=== PATIENT | female | born 1970 | race African-American/Black ===

== ENCOUNTER 2020-09-09 23:21 | Inpatient (IN) | payer MEDICARE, MEDICAID ==
[2020-09-10 00:23] LABS: #Basophils 0.1 thou/uL (0.0-0.2); #Eosinphils 0.2 thou/uL (0.0-0.7); #Lymphocytes 1.8 thou/uL (1.20-3.40); #Monocytes 0.4 thou/uL (0.11-0.59); #Neutrophils 8.2 thou/uL (1.40-6.50); %Basophils 1.3 % (0.0-1.0); %Eosinophils 1.5 % (0.0-10.0); %Monocytes 3.4 % (0.0-10.0); %Neutrophils 76.8 % (42.0-75.0); Hemoglobin 13.8 g/dL (12.0-16.0); Mean Corpuscular HGB CONC 31.9 g/dL (32.0-36.0); Mean Corpuscular Hemoglobin 32.3 pg (27.0-31.0); Mean Platelet Volume 10.3 fL (7.4-10.4); Platelet Count 160 thou/uL (130-400); RBC Distribution Width 14.7 % (11.5-14.5); Red Blood Cell (RBC) Count 4.27 mill/uL (4.20-5.40); White Blood Cell (WBC) Count 10.6 thou/uL (4.8-10.8)
[2020-09-10 00:45] LABS: ALT (SGPT) 10 U/L (8-55); AST (SGOT) 20 U/L (5-34); Alkaline Phosphatase 63 U/L (40-110); Anion Gap 16 mmol/L (10-20); BUN (Urea Nitrogen) 13 mg/dL (9.8-20.1); Bilirubin, Total 0.3 mg/dL (0.2-1.2); Calc. Creatinine Clearance 0 mL/min (70-130); Calcium 8.8 mg/dL (7.8-10.44); Carbon Dioxide 23 mmol/L (22-29); Chloride 109 mmol/L (98-107); Globulin 4.7 g/dL (2.4-3.5); Glucose 295 mg/dL (70-105); Potassium 3.7 mmol/L (3.5-5.1); Protein, Total 7.7 g/dL (6.0-8.3); Sodium 144 mmol/L (136-145)
[2020-09-10 01:06] LABS: CKMB 0.6 ng/mL (0-6.6)
[2020-09-10] MEDS ORDERED: Succinylcholine 200 MG/10 ml SYRINGE FS ONE ×2 (01:55→13:55)
[2020-09-10] MEDS ORDERED: Propofol 1,000 MG/100 ML VIAL IV ONE ×2 (02:02→06:29)
[2020-09-10] MEDS ORDERED: Fentanyl CADD 100 ML IV SCH (02:15)
[2020-09-10] MEDS ORDERED: Fentanyl BOLUS 250 ML IVPB PRN ×2 (02:15→05:00)
[2020-09-10] MEDS ORDERED: Ketamine 50 MG/ML (10ML VIAL) ONE (02:42)
[2020-09-10 03:19] LABS: Lactic Acid 2.8 mmol/L (0.5-2.2)
[2020-09-10] MEDS ORDERED: Vecuronium 10 MG VIAL ONE ×3 (03:35→05:16)
[2020-09-10] MEDS ORDERED: Norepinephrine 4 MG/4 ML VIAL ONE (04:24)
[2020-09-10] MEDS ORDERED: Norepinephrine 8 MG/0.9% NS 250 ML ONE (04:30)
[2020-09-10] MEDS ORDERED: Norepinephrine 8 MG/0.9% NS 250 ML IVPB SCH (04:30)
[2020-09-10] MEDS ORDERED: Water For Inject, Bacteriostat 30 ML ONE ×2 (04:36→05:17)
[2020-09-10] MEDS ORDERED: HYDROcodone/Acetaminophen 5/325 mg Tablet PO PRN (04:39)
[2020-09-10] MEDS ORDERED: cloNIDine 0.1 MG TAB PO PRN (04:39)
[2020-09-10] MEDS ORDERED: Labetalol HCl 100 MG/20 ML VIAL SLOW IVP PRN (04:39)
[2020-09-10] MEDS ORDERED: Guaifenesin DM 100-10/5 ML UDCUP PO PRN (04:39)
[2020-09-10] MEDS ORDERED: Acetaminophen 325 MG TAB PO PRN (04:39)
[2020-09-10] MEDS ORDERED: Promethazine HCl 12.5 MG in Sodium Chloride 0.9% 50 ML IVPB PRN (04:39)
[2020-09-10] MEDS ORDERED: hydrALAZINE 20 MG/ML VIAL SLOW IVP PRN (04:39)
[2020-09-10] MEDS ORDERED: Ondansetron PF 4 MG/2 ML Vial IVP PRN (04:39)
[2020-09-10] MEDS ORDERED: Morphine 2 MG/ML VIAL SLOW IVP PRN ×2 (04:39→05:00)
[2020-09-10] MEDS ORDERED: Norepinephrine 8 MG/0.9% NS 250 ML IVPB PRN (04:42)
[2020-09-10] MEDS ORDERED: Acetaminophen 325 MG/10.15 ML UDCUP PO PRN (04:42)
[2020-09-10] MEDS ORDERED: Phenylephrine 40 MG in Sodium Chloride 0.9% 250 ML 250 ML IVPB PRN (04:42)
[2020-09-10] MEDS ORDERED: Acetaminophen 325 MG Suppository PR PRN (04:42)
[2020-09-10] MEDS ORDERED: Ventilator Sedation Protocol 1 EACH FS SCH (04:45)
[2020-09-10] MEDS ORDERED: Electrolyte Replacement Protocol 1 EACH FS SCH (04:45)
[2020-09-10 04:47] LABS: Actual Bicarbonate (HCO3a) 24.2 mEq/L (22-28); Analyzer IN Cardio ER; Base Excess (BEa) -0.5 mEq/L (-2.0 to +3.0); CO2 Tension 40.4 mmHg (35.0-45.0); Calcium, Ionized (arterial) 1.18 mmol/L (1.12-1.30); Carboxyhemoglobin (COHb) 0.5 gm% (0.0-3.0); Hemoglobin (Hb) 14.4 g/dL (12.0-16.0); Potassium - ABG Lab 3.78 mmol/L (3.70-5.30)
[2020-09-10 04:49] LABS: Actual Bicarbonate (HCO3a) 19.4 mEq/L (22-28); Analyzer IN Cardio ER; Base Excess (BEa) -8.1 mEq/L (-2.0 to +3.0); CO2 Tension 47.5 mmHg (35.0-45.0); Calcium, Ionized (arterial) 1.16 mmol/L (1.12-1.30); Carboxyhemoglobin (COHb) 0.4 gm% (0.0-3.0); Hemoglobin (Hb) 14.2 g/dL (12.0-16.0); Potassium - ABG Lab 3.68 mmol/L (3.70-5.30)
[2020-09-10 04:50] LABS: O2 Tension (PaO2), arterial 47.7 mmHg (80.0-100.0); Puncture Site RBA
[2020-09-10 04:52] LABS: O2 Tension (PaO2), arterial 59.4 mmHg (80.0-100.0); Puncture Site Arterial Line; pH, Arterial 7.23 (7.35-7.45)
[2020-09-10 04:53] LABS: ALV-art Gradient 594.225 mmHg (0-20)
[2020-09-10] MEDS ORDERED: cefTRIAXone\\ROCEPHIN 1 GM in Sodium Chloride 0.9% 100 ML IVPB SCH (05:00)
[2020-09-10] MEDS ORDERED: Azithromycin 500 MG in Sodium Chloride 0.9% 250 ML 250 ML IVPB SCH (05:00)
[2020-09-10] MEDS ORDERED: DISCONTINUE PREVIOUS NARCOTIC PAIN MEDICATIONS AND BENZODIAZEPINES FS SCH (05:00)
[2020-09-10] MEDS ORDERED: Propofol BOLUS 1,000 MG/100 ML VIAL IV PRN (05:00)
[2020-09-10] MEDS ORDERED: Azithromycin 500 MG VIAL ONE (05:16)
[2020-09-10] MEDS ORDERED: cefTRIAXone\\ROCEPHIN 1 GM VIAL ONE (05:16)
[2020-09-10] MEDS ORDERED: Vecuronium 10 MG VIAL IVP PRN (05:24)
[2020-09-10] MEDS ORDERED: Dexamethasone 10 MG/ML VIAL ONE (05:34)
[2020-09-10] MEDS: Dexamethasone 4 mg/ml Vial SLOW IVP SCH (05:36)
[2020-09-10] MEDS ORDERED: Dextrose 5 % And 0.9 % NaCl 1,000 ML IV SCH ×2 (07:15→07:33)
[2020-09-10] MEDS: Heparin 5,000 UNITS/ML VIAL SC SCH ×3 (08:23→20:17)
[2020-09-10] MEDS: Famotidine/PF 20 mg/2ml Vial SLOW IVP SCH ×2 (08:24→20:17)
[2020-09-10] MEDS: Polyethylene Glycol 3350 17 GM Packet PO SCH (08:24)
[2020-09-10] MEDS: Propofol 1,000 MG/100 ML VIAL IV PRN ×5 (08:25→23:23)
[2020-09-10] MEDS ORDERED: Heparin 5,000 UNITS/ML VIAL SC SCH (09:00)
[2020-09-10] MEDS ORDERED: Famotidine 20 MG TAB PO SCH (09:00)
[2020-09-10] MEDS ORDERED: Iopamidol-370 76% 500 ML 1 ML ONE (10:05)
[2020-09-10] MEDS: NPH, Human Insulin Isophane 300 UNIT/3 ML VIAL SC SCH ×2 (11:03→21:38)
[2020-09-10] MEDS: Fentanyl CADD 100 ML IV SCH (12:15)
[2020-09-10] MEDS ORDERED: Insulin Regular 300 UNITS/3 ML VIAL ONE (14:36)
[2020-09-10] MEDS: HumaLOG 300 UNITS/3 ML VIAL SC PRN ×2 (14:39→21:38)
[2020-09-10] MEDS: Azithromycin 500 MG in Sodium Chloride 0.9% 250 ML 250 ML IVPB SCH (20:16)
[2020-09-10] MEDS: cefTRIAXone\\ROCEPHIN 1 GM in Sodium Chloride 0.9% 100 ML IVPB SCH (20:17)
[2020-09-10] MEDS ORDERED: Enoxaparin Sodium 40 MG/0.4 ML SYRINGE SC SCH (21:00)
[2020-09-11] MEDS: Propofol 1,000 MG/100 ML VIAL IV PRN ×6 (03:13→19:56)
[2020-09-11 04:15] LABS: Band 41 % (5-11); Hemoglobin 12.7 g/dL (12.0-16.0); Lymphocytes 9 % (21-51); MDiff Complete? YES; Mean Corpuscular Hemoglobin 32.6 pg (27.0-31.0); Mean Corpuscular Volume 98.9 fL (78.0-98.0); Mean Platelet Volume 10.2 fL (7.4-10.4); Monocytes 6 % (0-10); Neutrophil 44 % (42-75); Platelet Count 177 thou/uL (130-400); Platelet Morphology Comment Appears Adequate; RBC Distribution Width 14.9 % (11.5-14.5); Red Blood Cell (RBC) Count 3.91 mill/uL (4.20-5.40); Reflex for Review?? NO; White Blood Cell (WBC) Count 16.4 thou/uL (4.8-10.8)
[2020-09-11 04:30] LABS: Anion Gap 22 mmol/L (10-20); BUN (Urea Nitrogen) 15 mg/dL (9.8-20.1); Calc. Creatinine Clearance 135 mL/min (70-130); Calcium 8.7 mg/dL (7.8-10.44); Carbon Dioxide 15 mmol/L (22-29); Chloride 121 mmol/L (98-107); Glucose 203 mg/dL (70-105); Magnesium 2.4 mg/dL (1.6-2.6); Potassium 3.7 mmol/L (3.5-5.1); Sodium 154 mmol/L (136-145)
[2020-09-11] MEDS: Dexamethasone 4 mg/ml Vial SLOW IVP SCH (05:16)
[2020-09-11] MEDS: HumaLOG 300 UNITS/3 ML VIAL SC PRN (05:26)
[2020-09-11] MEDS: Polyethylene Glycol 3350 17 GM Packet PO SCH (08:00)
[2020-09-11] MEDS: Famotidine/PF 20 mg/2ml Vial SLOW IVP SCH (08:00)
[2020-09-11] MEDS: Heparin 5,000 UNITS/ML VIAL SC SCH ×3 (08:00→19:58)
[2020-09-11] MEDS: NPH, Human Insulin Isophane 300 UNIT/3 ML VIAL SC SCH ×2 (08:01→19:59)
[2020-09-11] MEDS: Sodium Bicarbonate 50 MEQ in Dextrose 5% in Water 1,000 ML IV SCH (10:02)
[2020-09-11] MEDS: Fentanyl CADD 100 ML IV SCH (10:02)
[2020-09-11] MEDS: Colchicine 0.6 MG TAB PER TUBE SCH (10:06)
[2020-09-11] MEDS ORDERED: Prevnar 13-Val Conj/PF 0.5 ML SYRINGE IM ONE (11:30)
[2020-09-11] MEDS: Divalproex Sodium DR 500 MG TAB PO SCH (19:55)
[2020-09-11] MEDS: busPIRone HCl 5 MG TAB PO SCH (19:55)
[2020-09-11] MEDS: cefTRIAXone\\ROCEPHIN 1 GM in Sodium Chloride 0.9% 100 ML IVPB SCH (19:56)
[2020-09-11] MEDS: Dorzolamide HCl 2% Ophth Soln 10 ml Bottle EA EYE SCH (19:57)
[2020-09-11] MEDS: Azithromycin 500 MG in Sodium Chloride 0.9% 250 ML 250 ML IVPB SCH (20:15)
[2020-09-11] MEDS ORDERED: Famotidine 20 MG TAB PO SCH (21:00)
[2020-09-12] MEDS: Propofol 1,000 MG/100 ML VIAL IV PRN ×5 (00:35→20:29)
[2020-09-12] MEDS: Sodium Bicarbonate 50 MEQ in Dextrose 5% in Water 1,000 ML IV SCH ×2 (03:23→13:21)
[2020-09-12 04:57] LABS: Band 20 % (5-11); Eosinophils 1 % (0-10); Hemoglobin 12.6 g/dL (12.0-16.0); Lymphocytes 12 % (21-51); MDiff Complete? YES; Mean Corpuscular Hemoglobin 30.4 pg (27.0-31.0); Mean Corpuscular Volume 98.1 fL (78.0-98.0); Monocytes 11 % (0-10); Neutrophil 56 % (42-75); Nucleated RBC 1 % (0); Platelet Count 200 thou/uL (130-400); Platelet Morphology Comment Appears Adequate; RBC Morphology Normal; Red Blood Cell (RBC) Count 4.13 mill/uL (4.20-5.40); White Blood Cell (WBC) Count 14.1 thou/uL (4.8-10.8)
[2020-09-12 05:11] LABS: Anion Gap 19 mmol/L (10-20); BUN (Urea Nitrogen) 14 mg/dL (9.8-20.1); Calc. Creatinine Clearance 159 mL/min (70-130); Calcium 8.4 mg/dL (7.8-10.44); Carbon Dioxide 17 mmol/L (22-29); Chloride 119 mmol/L (98-107); Glucose 229 mg/dL (70-105); Magnesium 2.4 mg/dL (1.6-2.6); Potassium 3.3 mmol/L (3.5-5.1); Sodium 152 mmol/L (136-145)
[2020-09-12] MEDS: Levothyroxine Sodium 25 MCG TAB PO SCH (05:23)
[2020-09-12] MEDS: Dexamethasone 4 mg/ml Vial SLOW IVP SCH (05:23)
[2020-09-12] MEDS ORDERED: Potassium Bicarbonate/Cit Ac 20 MEQ TAB PER TUBE SCH (07:45)
[2020-09-12] MEDS: Divalproex Sodium DR 500 MG TAB PO SCH ×2 (08:06→22:33)
[2020-09-12] MEDS: busPIRone HCl 5 MG TAB PO SCH ×2 (08:06→22:33)
[2020-09-12] MEDS: Colchicine 0.6 MG TAB PER TUBE SCH ×2 (08:06→22:34)
[2020-09-12] MEDS: Aspirin 81 mg Enteric Coated Tablet PO SCH (08:06)
[2020-09-12] MEDS: Heparin 5,000 UNITS/ML VIAL SC SCH ×3 (08:07→22:33)
[2020-09-12] MEDS: Cyanocobalamin (Vitamin B-12) 1,000 MCG TAB PO SCH (08:07)
[2020-09-12] MEDS: Dorzolamide HCl 2% Ophth Soln 10 ml Bottle EA EYE SCH ×2 (08:08→22:35)
[2020-09-12] MEDS: PARoxetine 20 MG TAB PO SCH (08:08)
[2020-09-12] MEDS: Pantoprazole 40 MG VIAL IVP SCH (08:08)
[2020-09-12] MEDS: NPH, Human Insulin Isophane 300 UNIT/3 ML VIAL SC SCH ×2 (08:09→22:15)
[2020-09-12] MEDS: Polyethylene Glycol 3350 17 GM Packet PO SCH (08:10)
[2020-09-12] MEDS ORDERED: Furosemide 40 MG/4 ML VIAL ONE (09:35)
[2020-09-12] MEDS: Fentanyl CADD 100 ML IV SCH (09:45)
[2020-09-12] MEDS: Azithromycin 500 MG in Sodium Chloride 0.9% 250 ML 250 ML IVPB SCH (22:17)
[2020-09-12] MEDS: cefTRIAXone\\ROCEPHIN 1 GM in Sodium Chloride 0.9% 100 ML IVPB SCH (22:31)
[2020-09-13] MEDS: Propofol 1,000 MG/100 ML VIAL IV PRN ×6 (00:13→22:34)
[2020-09-13] MEDS: Dexamethasone 4 mg/ml Vial SLOW IVP SCH (05:23)
[2020-09-13] MEDS: Levothyroxine Sodium 25 MCG TAB PO SCH (05:23)
[2020-09-13] MEDS ORDERED: Propofol 1,000 MG/100 ML VIAL IV ONE (05:38)
[2020-09-13] MEDS: HumaLOG 300 UNITS/3 ML VIAL SC PRN ×2 (05:53→20:33)
[2020-09-13 05:54] LABS: Band 18 % (5-11); Eosinophils 1 % (0-10); Hemoglobin 12.7 g/dL (12.0-16.0); Lymphocytes 20 % (21-51); MDiff Complete? YES; Mean Corpuscular HGB CONC 32.1 g/dL (32.0-36.0); Mean Corpuscular Hemoglobin 31.7 pg (27.0-31.0); Mean Corpuscular Volume 98.5 fL (78.0-98.0); Mean Platelet Volume 10.6 fL (7.4-10.4); Metamyelocyte 1 % (0-0); Monocytes 4 % (0-10); Myelocyte 1 % (0-0); Neutrophil 55 % (42-75); Nucleated RBC 1 % (0); Platelet Count 204 thou/uL (130-400); RBC Distribution Width 14.9 % (11.5-14.5); Red Blood Cell (RBC) Count 4.03 mill/uL (4.20-5.40)
[2020-09-13 05:55] LABS: Anion Gap 21 mmol/L (10-20); BUN (Urea Nitrogen) 17 mg/dL (9.8-20.1); Calc. Creatinine Clearance 164 mL/min (70-130); Calcium 8.1 mg/dL (7.8-10.44); Carbon Dioxide 20 mmol/L (22-29); Chloride 115 mmol/L (98-107); Glucose 255 mg/dL (70-105); Magnesium 2.1 mg/dL (1.6-2.6); Potassium 3.3 mmol/L (3.5-5.1); Sodium 153 mmol/L (136-145)
[2020-09-13] MEDS ORDERED: Potassium Bicarbonate/Cit Ac 20 MEQ TAB PER TUBE SCH (06:45)
[2020-09-13] MEDS: Polyethylene Glycol 3350 17 GM Packet PO SCH (08:03)
[2020-09-13] MEDS: Colchicine 0.6 MG TAB PER TUBE SCH ×2 (08:04→20:27)
[2020-09-13] MEDS: Aspirin 81 mg Enteric Coated Tablet PO SCH (08:04)
[2020-09-13] MEDS: Divalproex Sodium DR 500 MG TAB PO SCH ×2 (08:04→20:27)
[2020-09-13] MEDS: PARoxetine 20 MG TAB PO SCH (08:04)
[2020-09-13] MEDS: Cyanocobalamin (Vitamin B-12) 1,000 MCG TAB PO SCH (08:04)
[2020-09-13] MEDS: Dorzolamide HCl 2% Ophth Soln 10 ml Bottle EA EYE SCH ×2 (08:05→20:40)
[2020-09-13] MEDS: Heparin 5,000 UNITS/ML VIAL SC SCH ×3 (08:05→20:27)
[2020-09-13] MEDS: busPIRone HCl 5 MG TAB PO SCH ×2 (08:05→20:27)
[2020-09-13] MEDS: NPH, Human Insulin Isophane 300 UNIT/3 ML VIAL SC SCH ×2 (08:06→20:29)
[2020-09-13] MEDS: Pantoprazole 40 MG VIAL IVP SCH (11:42)
[2020-09-13] MEDS: Fentanyl CADD 100 ML IV SCH (12:07)
[2020-09-13 12:14] LABS: Potassium 3.9 mmol/L (3.5-5.1)
[2020-09-13] MEDS ORDERED: hydrALAZINE 20 MG/ML VIAL SLOW IVP PRN (15:11)
[2020-09-13] MEDS: cefTRIAXone\\ROCEPHIN 1 GM in Sodium Chloride 0.9% 100 ML IVPB SCH (20:27)
[2020-09-13] MEDS: Azithromycin 500 MG in Sodium Chloride 0.9% 250 ML 250 ML IVPB SCH (20:34)
[2020-09-13] MEDS: Dextrose 5% in Water 1,000 ML IV SCH ×2 (20:38→22:36)
[2020-09-14] MEDS: HumaLOG 300 UNITS/3 ML VIAL SC PRN ×3 (00:43→20:58)
[2020-09-14] MEDS: Propofol 1,000 MG/100 ML VIAL IV PRN ×5 (03:56→20:42)
[2020-09-14 05:13] LABS: Anion Gap 19 mmol/L (10-20); BUN (Urea Nitrogen) 19 mg/dL (9.8-20.1); Calc. Creatinine Clearance 181 mL/min (70-130); Calcium 8.2 mg/dL (7.8-10.44); Carbon Dioxide 20 mmol/L (22-29); Chloride 113 mmol/L (98-107); Glucose 207 mg/dL (70-105); Potassium 3.3 mmol/L (3.5-5.1); Sodium 149 mmol/L (136-145)
[2020-09-14] MEDS: Levothyroxine Sodium 25 MCG TAB PO SCH (05:29)
[2020-09-14] MEDS: Dexamethasone 4 mg/ml Vial SLOW IVP SCH (05:29)
[2020-09-14 06:15] LABS: Band 13 % (5-11); Eosinophils 3 % (0-10); Hemoglobin 12.7 g/dL (12.0-16.0); Lymphocytes 23 % (21-51); MDiff Complete? YES; Mean Corpuscular HGB CONC 32.9 g/dL (32.0-36.0); Mean Corpuscular Hemoglobin 32.4 pg (27.0-31.0); Mean Corpuscular Volume 98.4 fL (78.0-98.0); Mean Platelet Volume 10.1 fL (7.4-10.4); Neutrophil 61 % (42-75); Platelet Count 233 thou/uL (130-400); RBC Distribution Width 14.6 % (11.5-14.5); Red Blood Cell (RBC) Count 3.92 mill/uL (4.20-5.40); White Blood Cell (WBC) Count 9.8 thou/uL (4.8-10.8)
[2020-09-14] MEDS: Potassium Bicarbonate/Cit Ac 20 MEQ TAB PER TUBE SCH (06:29)
[2020-09-14] MEDS: NPH, Human Insulin Isophane 300 UNIT/3 ML VIAL SC SCH ×2 (08:29→20:58)
[2020-09-14] MEDS: Heparin 5,000 UNITS/ML VIAL SC SCH ×3 (08:29→21:02)
[2020-09-14] MEDS: Colchicine 0.6 MG TAB PER TUBE SCH ×2 (08:30→21:10)
[2020-09-14] MEDS: Divalproex Sodium DR 500 MG TAB PO SCH ×2 (08:30→20:43)
[2020-09-14] MEDS: Polyethylene Glycol 3350 17 GM Packet PO SCH (08:30)
[2020-09-14] MEDS: Aspirin 81 mg Enteric Coated Tablet PO SCH (08:30)
[2020-09-14] MEDS: Pantoprazole 40 MG VIAL IVP SCH (08:30)
[2020-09-14] MEDS: Cyanocobalamin (Vitamin B-12) 1,000 MCG TAB PO SCH (08:31)
[2020-09-14] MEDS: Dextrose 5% in Water 1,000 ML IV SCH ×2 (08:31→11:29)
[2020-09-14] MEDS: Dorzolamide HCl 2% Ophth Soln 10 ml Bottle EA EYE SCH ×2 (08:31→21:02)
[2020-09-14] MEDS: busPIRone HCl 5 MG TAB PO SCH ×2 (08:31→20:43)
[2020-09-14] MEDS: PARoxetine 20 MG TAB PO SCH (08:31)
[2020-09-14] MEDS: Azithromycin 500 MG in Sodium Chloride 0.9% 250 ML 250 ML IVPB SCH (20:43)
[2020-09-14] MEDS: cefTRIAXone\\ROCEPHIN 1 GM in Sodium Chloride 0.9% 100 ML IVPB SCH (20:59)
[2020-09-14] MEDS ORDERED: Fentanyl CADD 100 ML ONE (21:29)
[2020-09-14] MEDS: Fentanyl CADD 100 ML IV SCH (21:31)
[2020-09-15] MEDS: HumaLOG 300 UNITS/3 ML VIAL SC PRN ×4 (00:18→12:00)
[2020-09-15] MEDS: Dextrose 5% in Water 1,000 ML IV SCH ×3 (00:57→21:52)
[2020-09-15] MEDS: Propofol 1,000 MG/100 ML VIAL IV PRN ×5 (01:02→20:10)
[2020-09-15 03:43] LABS: Anion Gap 15 mmol/L (10-20); BUN (Urea Nitrogen) 24 mg/dL (9.8-20.1); Calc. Creatinine Clearance 157 mL/min (70-130); Calcium 8.3 mg/dL (7.8-10.44); Carbon Dioxide 23 mmol/L (22-29); Chloride 112 mmol/L (98-107); Glucose 264 mg/dL (70-105); Potassium 3.4 mmol/L (3.5-5.1); Sodium 147 mmol/L (136-145)
[2020-09-15 05:06] LABS: Band 17 % (5-11); Hemoglobin 12.9 g/dL (12.0-16.0); Lymphocytes 21 % (21-51); MDiff Complete? YES; Mean Corpuscular HGB CONC 31.9 g/dL (32.0-36.0); Mean Corpuscular Hemoglobin 31.7 pg (27.0-31.0); Mean Corpuscular Volume 99.1 fL (78.0-98.0); Mean Platelet Volume 10.5 fL (7.4-10.4); Monocytes 2 % (0-10); Myelocyte 1 % (0-0); Neutrophil 58 % (42-75); Platelet Count 252 thou/uL (130-400); RBC Distribution Width 14.8 % (11.5-14.5); Reactive Lymphocytes 1 % (0-10); Red Blood Cell (RBC) Count 4.07 mill/uL (4.20-5.40); White Blood Cell (WBC) Count 11.2 thou/uL (4.8-10.8)
[2020-09-15] MEDS: Potassium Bicarbonate/Cit Ac 20 MEQ TAB PER TUBE SCH (05:06)
[2020-09-15] MEDS: Levothyroxine Sodium 25 MCG TAB PO SCH (05:06)
[2020-09-15] MEDS: Dexamethasone 4 mg/ml Vial SLOW IVP SCH (05:06)
[2020-09-15] MEDS ORDERED: Potassium Bicarbonate/Cit Ac 20 MEQ TAB PER TUBE SCH ×2 (05:15→08:15)
[2020-09-15] MEDS: Polyethylene Glycol 3350 17 GM Packet PO SCH (08:04)
[2020-09-15] MEDS: Divalproex Sodium DR 500 MG TAB PO SCH ×2 (08:04→20:12)
[2020-09-15] MEDS: PARoxetine 20 MG TAB PO SCH (08:04)
[2020-09-15] MEDS: Heparin 5,000 UNITS/ML VIAL SC SCH ×3 (08:05→20:13)
[2020-09-15] MEDS: Pantoprazole 40 MG VIAL IVP SCH (08:06)
[2020-09-15] MEDS: Cyanocobalamin (Vitamin B-12) 1,000 MCG TAB PO SCH (08:07)
[2020-09-15] MEDS: Colchicine 0.6 MG TAB PER TUBE SCH ×2 (08:07→20:12)
[2020-09-15] MEDS: busPIRone HCl 5 MG TAB PO SCH ×2 (08:07→20:14)
[2020-09-15] MEDS: Aspirin 81 mg Enteric Coated Tablet PO SCH (08:07)
[2020-09-15] MEDS: NPH, Human Insulin Isophane 300 UNIT/3 ML VIAL SC SCH ×2 (08:08→20:54)
[2020-09-15] MEDS: Dorzolamide HCl 2% Ophth Soln 10 ml Bottle EA EYE SCH ×2 (09:00→20:12)
[2020-09-15] MEDS ORDERED: Dextrose 5% in Water 1,000 ML IV PRN (14:09)
[2020-09-15] MEDS: Insulin Regular 300 UNITS/3 ML VIAL SC PRN ×2 (17:18→20:53)
[2020-09-15] MEDS: cefTRIAXone\\ROCEPHIN 1 GM in Sodium Chloride 0.9% 100 ML IVPB SCH (20:10)
[2020-09-15] MEDS: Azithromycin 500 MG in Sodium Chloride 0.9% 250 ML 250 ML IVPB SCH (21:52)
[2020-09-15] MEDS ORDERED: Fentanyl CADD 100 ML ONE (22:13)
[2020-09-16] MEDS: Insulin Regular 300 UNITS/3 ML VIAL SC PRN ×5 (00:03→16:00)
[2020-09-16] MEDS: Fentanyl CADD 100 ML IV SCH (00:03)
[2020-09-16] MEDS: Propofol 1,000 MG/100 ML VIAL IV PRN ×2 (02:01→08:45)
[2020-09-16 04:15] LABS: Anion Gap 13 mmol/L (10-20); BUN (Urea Nitrogen) 28 mg/dL (9.8-20.1); Calc. Creatinine Clearance 133 mL/min (70-130); Carbon Dioxide 25 mmol/L (22-29); Chloride 110 mmol/L (98-107); Glucose 266 mg/dL (70-105); Potassium 3.8 mmol/L (3.5-5.1); Sodium 144 mmol/L (136-145)
[2020-09-16 04:35] LABS: Band 13 % (5-11); Hemoglobin 12.3 g/dL (12.0-16.0); Lymphocytes 24 % (21-51); MDiff Complete? YES; Mean Corpuscular HGB CONC 33.2 g/dL (32.0-36.0); Mean Corpuscular Hemoglobin 33.4 pg (27.0-31.0); Mean Platelet Volume 10.3 fL (7.4-10.4); Monocytes 3 % (0-10); Myelocyte 3 % (0-0); Neutrophil 57 % (42-75); Nucleated RBC 1 % (0); Platelet Count 228 thou/uL (130-400); RBC Distribution Width 14.7 % (11.5-14.5); Red Blood Cell (RBC) Count 3.67 mill/uL (4.20-5.40); White Blood Cell (WBC) Count 12.8 thou/uL (4.8-10.8)
[2020-09-16] MEDS: Levothyroxine Sodium 25 MCG TAB PO SCH (05:48)
[2020-09-16] MEDS: Dexamethasone 4 mg/ml Vial SLOW IVP SCH (05:48)
[2020-09-16] MEDS: Dextrose 5% in Water 1,000 ML IV SCH (08:45)
[2020-09-16] MEDS: PARoxetine 20 MG TAB PO SCH (08:46)
[2020-09-16] MEDS: Cyanocobalamin (Vitamin B-12) 1,000 MCG TAB PO SCH (08:46)
[2020-09-16] MEDS: Divalproex Sodium DR 500 MG TAB PO SCH ×2 (08:46→21:19)
[2020-09-16] MEDS: Aspirin 81 mg Enteric Coated Tablet PO SCH (08:46)
[2020-09-16] MEDS: Pantoprazole 40 MG VIAL IVP SCH (08:46)
[2020-09-16] MEDS: Dorzolamide HCl 2% Ophth Soln 10 ml Bottle EA EYE SCH ×2 (08:47→21:19)
[2020-09-16] MEDS: busPIRone HCl 5 MG TAB PO SCH ×2 (08:47→21:19)
[2020-09-16] MEDS: Heparin 5,000 UNITS/ML VIAL SC SCH ×3 (08:47→21:18)
[2020-09-16] MEDS: NPH, Human Insulin Isophane 300 UNIT/3 ML VIAL SC SCH ×2 (08:48→21:22)
[2020-09-16] MEDS: Colchicine 0.6 MG TAB PER TUBE SCH ×2 (08:49→21:20)
[2020-09-16] MEDS: Polyethylene Glycol 3350 17 GM Packet PO SCH (09:00)
[2020-09-16] MEDS: Sodium Chloride 0.45% 1,000 ML IV SCH (15:37)
[2020-09-16] MEDS: cefTRIAXone\\ROCEPHIN 1 GM in Sodium Chloride 0.9% 100 ML IVPB SCH (21:17)
[2020-09-16] MEDS: Azithromycin 500 MG in Sodium Chloride 0.9% 250 ML 250 ML IVPB SCH (21:19)
[2020-09-17] MEDS: Sodium Chloride 0.45% 1,000 ML IV SCH ×3 (04:07→20:58)
[2020-09-17] MEDS: Dexamethasone 4 mg/ml Vial SLOW IVP SCH (04:59)
[2020-09-17] MEDS: Dextrose 50% Abboject 50 ML SYRINGE SLOW IVP PRN (04:59)
[2020-09-17] MEDS: Levothyroxine Sodium 25 MCG TAB PO SCH (05:00)
[2020-09-17 05:26] LABS: Anion Gap 12 mmol/L (10-20); BUN (Urea Nitrogen) 32 mg/dL (9.8-20.1); Calc. Creatinine Clearance 155 mL/min (70-130); Carbon Dioxide 24 mmol/L (22-29); Chloride 110 mmol/L (98-107); Glucose 68 mg/dL (70-105); Potassium 3.1 mmol/L (3.5-5.1); Sodium 143 mmol/L (136-145)
[2020-09-17 05:47] LABS: Band 4 % (5-11); Eosinophils 2 % (0-10); Hemoglobin 12.4 g/dL (12.0-16.0); Lymphocytes 30 % (21-51); MDiff Complete? YES; Mean Corpuscular HGB CONC 31.5 g/dL (32.0-36.0); Mean Corpuscular Hemoglobin 31.4 pg (27.0-31.0); Mean Corpuscular Volume 99.7 fL (78.0-98.0); Mean Platelet Volume 10.4 fL (7.4-10.4); Monocytes 6 % (0-10); Myelocyte 4 % (0-0); Neutrophil 53 % (42-75); Nucleated RBC 1 % (0); Platelet Count 267 thou/uL (130-400); RBC Distribution Width 14.7 % (11.5-14.5); Reactive Lymphocytes 1 % (0-10); Red Blood Cell (RBC) Count 3.94 mill/uL (4.20-5.40); White Blood Cell (WBC) Count 16.3 thou/uL (4.8-10.8)
[2020-09-17] MEDS: Cyanocobalamin (Vitamin B-12) 1,000 MCG TAB PO SCH (07:56)
[2020-09-17] MEDS: Divalproex Sodium DR 500 MG TAB PO SCH ×2 (07:56→20:30)
[2020-09-17] MEDS: busPIRone HCl 5 MG TAB PO SCH ×2 (07:56→20:28)
[2020-09-17] MEDS: Colchicine 0.6 MG TAB PER TUBE SCH ×2 (07:56→20:30)
[2020-09-17] MEDS: Aspirin 81 mg Enteric Coated Tablet PO SCH (07:56)
[2020-09-17] MEDS: Pantoprazole 40 MG VIAL IVP SCH (07:57)
[2020-09-17] MEDS: PARoxetine 20 MG TAB PO SCH (07:57)
[2020-09-17] MEDS: Polyethylene Glycol 3350 17 GM Packet PO SCH (07:57)
[2020-09-17] MEDS: Dorzolamide HCl 2% Ophth Soln 10 ml Bottle EA EYE SCH ×2 (07:59→20:30)
[2020-09-17] MEDS: Heparin 5,000 UNITS/ML VIAL SC SCH ×3 (08:00→20:30)
[2020-09-17] MEDS: NPH, Human Insulin Isophane 300 UNIT/3 ML VIAL SC SCH (08:14)
[2020-09-17] MEDS ORDERED: Potassium Chloride 20 MEQ TAB PO SCH (08:15)
[2020-09-17] MEDS ORDERED: NPH, Human Insulin Isophane 300 UNIT/3 ML VIAL SC SCH (09:02)
[2020-09-17] MEDS: Insulin Regular 300 UNITS/3 ML VIAL SC PRN ×2 (13:11→16:43)
[2020-09-17] MEDS: Azithromycin 500 MG in Sodium Chloride 0.9% 250 ML 250 ML IVPB SCH (20:27)
[2020-09-17] MEDS: cefTRIAXone\\ROCEPHIN 1 GM in Sodium Chloride 0.9% 100 ML IVPB SCH (20:28)
[2020-09-18] MEDS: Insulin Regular 300 UNITS/3 ML VIAL SC PRN ×6 (00:17→23:52)
[2020-09-18] MEDS: Dexamethasone 4 mg/ml Vial SLOW IVP SCH (07:14)
[2020-09-18] MEDS: Levothyroxine Sodium 25 MCG TAB PO SCH (07:15)
[2020-09-18 07:22] LABS: Anion Gap 11 mmol/L (10-20); BUN (Urea Nitrogen) 28 mg/dL (9.8-20.1); Calc. Creatinine Clearance 172 mL/min (70-130); Calcium 8.1 mg/dL (7.8-10.44); Carbon Dioxide 25 mmol/L (22-29); Chloride 110 mmol/L (98-107); Glucose 227 mg/dL (70-105); Potassium 3.8 mmol/L (3.5-5.1); Sodium 142 mmol/L (136-145)
[2020-09-18 08:37] LABS: Mean Corpuscular HGB CONC 31.4 g/dL (32.0-36.0); Mean Corpuscular Hemoglobin 31.5 pg (27.0-31.0); Mean Platelet Volume 10.4 fL (7.4-10.4); Platelet Count 249 thou/uL (130-400); RBC Distribution Width 14.6 % (11.5-14.5); Red Blood Cell (RBC) Count 3.81 mill/uL (4.20-5.40); White Blood Cell (WBC) Count 15.8 thou/uL (4.8-10.8)
[2020-09-18] MEDS: Aspirin 81 mg Enteric Coated Tablet PO SCH (08:41)
[2020-09-18] MEDS: PARoxetine 20 MG TAB PO SCH (08:41)
[2020-09-18] MEDS: Cyanocobalamin (Vitamin B-12) 1,000 MCG TAB PO SCH (08:42)
[2020-09-18] MEDS: Dorzolamide HCl 2% Ophth Soln 10 ml Bottle EA EYE SCH ×2 (08:42→20:27)
[2020-09-18] MEDS: Colchicine 0.6 MG TAB PER TUBE SCH ×2 (08:42→20:27)
[2020-09-18] MEDS: Pantoprazole 40 MG VIAL IVP SCH (08:42)
[2020-09-18] MEDS: busPIRone HCl 5 MG TAB PO SCH ×2 (08:42→20:27)
[2020-09-18] MEDS: Divalproex Sodium DR 500 MG TAB PO SCH ×2 (08:42→20:27)
[2020-09-18] MEDS: Heparin 5,000 UNITS/ML VIAL SC SCH ×3 (08:43→20:27)
[2020-09-18] MEDS: Polyethylene Glycol 3350 17 GM Packet PO SCH (08:43)
[2020-09-18 09:52] LABS: Band 10 % (5-11); Eosinophils 2 % (0-10); Lymphocytes 31 % (21-51); MDiff Complete? YES; Monocytes 8 % (0-10); Myelocyte 1 % (0-0); Neutrophil 48 % (42-75); RBC Morphology Normal
[2020-09-18] MEDS: Sodium Chloride 0.45% 1,000 ML IV SCH (18:33)
[2020-09-18] MEDS ORDERED: Insulin Glargine 10 UNITS in Pre-Filled Syringe SC SCH (21:00)
[2020-09-18] MEDS: Lorazepam 2 MG/ML VIAL SLOW IVP PRN (21:56)
[2020-09-19] MEDS: Levothyroxine Sodium 25 MCG TAB PO SCH (05:36)
[2020-09-19] MEDS: Dexamethasone 4 mg/ml Vial SLOW IVP SCH (05:36)
[2020-09-19] MEDS: Insulin Regular 300 UNITS/3 ML VIAL SC PRN ×4 (06:11→21:06)
[2020-09-19] MEDS: Sodium Chloride 0.45% 1,000 ML IV SCH ×2 (09:54→23:46)
[2020-09-19] MEDS: Divalproex Sodium DR 500 MG TAB PO SCH (09:55)
[2020-09-19] MEDS: Heparin 5,000 UNITS/ML VIAL SC SCH ×3 (09:55→21:04)
[2020-09-19] MEDS: Aspirin Chewable 81 MG TAB PO SCH (09:57)
[2020-09-19] MEDS: Colchicine 0.6 MG TAB PER TUBE SCH ×2 (09:57→20:25)
[2020-09-19] MEDS: busPIRone HCl 5 MG TAB PO SCH ×2 (09:57→20:25)
[2020-09-19] MEDS: Cyanocobalamin (Vitamin B-12) 1,000 MCG TAB PO SCH (09:57)
[2020-09-19] MEDS: Dorzolamide HCl 2% Ophth Soln 10 ml Bottle EA EYE SCH ×2 (09:58→20:26)
[2020-09-19] MEDS: Pantoprazole 40 MG GRANULES PACKET PER TUBE SCH (09:58)
[2020-09-19] MEDS: Polyethylene Glycol 3350 17 GM Packet PO SCH (09:59)
[2020-09-19] MEDS: PARoxetine 20 MG TAB PO SCH (10:02)
[2020-09-19] MEDS: Divalproex Sodium 125 mg Sprinkle Capsule PO SCH (20:26)
[2020-09-19] MEDS ORDERED: Insulin Glargine 20 UNITS in Pre-Filled Syringe SC SCH (21:00)
[2020-09-19] MEDS: Lorazepam 2 MG/ML VIAL SLOW IVP PRN (21:28)
[2020-09-20] MEDS: Insulin Regular 300 UNITS/3 ML VIAL SC PRN ×5 (00:18→16:12)
[2020-09-20 03:59] LABS: Band 5 % (5-11); Hemoglobin 12.5 g/dL (12.0-16.0); Lymphocytes 18 % (21-51); MDiff Complete? YES; Mean Corpuscular HGB CONC 31.3 g/dL (32.0-36.0); Mean Corpuscular Hemoglobin 31.1 pg (27.0-31.0); Mean Corpuscular Volume 99.2 fL (78.0-98.0); Mean Platelet Volume 10.8 fL (7.4-10.4); Metamyelocyte 3 % (0-0); Monocytes 9 % (0-10); Neutrophil 65 % (42-75); Platelet Count 247 thou/uL (130-400); Platelet Morphology Comment Appears Adequate; RBC Distribution Width 14.7 % (11.5-14.5); Red Blood Cell (RBC) Count 4.02 mill/uL (4.20-5.40); White Blood Cell (WBC) Count 16.6 thou/uL (4.8-10.8)
[2020-09-20 04:06] LABS: Anion Gap 12 mmol/L (10-20); BUN (Urea Nitrogen) 33 mg/dL (9.8-20.1); Calc. Creatinine Clearance 196 mL/min (70-130); Calcium 8.6 mg/dL (7.8-10.44); Carbon Dioxide 25 mmol/L (22-29); Chloride 104 mmol/L (98-107); Glucose 268 mg/dL (70-105); Potassium 3.9 mmol/L (3.5-5.1); Sodium 137 mmol/L (136-145)
[2020-09-20] MEDS: Levothyroxine Sodium 25 MCG TAB PO SCH (05:07)
[2020-09-20] MEDS: Dexamethasone 4 mg/ml Vial SLOW IVP SCH ×2 (05:07→08:59)
[2020-09-20] MEDS: Divalproex Sodium 125 mg Sprinkle Capsule PO SCH ×2 (08:53→20:24)
[2020-09-20] MEDS: Heparin 5,000 UNITS/ML VIAL SC SCH ×3 (08:54→20:25)
[2020-09-20] MEDS: Colchicine 0.6 MG TAB PER TUBE SCH ×2 (08:54→20:22)
[2020-09-20] MEDS: Dorzolamide HCl 2% Ophth Soln 10 ml Bottle EA EYE SCH ×2 (08:54→20:22)
[2020-09-20] MEDS: Aspirin Chewable 81 MG TAB PO SCH (08:55)
[2020-09-20] MEDS: PARoxetine 20 MG TAB PO SCH (08:55)
[2020-09-20] MEDS: Cyanocobalamin (Vitamin B-12) 1,000 MCG TAB PO SCH (08:55)
[2020-09-20] MEDS: busPIRone HCl 5 MG TAB PO SCH ×2 (08:56→20:22)
[2020-09-20] MEDS: Polyethylene Glycol 3350 17 GM Packet PO SCH (08:56)
[2020-09-20] MEDS: Pantoprazole 40 MG GRANULES PACKET PER TUBE SCH (08:56)
[2020-09-20] MEDS: Sodium Chloride 0.45% 1,000 ML IV SCH ×2 (12:17→23:56)
[2020-09-20] MEDS: Insulin Glargine 20 UNITS in Pre-Filled Syringe 1 EACH SC SCH (20:26)
[2020-09-20] MEDS ORDERED: Insulin Glargine 25 UNITS in Pre-Filled Syringe 1 EACH SC SCH (21:00)
[2020-09-21] MEDS: Insulin Regular 300 UNITS/3 ML VIAL SC PRN ×3 (00:15→16:46)
[2020-09-21 04:23] LABS: #Basophils 0.1 thou/uL (0.0-0.2); #Eosinphils 0.1 thou/uL (0.0-0.7); #Lymphocytes 3.5 thou/uL (1.20-3.40); #Monocytes 1.2 thou/uL (0.11-0.59); #Neutrophils 10.8 thou/uL (1.40-6.50); %Basophils 0.5 % (0.0-1.0); %Eosinophils 0.3 % (0.0-10.0); %Lymphocytes 22.2 % (21.0-51.0); %Monocytes 7.7 % (0.0-10.0); %Neutrophils 69.3 % (42.0-75.0); Mean Corpuscular HGB CONC 31.3 g/dL (32.0-36.0); Mean Corpuscular Hemoglobin 31.1 pg (27.0-31.0); Mean Corpuscular Volume 99.3 fL (78.0-98.0); Mean Platelet Volume 10.7 fL (7.4-10.4); Platelet Count 247 thou/uL (130-400); RBC Distribution Width 14.9 % (11.5-14.5); Red Blood Cell (RBC) Count 3.86 mill/uL (4.20-5.40); White Blood Cell (WBC) Count 15.6 thou/uL (4.8-10.8)
[2020-09-21 04:47] LABS: Anion Gap 12 mmol/L (10-20); BUN (Urea Nitrogen) 36 mg/dL (9.8-20.1); Calc. Creatinine Clearance 168 mL/min (70-130); Calcium 8.4 mg/dL (7.8-10.44); Carbon Dioxide 25 mmol/L (22-29); Chloride 104 mmol/L (98-107); Glucose 271 mg/dL (70-105); Potassium 3.9 mmol/L (3.5-5.1); Sodium 137 mmol/L (136-145)
[2020-09-21] MEDS: Levothyroxine Sodium 25 MCG TAB PO SCH (05:00)
[2020-09-21] MEDS: Heparin 5,000 UNITS/ML VIAL SC SCH ×3 (08:15→19:56)
[2020-09-21] MEDS: Dorzolamide HCl 2% Ophth Soln 10 ml Bottle EA EYE SCH ×2 (08:16→19:55)
[2020-09-21] MEDS: Colchicine 0.6 MG TAB PER TUBE SCH ×2 (08:16→19:55)
[2020-09-21] MEDS: Cyanocobalamin (Vitamin B-12) 1,000 MCG TAB PO SCH (08:17)
[2020-09-21] MEDS: PARoxetine 20 MG TAB PO SCH (08:17)
[2020-09-21] MEDS: Dexamethasone 4 mg/ml Vial SLOW IVP SCH (08:18)
[2020-09-21] MEDS: Aspirin Chewable 81 MG TAB PO SCH (08:22)
[2020-09-21] MEDS: Divalproex Sodium 125 mg Sprinkle Capsule PO SCH ×2 (08:22→19:54)
[2020-09-21] MEDS: busPIRone HCl 5 MG TAB PO SCH ×2 (08:22→19:54)
[2020-09-21] MEDS: Polyethylene Glycol 3350 17 GM Packet PO SCH (08:24)
[2020-09-21] MEDS: Pantoprazole 40 MG GRANULES PACKET PER TUBE SCH (08:26)
[2020-09-21] MEDS: Sodium Chloride 0.45% 1,000 ML IV SCH (08:27)
[2020-09-21] MEDS ORDERED: Scopolamine 1.5 mg/72 hour Patch TOP SCH (13:00)
[2020-09-21] MEDS: Insulin Glargine 20 UNITS in Pre-Filled Syringe 1 EACH SC SCH (20:28)
[2020-09-22] MEDS: Insulin Regular 300 UNITS/3 ML VIAL SC PRN ×4 (00:10→20:30)
[2020-09-22 04:10] LABS: #Basophils 0.1 thou/uL (0.0-0.2); #Eosinphils 0.1 thou/uL (0.0-0.7); #Lymphocytes 4.5 thou/uL (1.20-3.40); #Monocytes 1.5 thou/uL (0.11-0.59); #Neutrophils 12.6 thou/uL (1.40-6.50); %Basophils 0.5 % (0.0-1.0); %Eosinophils 0.7 % (0.0-10.0); %Lymphocytes 23.7 % (21.0-51.0); %Monocytes 8.2 % (0.0-10.0); %Neutrophils 66.9 % (42.0-75.0); Hemoglobin 12.2 g/dL (12.0-16.0); Mean Corpuscular HGB CONC 31.5 g/dL (32.0-36.0); Mean Corpuscular Hemoglobin 31.4 pg (27.0-31.0); Mean Corpuscular Volume 99.6 fL (78.0-98.0); Mean Platelet Volume 10.9 fL (7.4-10.4); Platelet Count 241 thou/uL (130-400); RBC Distribution Width 14.9 % (11.5-14.5); Red Blood Cell (RBC) Count 3.87 mill/uL (4.20-5.40); White Blood Cell (WBC) Count 18.7 thou/uL (4.8-10.8)
[2020-09-22] MEDS: Sodium Chloride 0.45% 1,000 ML IV SCH ×2 (04:10→16:48)
[2020-09-22 04:33] LABS: Anion Gap 12 mmol/L (10-20); BUN (Urea Nitrogen) 34 mg/dL (9.8-20.1); Calc. Creatinine Clearance 173 mL/min (70-130); Calcium 8.5 mg/dL (7.8-10.44); Carbon Dioxide 25 mmol/L (22-29); Chloride 103 mmol/L (98-107); Glucose 240 mg/dL (70-105); Sodium 136 mmol/L (136-145)
[2020-09-22] MEDS: Levothyroxine Sodium 25 MCG TAB PO SCH (04:59)
[2020-09-22] MEDS: busPIRone HCl 5 MG TAB PO SCH ×2 (08:52→19:50)
[2020-09-22] MEDS: Colchicine 0.6 MG TAB PER TUBE SCH ×2 (08:52→19:50)
[2020-09-22] MEDS: Aspirin Chewable 81 MG TAB PO SCH (08:52)
[2020-09-22] MEDS: Pantoprazole 40 MG GRANULES PACKET PER TUBE SCH (08:53)
[2020-09-22] MEDS: Divalproex Sodium 125 mg Sprinkle Capsule PO SCH ×2 (08:53→19:50)
[2020-09-22] MEDS: Dexamethasone 4 mg/ml Vial SLOW IVP SCH (08:53)
[2020-09-22] MEDS: PARoxetine 20 MG TAB PO SCH (08:53)
[2020-09-22] MEDS: Cyanocobalamin (Vitamin B-12) 1,000 MCG TAB PO SCH (08:53)
[2020-09-22] MEDS: Heparin 5,000 UNITS/ML VIAL SC SCH ×3 (08:54→19:51)
[2020-09-22] MEDS: Polyethylene Glycol 3350 17 GM Packet PO SCH (08:54)
[2020-09-22] MEDS: Dorzolamide HCl 2% Ophth Soln 10 ml Bottle EA EYE SCH ×2 (08:54→19:51)
[2020-09-22] MEDS: Insulin Glargine 20 UNITS in Pre-Filled Syringe 1 EACH SC SCH (19:49)
[2020-09-23] MEDS: Insulin Regular 300 UNITS/3 ML VIAL SC PRN ×5 (01:00→20:43)
[2020-09-23] MEDS: Sodium Chloride 0.45% 1,000 ML IV SCH ×2 (02:57→18:52)
[2020-09-23 04:09] LABS: #Basophils 0.1 thou/uL (0.0-0.2); #Eosinphils 0.1 thou/uL (0.0-0.7); #Lymphocytes 3.7 thou/uL (1.20-3.40); #Monocytes 1.4 thou/uL (0.11-0.59); #Neutrophils 12.8 thou/uL (1.40-6.50); %Basophils 0.5 % (0.0-1.0); %Eosinophils 0.7 % (0.0-10.0); %Lymphocytes 20.2 % (21.0-51.0); %Monocytes 7.9 % (0.0-10.0); %Neutrophils 70.6 % (42.0-75.0); Mean Corpuscular HGB CONC 31.7 g/dL (32.0-36.0); Mean Corpuscular Hemoglobin 31.4 pg (27.0-31.0); Mean Corpuscular Volume 99.2 fL (78.0-98.0); Mean Platelet Volume 11.2 fL (7.4-10.4); Platelet Count 245 thou/uL (130-400); RBC Distribution Width 14.9 % (11.5-14.5); White Blood Cell (WBC) Count 18.1 thou/uL (4.8-10.8)
[2020-09-23 04:36] LABS: Anion Gap 14 mmol/L (10-20); BUN (Urea Nitrogen) 30 mg/dL (9.8-20.1); Calc. Creatinine Clearance 181 mL/min (70-130); Calcium 8.4 mg/dL (7.8-10.44); Carbon Dioxide 25 mmol/L (22-29); Chloride 103 mmol/L (98-107); Glucose 176 mg/dL (70-105); Potassium 3.6 mmol/L (3.5-5.1); Sodium 138 mmol/L (136-145)
[2020-09-23] MEDS: Levothyroxine Sodium 25 MCG TAB PO SCH (04:42)
[2020-09-23] MEDS: Colchicine 0.6 MG TAB PER TUBE SCH ×2 (09:13→20:14)
[2020-09-23] MEDS: Cyanocobalamin (Vitamin B-12) 1,000 MCG TAB PO SCH (09:13)
[2020-09-23] MEDS: Aspirin Chewable 81 MG TAB PO SCH (09:13)
[2020-09-23] MEDS: Pantoprazole 40 MG GRANULES PACKET PER TUBE SCH (09:14)
[2020-09-23] MEDS: busPIRone HCl 5 MG TAB PO SCH ×2 (09:14→20:14)
[2020-09-23] MEDS: Divalproex Sodium 125 mg Sprinkle Capsule PO SCH ×2 (09:14→20:13)
[2020-09-23] MEDS: PARoxetine 20 MG TAB PO SCH (09:14)
[2020-09-23] MEDS: Heparin 5,000 UNITS/ML VIAL SC SCH ×3 (09:14→20:15)
[2020-09-23] MEDS: Dorzolamide HCl 2% Ophth Soln 10 ml Bottle EA EYE SCH ×2 (09:14→20:14)
[2020-09-23] MEDS: Dexamethasone 4 mg/ml Vial SLOW IVP SCH (09:15)
[2020-09-23] MEDS: Polyethylene Glycol 3350 17 GM Packet PO SCH (09:15)
[2020-09-23] MEDS: Insulin Glargine 20 UNITS in Pre-Filled Syringe 1 EACH SC SCH (20:13)
[2020-09-24] MEDS: Insulin Regular 300 UNITS/3 ML VIAL SC PRN ×4 (01:27→20:11)
[2020-09-24 02:48] LABS: #Eosinphils 0.1 thou/uL (0.0-0.7); #Monocytes 1.2 thou/uL (0.11-0.59); #Neutrophils 15.4 thou/uL (1.40-6.50); %Eosinophils 0.4 % (0.0-10.0); %Lymphocytes 15.4 % (21.0-51.0); %Neutrophils 78.2 % (42.0-75.0); Hemoglobin 12.3 g/dL (12.0-16.0); Mean Corpuscular HGB CONC 32.1 g/dL (32.0-36.0); Mean Corpuscular Hemoglobin 31.7 pg (27.0-31.0); Mean Platelet Volume 10.7 fL (7.4-10.4); Platelet Count 243 thou/uL (130-400); RBC Distribution Width 14.8 % (11.5-14.5); Red Blood Cell (RBC) Count 3.89 mill/uL (4.20-5.40); White Blood Cell (WBC) Count 19.7 thou/uL (4.8-10.8)
[2020-09-24 03:17] LABS: Anion Gap 14 mmol/L (10-20); BUN (Urea Nitrogen) 31 mg/dL (9.8-20.1); Calc. Creatinine Clearance 184 mL/min (70-130); Calcium 8.9 mg/dL (7.8-10.44); Carbon Dioxide 23 mmol/L (22-29); Chloride 103 mmol/L (98-107); Glucose 209 mg/dL (70-105); Magnesium 2.3 mg/dL (1.6-2.6); Phosphorus 3.1 mg/dL (2.3-4.7); Sodium 136 mmol/L (136-145)
[2020-09-24] MEDS: Levothyroxine Sodium 25 MCG TAB PO SCH (05:15)
[2020-09-24] MEDS: Sodium Chloride 0.45% 1,000 ML IV SCH ×2 (06:04→19:33)
[2020-09-24] MEDS: busPIRone HCl 5 MG TAB PO SCH ×2 (08:43→19:35)
[2020-09-24] MEDS: Aspirin Chewable 81 MG TAB PO SCH (08:43)
[2020-09-24] MEDS: Divalproex Sodium 125 mg Sprinkle Capsule PO SCH ×2 (08:44→19:35)
[2020-09-24] MEDS: PARoxetine 20 MG TAB PO SCH (08:44)
[2020-09-24] MEDS: Dorzolamide HCl 2% Ophth Soln 10 ml Bottle EA EYE SCH ×2 (08:44→19:35)
[2020-09-24] MEDS: Heparin 5,000 UNITS/ML VIAL SC SCH ×3 (08:44→19:34)
[2020-09-24] MEDS: Pantoprazole 40 MG GRANULES PACKET PER TUBE SCH (08:44)
[2020-09-24] MEDS: Cyanocobalamin (Vitamin B-12) 1,000 MCG TAB PO SCH (08:44)
[2020-09-24] MEDS: Polyethylene Glycol 3350 17 GM Packet PO SCH (08:45)
[2020-09-24] MEDS: Dexamethasone 4 mg/ml Vial SLOW IVP SCH (08:45)
[2020-09-24] MEDS ORDERED: Magnesium 5 GM/10 ML Abboject SYRINGE ONE (14:51)
[2020-09-24] MEDS: Colchicine 0.6 MG TAB PER TUBE SCH (19:34)
[2020-09-24] MEDS: Insulin Glargine 20 UNITS in Pre-Filled Syringe 1 EACH SC SCH (20:13)
[2020-09-25] MEDS: Insulin Regular 300 UNITS/3 ML VIAL SC PRN ×6 (00:19→23:46)
[2020-09-25 05:10] LABS: #Basophils 0.1 thou/uL (0.0-0.2); #Eosinphils 0.3 thou/uL (0.0-0.7); #Lymphocytes 3.6 thou/uL (1.20-3.40); #Monocytes 0.8 thou/uL (0.11-0.59); #Neutrophils 9.6 thou/uL (1.40-6.50); %Basophils 0.6 % (0.0-1.0); %Eosinophils 2.1 % (0.0-10.0); %Lymphocytes 24.8 % (21.0-51.0); %Monocytes 5.6 % (0.0-10.0); %Neutrophils 66.8 % (42.0-75.0); Hemoglobin 11.6 g/dL (12.0-16.0); Mean Corpuscular Hemoglobin 32.1 pg (27.0-31.0); Mean Platelet Volume 11.5 fL (7.4-10.4); Platelet Count 257 thou/uL (130-400); RBC Distribution Width 14.8 % (11.5-14.5); Red Blood Cell (RBC) Count 3.61 mill/uL (4.20-5.40); White Blood Cell (WBC) Count 14.3 thou/uL (4.8-10.8)
[2020-09-25] MEDS: Levothyroxine Sodium 25 MCG TAB PO SCH (05:27)
[2020-09-25 05:32] LABS: Anion Gap 12 mmol/L (10-20); BUN (Urea Nitrogen) 28 mg/dL (9.8-20.1); Calc. Creatinine Clearance 185 mL/min (70-130); Calcium 8.6 mg/dL (7.8-10.44); Carbon Dioxide 25 mmol/L (22-29); Chloride 105 mmol/L (98-107); Glucose 229 mg/dL (70-105); Potassium 3.8 mmol/L (3.5-5.1); Sodium 138 mmol/L (136-145)
[2020-09-25 06:45] LABS: Actual Bicarbonate (HCO3a) 24.8 mEq/L (22-28); Base Excess (BEa) 1.4 mEq/L (-2.0 to +3.0); CO2 Tension 35.3 mmHg (35.0-45.0); Carboxyhemoglobin (COHb) 0.1 gm% (0.0-3.0); O2 Tension (PaO2), arterial 82.6 mmHg (80.0-100.0); Potassium - ABG Lab 3.95 mmol/L (3.70-5.30); pH, Arterial 7.46 (7.35-7.45)
[2020-09-25 06:46] LABS: Puncture Site LRA
[2020-09-25 06:47] LABS: ALV-art Gradient 158.475 mmHg (0-20)
[2020-09-25] MEDS: Dexamethasone 4 mg/ml Vial SLOW IVP SCH (08:53)
[2020-09-25] MEDS: Pantoprazole 40 MG VIAL IVP SCH (08:53)
[2020-09-25] MEDS: Cyanocobalamin (Vitamin B-12) 1,000 MCG TAB PO SCH (08:54)
[2020-09-25] MEDS: Colchicine 0.6 MG TAB PER TUBE SCH ×2 (08:54→20:48)
[2020-09-25] MEDS: Heparin 5,000 UNITS/ML VIAL SC SCH ×3 (08:54→20:48)
[2020-09-25] MEDS: Divalproex Sodium 125 mg Sprinkle Capsule PO SCH ×2 (08:54→20:48)
[2020-09-25] MEDS: Aspirin Chewable 81 MG TAB PO SCH (08:55)
[2020-09-25] MEDS: busPIRone HCl 5 MG TAB PO SCH ×2 (08:55→20:48)
[2020-09-25] MEDS: PARoxetine 20 MG TAB PO SCH (08:55)
[2020-09-25] MEDS: Sodium Chloride 0.45% 1,000 ML IV SCH ×2 (09:56→22:05)
[2020-09-25] MEDS: Polyethylene Glycol 3350 17 GM Packet PO SCH (10:23)
[2020-09-25] MEDS: Dorzolamide HCl 2% Ophth Soln 10 ml Bottle EA EYE SCH ×2 (10:24→20:48)
[2020-09-25] MEDS: Insulin Glargine 20 UNITS in Pre-Filled Syringe 1 EACH SC SCH (20:49)
[2020-09-26 02:25] LABS: #Eosinphils 0.2 thou/uL (0.0-0.7); #Lymphocytes 2.7 thou/uL (1.20-3.40); #Monocytes 0.8 thou/uL (0.11-0.59); #Neutrophils 11.4 thou/uL (1.40-6.50); %Basophils 0.3 % (0.0-1.0); %Eosinophils 1.2 % (0.0-10.0); %Lymphocytes 18.1 % (21.0-51.0); %Monocytes 5.1 % (0.0-10.0); %Neutrophils 75.4 % (42.0-75.0); Mean Corpuscular HGB CONC 31.9 g/dL (32.0-36.0); Mean Corpuscular Hemoglobin 32.1 pg (27.0-31.0); Mean Platelet Volume 10.6 fL (7.4-10.4); Platelet Count 277 thou/uL (130-400); RBC Distribution Width 14.7 % (11.5-14.5); Red Blood Cell (RBC) Count 3.42 mill/uL (4.20-5.40); White Blood Cell (WBC) Count 15.2 thou/uL (4.8-10.8)
[2020-09-26 02:50] LABS: Anion Gap 13 mmol/L (10-20); BUN (Urea Nitrogen) 30 mg/dL (9.8-20.1); Calc. Creatinine Clearance 173 mL/min (70-130); Calcium 8.5 mg/dL (7.8-10.44); Carbon Dioxide 23 mmol/L (22-29); Chloride 105 mmol/L (98-107); Glucose 187 mg/dL (70-105); Sodium 137 mmol/L (136-145)
[2020-09-26 02:58] LABS: Magnesium 1.7 mg/dL (1.6-2.6); Phosphorus 3.1 mg/dL (2.3-4.7)
[2020-09-26] MEDS ORDERED: Magnesium 2 GM/50 ML 2 GM in Premix Bag 1 BAG IVPB SCH (03:30)
[2020-09-26] MEDS: Insulin Regular 300 UNITS/3 ML VIAL SC PRN ×2 (04:57→16:25)
[2020-09-26] MEDS: Levothyroxine Sodium 25 MCG TAB PO SCH (05:15)
[2020-09-26] MEDS: busPIRone HCl 5 MG TAB PO SCH ×2 (08:50→20:45)
[2020-09-26] MEDS: Pantoprazole 40 MG VIAL IVP SCH (08:50)
[2020-09-26] MEDS: Dexamethasone 4 mg/ml Vial SLOW IVP SCH (08:50)
[2020-09-26] MEDS: PARoxetine 20 MG TAB PO SCH (08:50)
[2020-09-26] MEDS: Heparin 5,000 UNITS/ML VIAL SC SCH ×3 (08:50→20:42)
[2020-09-26] MEDS: Colchicine 0.6 MG TAB PER TUBE SCH ×2 (08:50→20:46)
[2020-09-26] MEDS: Aspirin Chewable 81 MG TAB PO SCH (08:50)
[2020-09-26] MEDS: Divalproex Sodium 125 mg Sprinkle Capsule PO SCH ×2 (08:51→20:46)
[2020-09-26] MEDS: Cyanocobalamin (Vitamin B-12) 1,000 MCG TAB PO SCH (08:51)
[2020-09-26] MEDS: Polyethylene Glycol 3350 17 GM Packet PO SCH (08:52)
[2020-09-26] MEDS: Dorzolamide HCl 2% Ophth Soln 10 ml Bottle EA EYE SCH ×2 (08:52→21:26)
[2020-09-26] MEDS ORDERED: Ventilator Sedation Protocol 1 EACH FS ONE (09:52)
[2020-09-26] MEDS ORDERED: Morphine 2 MG/ML VIAL SLOW IVP PRN (10:45)
[2020-09-26] MEDS ORDERED: DISCONTINUE PREVIOUS NARCOTIC PAIN MEDICATIONS AND BENZODIAZEPINES FS SCH (10:45)
[2020-09-26] MEDS ORDERED: Succinylcholine Chloride 200 MG/10 ML VIAL IVP SCH (10:45)
[2020-09-26] MEDS ORDERED: Fentanyl BOLUS 250 ML IVPB PRN (10:45)
[2020-09-26] MEDS ORDERED: Sodium Bicarb 50 MEQ/50 ML Abboject 8.4% SYRINGE IVP SCH (10:45)
[2020-09-26] MEDS ORDERED: Propofol 1,000 MG/100 ML VIAL IV PRN (10:45)
[2020-09-26] MEDS ORDERED: Propofol BOLUS 1,000 MG/100 ML VIAL IV PRN (10:45)
[2020-09-26] MEDS ORDERED: Lorazepam 2 MG/ML VIAL SLOW IVP PRN (10:45)
[2020-09-26] MEDS ORDERED: Fentanyl CADD 100 ML IV SCH (10:45)
[2020-09-26] MEDS: Sodium Chloride 0.45% 1,000 ML IV SCH (11:14)
[2020-09-26] MEDS: Propofol 1,000 MG/100 ML VIAL IV PRN ×2 (11:27→15:47)
[2020-09-26] MEDS: Insulin Glargine 20 UNITS in Pre-Filled Syringe 1 EACH SC SCH (20:49)
[2020-09-27] MEDS: Propofol 1,000 MG/100 ML VIAL IV PRN (03:55)
[2020-09-27] MEDS: Sodium Chloride 0.45% 1,000 ML IV SCH ×2 (03:55→16:52)
[2020-09-27 05:05] LABS: Anion Gap 12 mmol/L (10-20); BUN (Urea Nitrogen) 26 mg/dL (9.8-20.1); Calc. Creatinine Clearance 166 mL/min (70-130); Calcium 8.8 mg/dL (7.8-10.44); Carbon Dioxide 25 mmol/L (22-29); Chloride 106 mmol/L (98-107); Glucose 287 mg/dL (70-105); Sodium 139 mmol/L (136-145)
[2020-09-27] MEDS: Levothyroxine Sodium 25 MCG TAB PO SCH (06:28)
[2020-09-27 06:46] LABS: Hemoglobin 11.4 g/dL (12.0-16.0); Mean Corpuscular HGB CONC 31.3 g/dL (32.0-36.0); Mean Corpuscular Hemoglobin 31.1 pg (27.0-31.0); Mean Corpuscular Volume 99.5 fL (78.0-98.0); Mean Platelet Volume 11.4 fL (7.4-10.4); Platelet Count 327 thou/uL (130-400); RBC Distribution Width 14.8 % (11.5-14.5); Red Blood Cell (RBC) Count 3.67 mill/uL (4.20-5.40); White Blood Cell (WBC) Count 16.1 thou/uL (4.8-10.8)
[2020-09-27 06:47] LABS: #Eosinphils 0.1 thou/uL (0.0-0.7); #Lymphocytes 3.4 thou/uL (1.20-3.40); #Monocytes 0.8 thou/uL (0.11-0.59); #Neutrophils 11.7 thou/uL (1.40-6.50); %Basophils 0.3 % (0.0-1.0); %Eosinophils 0.9 % (0.0-10.0); %Lymphocytes 21.3 % (21.0-51.0); %Neutrophils 72.6 % (42.0-75.0); RBC Morphology Normal
[2020-09-27] MEDS ORDERED: Vecuronium 10 MG VIAL IVP SCH (07:00)
[2020-09-27] MEDS: Fentanyl 100 MCG/2 ML VIAL SLOW IVP PRN ×2 (07:15→11:25)
[2020-09-27] MEDS ORDERED: Lidocaine 1% w/Epinephrine 1:100K 20 ML VIAL IJ PRN (07:35)
[2020-09-27] MEDS ORDERED: Vecuronium 10 MG VIAL IV PRN (07:35)
[2020-09-27] MEDS ORDERED: Midazolam HCl 2 mg/2 ml Vial SLOW IVP PRN (07:36)
[2020-09-27] MEDS: Dexamethasone 4 mg/ml Vial SLOW IVP SCH (07:57)
[2020-09-27] MEDS: PARoxetine 20 MG TAB PO SCH (07:57)
[2020-09-27] MEDS: Divalproex Sodium 125 mg Sprinkle Capsule PO SCH ×2 (07:58→20:47)
[2020-09-27] MEDS: Aspirin Chewable 81 MG TAB PO SCH (07:58)
[2020-09-27] MEDS: Pantoprazole 40 MG GRANULES PACKET PO SCH (07:58)
[2020-09-27] MEDS: Colchicine 0.6 MG TAB PER TUBE SCH ×2 (07:58→20:49)
[2020-09-27] MEDS: Cyanocobalamin (Vitamin B-12) 1,000 MCG TAB PO SCH (07:58)
[2020-09-27] MEDS: busPIRone HCl 5 MG TAB PO SCH ×2 (07:58→20:49)
[2020-09-27] MEDS: Polyethylene Glycol 3350 17 GM Packet PO SCH (07:59)
[2020-09-27] MEDS: Dorzolamide HCl 2% Ophth Soln 10 ml Bottle EA EYE SCH ×2 (07:59→20:49)
[2020-09-27] MEDS: Heparin 5,000 UNITS/ML VIAL SC SCH ×3 (08:00→20:49)
[2020-09-27] MEDS ORDERED: CEFAZOLIN 2 GM in Premix Bag 1 BAG IVPB SCH (12:30)
[2020-09-27] MEDS: Insulin Regular 300 UNITS/3 ML VIAL SC PRN ×2 (16:45→20:52)
[2020-09-27] MEDS ORDERED: Insulin Glargine 24 UNITS in Pre-Filled Syringe 1 EACH SC SCH (21:00)
[2020-09-28 04:49] LABS: #Basophils 0.1 thou/uL (0.0-0.2); #Eosinphils 0.1 thou/uL (0.0-0.7); #Lymphocytes 3.4 thou/uL (1.20-3.40); #Monocytes 0.7 thou/uL (0.11-0.59); #Neutrophils 10.1 thou/uL (1.40-6.50); %Lymphocytes 23.7 % (21.0-51.0); %Neutrophils 69.4 % (42.0-75.0); Hemoglobin 11.3 g/dL (12.0-16.0); Mean Corpuscular HGB CONC 32.1 g/dL (32.0-36.0); Mean Corpuscular Hemoglobin 31.7 pg (27.0-31.0); Mean Corpuscular Volume 98.7 fL (78.0-98.0); Mean Platelet Volume 10.5 fL (7.4-10.4); Platelet Count 326 thou/uL (130-400); RBC Distribution Width 14.8 % (11.5-14.5); Red Blood Cell (RBC) Count 3.58 mill/uL (4.20-5.40); White Blood Cell (WBC) Count 14.5 thou/uL (4.8-10.8)
[2020-09-28 05:27] LABS: Anion Gap 12 mmol/L (10-20); BUN (Urea Nitrogen) 19 mg/dL (9.8-20.1); Calc. Creatinine Clearance 187 mL/min (70-130); Calcium 8.5 mg/dL (7.8-10.44); Carbon Dioxide 23 mmol/L (22-29); Chloride 107 mmol/L (98-107); Potassium 3.4 mmol/L (3.5-5.1); Sodium 139 mmol/L (136-145)
[2020-09-28 05:30] LABS: Glucose 55 mg/dL (70-105)
[2020-09-28] MEDS: Levothyroxine Sodium 25 MCG TAB PO SCH (05:44)
[2020-09-28] MEDS: Dextrose 50% Abboject 50 ML SYRINGE SLOW IVP PRN ×2 (05:44→08:29)
[2020-09-28] MEDS: Sodium Chloride 0.45% 1,000 ML IV SCH ×2 (05:49→18:30)
[2020-09-28] MEDS: Potassium Chloride 20 MEQ in Premix Bag 1 BAG IVPB SCH ×2 (08:32→10:29)
[2020-09-28] MEDS: Heparin 5,000 UNITS/ML VIAL SC SCH ×3 (08:35→20:49)
[2020-09-28] MEDS: busPIRone HCl 5 MG TAB PO SCH ×2 (08:36→20:45)
[2020-09-28] MEDS: Colchicine 0.6 MG TAB PER TUBE SCH ×2 (08:36→20:45)
[2020-09-28] MEDS: PARoxetine 20 MG TAB PO SCH (08:36)
[2020-09-28] MEDS: Aspirin Chewable 81 MG TAB PO SCH (08:36)
[2020-09-28] MEDS: Divalproex Sodium 125 mg Sprinkle Capsule PO SCH ×2 (08:36→20:45)
[2020-09-28] MEDS: Pantoprazole 40 MG GRANULES PACKET PO SCH (08:37)
[2020-09-28] MEDS: Dexamethasone 4 mg/ml Vial SLOW IVP SCH (08:39)
[2020-09-28] MEDS: Cyanocobalamin (Vitamin B-12) 1,000 MCG TAB PO SCH (08:39)
[2020-09-28] MEDS: Dorzolamide HCl 2% Ophth Soln 10 ml Bottle EA EYE SCH ×2 (08:42→20:46)
[2020-09-28] MEDS: Polyethylene Glycol 3350 17 GM Packet PO SCH (08:42)
[2020-09-28] MEDS: Insulin Regular 300 UNITS/3 ML VIAL SC PRN (12:40)
[2020-09-28 14:50] LABS: Potassium 4.6 mmol/L (3.5-5.1)
[2020-09-28] MEDS ORDERED: Insulin Glargine 24 UNITS in Pre-Filled Syringe SC SCH (21:00)
[2020-09-29 05:19] LABS: Phosphorus 2.4 mg/dL (2.3-4.7)
[2020-09-29 05:21] LABS: Anion Gap 13 mmol/L (10-20); BUN (Urea Nitrogen) 23 mg/dL (9.8-20.1); Calc. Creatinine Clearance 0 mL/min (70-130); Calcium 8.5 mg/dL (7.8-10.44); Carbon Dioxide 20 mmol/L (22-29); Chloride 107 mmol/L (98-107); Glucose 241 mg/dL (70-105); Magnesium 1.7 mg/dL (1.6-2.6); Potassium 3.7 mmol/L (3.5-5.1); Sodium 136 mmol/L (136-145)
[2020-09-29] MEDS: Levothyroxine Sodium 25 MCG TAB PO SCH (06:02)
[2020-09-29] MEDS: Insulin Regular 300 UNITS/3 ML VIAL SC PRN ×4 (06:03→21:10)
[2020-09-29 06:43] LABS: Band 2 % (5-11); Eosinophils 2 % (0-10); Hemoglobin 11.4 g/dL (12.0-16.0); Lymphocytes 27 % (21-51); MDiff Complete? YES; Mean Corpuscular HGB CONC 30.1 g/dL (32.0-36.0); Mean Corpuscular Hemoglobin 30.2 pg (27.0-31.0); Monocytes 5 % (0-10); Neutrophil 64 % (42-75); Platelet Count 326 thou/uL (130-400); RBC Distribution Width 14.6 % (11.5-14.5); Red Blood Cell (RBC) Count 3.79 mill/uL (4.20-5.40); White Blood Cell (WBC) Count 13.1 thou/uL (4.8-10.8)
[2020-09-29] MEDS: busPIRone HCl 5 MG TAB PO SCH ×2 (07:45→21:05)
[2020-09-29] MEDS: Colchicine 0.6 MG TAB PER TUBE SCH ×2 (07:45→21:06)
[2020-09-29] MEDS: Aspirin Chewable 81 MG TAB PO SCH (07:46)
[2020-09-29] MEDS: PARoxetine 20 MG TAB PO SCH (07:46)
[2020-09-29] MEDS: Pantoprazole 40 MG GRANULES PACKET PO SCH (07:46)
[2020-09-29] MEDS: Cyanocobalamin (Vitamin B-12) 1,000 MCG TAB PO SCH (07:46)
[2020-09-29] MEDS: Divalproex Sodium 125 mg Sprinkle Capsule PO SCH ×2 (07:46→21:05)
[2020-09-29] MEDS: Dorzolamide HCl 2% Ophth Soln 10 ml Bottle EA EYE SCH ×2 (07:47→21:30)
[2020-09-29] MEDS: Dexamethasone 4 mg/ml Vial SLOW IVP SCH (07:47)
[2020-09-29] MEDS: Heparin 5,000 UNITS/ML VIAL SC SCH ×3 (07:48→21:09)
[2020-09-29] MEDS: Sodium Chloride 0.45% 1,000 ML IV SCH (07:48)
[2020-09-29] MEDS ORDERED: Magnesium 2 GM/50 ML 2 GM in Premix Bag 1 BAG IVPB SCH (09:30)
[2020-09-29] MEDS: Polyethylene Glycol 3350 17 GM Packet PO SCH (10:30)
[2020-09-29] MEDS: Metamucil PACK PER TUBE SCH (10:30)
[2020-09-29] MEDS ORDERED: Furosemide 20 MG/2 ML VIAL SLOW IVP SCH (13:45)
[2020-09-29] MEDS: Insulin Glargine 24 UNITS in Pre-Filled Syringe SC SCH (21:10)
[2020-09-30] MEDS ORDERED: PARoxetine 20 MG TAB ONE (11:33)
[2020-09-30] MEDS ORDERED: busPIRone HCl 5 MG TAB ONE (11:33)
[2020-09-30] MEDS ORDERED: Divalproex Sodium 125 mg Sprinkle Capsule ONE (11:33)
[2020-09-30] MEDS ORDERED: Colchicine 0.6 MG TAB ONE (11:33)
[2020-09-30] MEDS ORDERED: Heparin 5,000 UNITS/ML VIAL ONE (11:33)
[2020-09-30] MEDS ORDERED: Cyanocobalamin (Vitamin B-12) 1,000 MCG TAB ONE (11:33)
[2020-09-30] MEDS ORDERED: Aspirin Chewable 81 MG TAB ONE (11:33)
[2020-09-30] MEDS ORDERED: Metamucil PACK ONE (11:33)
[2020-09-30] MEDS ORDERED: Polyethylene Glycol 3350 17 GM Packet ONE (11:33)
[2020-09-30] MEDS ORDERED: Pantoprazole 40 MG GRANULES PACKET ONE (11:33)
[2020-09-30] MEDS: Levothyroxine Sodium 25 MCG TAB PO SCH (14:42)
[2020-09-30] MEDS: Aspirin Chewable 81 MG TAB PO SCH (14:42)
[2020-09-30] MEDS: Dorzolamide HCl 2% Ophth Soln 10 ml Bottle EA EYE SCH ×2 (14:43→21:36)
[2020-09-30] MEDS: busPIRone HCl 5 MG TAB PO SCH ×2 (14:43→21:28)
[2020-09-30] MEDS: Colchicine 0.6 MG TAB PER TUBE SCH ×2 (14:43→21:29)
[2020-09-30] MEDS: Cyanocobalamin (Vitamin B-12) 1,000 MCG TAB PO SCH (14:43)
[2020-09-30] MEDS: Divalproex Sodium 125 mg Sprinkle Capsule PO SCH ×2 (14:43→21:29)
[2020-09-30] MEDS: Pantoprazole 40 MG GRANULES PACKET PO SCH (14:44)
[2020-09-30] MEDS: PARoxetine 20 MG TAB PO SCH (14:44)
[2020-09-30] MEDS: Heparin 5,000 UNITS/ML VIAL SC SCH ×3 (14:44→21:28)
[2020-09-30] MEDS: Insulin Glargine 24 UNITS in Pre-Filled Syringe SC SCH ×2 (14:44→20:53)
[2020-09-30] MEDS: Metamucil PACK PER TUBE SCH (14:45)
[2020-09-30] MEDS: Polyethylene Glycol 3350 17 GM Packet PO SCH (14:45)
[2020-09-30 18:43] LABS: Anion Gap 14 mmol/L (10-20); BUN (Urea Nitrogen) 28 mg/dL (9.8-20.1); Calc. Creatinine Clearance 182 mL/min (70-130); Calcium 8.8 mg/dL (7.8-10.44); Carbon Dioxide 23 mmol/L (22-29); Chloride 106 mmol/L (98-107); Glucose 124 mg/dL (70-105); Sodium 139 mmol/L (136-145)
[2020-09-30 19:35] LABS: #Basophils 0.1 thou/uL (0.0-0.2); #Eosinphils 0.5 thou/uL (0.0-0.7); #Lymphocytes 3.4 thou/uL (1.20-3.40); #Monocytes 0.8 thou/uL (0.11-0.59); #Neutrophils 6.5 thou/uL (1.40-6.50); %Basophils 0.9 % (0.0-1.0); %Eosinophils 4.1 % (0.0-10.0); %Lymphocytes 30.3 % (21.0-51.0); %Monocytes 6.9 % (0.0-10.0); %Neutrophils 57.8 % (42.0-75.0); Hemoglobin 11.5 g/dL (12.0-16.0); Mean Corpuscular HGB CONC 32.1 g/dL (32.0-36.0); Mean Corpuscular Hemoglobin 32.4 pg (27.0-31.0); Mean Platelet Volume 11.1 fL (7.4-10.4); Platelet Count 333 thou/uL (130-400); Red Blood Cell (RBC) Count 3.54 mill/uL (4.20-5.40); White Blood Cell (WBC) Count 11.2 thou/uL (4.8-10.8)
[2020-09-30] MEDS: Insulin Regular 300 UNITS/3 ML VIAL SC PRN (20:51)
[2020-10-01 05:33] LABS: Anion Gap 13 mmol/L (10-20); BUN (Urea Nitrogen) 26 mg/dL (9.8-20.1); Calc. Creatinine Clearance 193 mL/min (70-130); Calcium 8.6 mg/dL (7.8-10.44); Carbon Dioxide 25 mmol/L (22-29); Chloride 107 mmol/L (98-107); Glucose 153 mg/dL (70-105); Potassium 3.9 mmol/L (3.5-5.1); Sodium 141 mmol/L (136-145)
[2020-10-01] MEDS: Insulin Regular 300 UNITS/3 ML VIAL SC PRN ×4 (06:07→21:48)
[2020-10-01] MEDS: Levothyroxine Sodium 25 MCG TAB PO SCH (06:11)
[2020-10-01 06:36] LABS: #Basophils 0.1 thou/uL (0.0-0.2); #Eosinphils 0.6 thou/uL (0.0-0.7); #Lymphocytes 3.3 thou/uL (1.20-3.40); #Monocytes 0.8 thou/uL (0.11-0.59); #Neutrophils 7.7 thou/uL (1.40-6.50); %Basophils 0.7 % (0.0-1.0); %Eosinophils 5.1 % (0.0-10.0); %Lymphocytes 26.3 % (21.0-51.0); %Monocytes 6.1 % (0.0-10.0); %Neutrophils 61.8 % (42.0-75.0); Anisocytosis SLIGHT = 6-15 cells (100X) (0-5/hpf); Hemoglobin 11.1 g/dL (12.0-16.0); MDiff Complete? YES; Mean Corpuscular HGB CONC 31.6 g/dL (32.0-36.0); Mean Corpuscular Hemoglobin 31.9 pg (27.0-31.0); Mean Platelet Volume 10.6 fL (7.4-10.4); Platelet Count 332 thou/uL (130-400); RBC Distribution Width 14.9 % (11.5-14.5); White Blood Cell (WBC) Count 12.5 thou/uL (4.8-10.8)
[2020-10-01] MEDS: Aspirin Chewable 81 MG TAB PO SCH (08:59)
[2020-10-01] MEDS: Divalproex Sodium 125 mg Sprinkle Capsule PO SCH ×2 (08:59→21:46)
[2020-10-01] MEDS: Colchicine 0.6 MG TAB PER TUBE SCH ×2 (08:59→21:48)
[2020-10-01] MEDS: busPIRone HCl 5 MG TAB PO SCH ×2 (08:59→21:48)
[2020-10-01] MEDS: Cyanocobalamin (Vitamin B-12) 1,000 MCG TAB PO SCH (08:59)
[2020-10-01] MEDS: PARoxetine 20 MG TAB PO SCH (09:00)
[2020-10-01] MEDS: Pantoprazole 40 MG GRANULES PACKET PO SCH (09:00)
[2020-10-01] MEDS: Heparin 5,000 UNITS/ML VIAL SC SCH ×3 (09:00→21:46)
[2020-10-01] MEDS: Insulin Glargine 24 UNITS in Pre-Filled Syringe SC SCH ×2 (09:00→21:47)
[2020-10-01] MEDS: Dorzolamide HCl 2% Ophth Soln 10 ml Bottle EA EYE SCH ×2 (09:00→21:55)
[2020-10-01] MEDS: Polyethylene Glycol 3350 17 GM Packet PO SCH (09:01)
[2020-10-01] MEDS: Metamucil PACK PER TUBE SCH (09:01)
[2020-10-01] MEDS: Scopolamine 1.5 mg/72 hour Patch TD SCH (11:08)
[2020-10-02] MEDS: Insulin Regular 300 UNITS/3 ML VIAL SC PRN ×6 (00:29→20:40)
[2020-10-02 04:22] LABS: #Basophils 0.1 thou/uL (0.0-0.2); #Eosinphils 0.7 thou/uL (0.0-0.7); #Monocytes 0.6 thou/uL (0.11-0.59); #Neutrophils 6.6 thou/uL (1.40-6.50); %Basophils 0.6 % (0.0-1.0); %Eosinophils 6.3 % (0.0-10.0); %Lymphocytes 27.5 % (21.0-51.0); %Monocytes 5.6 % (0.0-10.0); %Neutrophils 59.9 % (42.0-75.0); Hemoglobin 11.1 g/dL (12.0-16.0); Mean Corpuscular HGB CONC 32.6 g/dL (32.0-36.0); Mean Corpuscular Hemoglobin 33.2 pg (27.0-31.0); Mean Platelet Volume 10.1 fL (7.4-10.4); Platelet Count 300 thou/uL (130-400); RBC Distribution Width 14.9 % (11.5-14.5); Red Blood Cell (RBC) Count 3.33 mill/uL (4.20-5.40); White Blood Cell (WBC) Count 10.9 thou/uL (4.8-10.8)
[2020-10-02 04:42] LABS: Anion Gap 12 mmol/L (10-20); BUN (Urea Nitrogen) 25 mg/dL (9.8-20.1); Calc. Creatinine Clearance 180 mL/min (70-130); Calcium 8.5 mg/dL (7.8-10.44); Carbon Dioxide 26 mmol/L (22-29); Chloride 106 mmol/L (98-107); Glucose 219 mg/dL (70-105); Sodium 140 mmol/L (136-145)
[2020-10-02] MEDS: Levothyroxine Sodium 25 MCG TAB PO SCH (06:44)
[2020-10-02] MEDS: Colchicine 0.6 MG TAB PER TUBE SCH (09:02)
[2020-10-02] MEDS: Aspirin Chewable 81 MG TAB PO SCH (09:02)
[2020-10-02] MEDS: Divalproex Sodium 125 mg Sprinkle Capsule PO SCH ×2 (09:02→21:54)
[2020-10-02] MEDS: busPIRone HCl 5 MG TAB PO SCH ×2 (09:02→22:27)
[2020-10-02] MEDS: Cyanocobalamin (Vitamin B-12) 1,000 MCG TAB PO SCH (09:02)
[2020-10-02] MEDS: PARoxetine 20 MG TAB PO SCH (09:03)
[2020-10-02] MEDS: Insulin Glargine 24 UNITS in Pre-Filled Syringe SC SCH ×2 (09:03→21:56)
[2020-10-02] MEDS: Dorzolamide HCl 2% Ophth Soln 10 ml Bottle EA EYE SCH ×2 (09:03→21:55)
[2020-10-02] MEDS: Pantoprazole 40 MG GRANULES PACKET PO SCH (09:03)
[2020-10-02] MEDS: Heparin 5,000 UNITS/ML VIAL SC SCH ×3 (09:03→21:54)
[2020-10-02] MEDS: Metamucil PACK PER TUBE SCH (09:04)
[2020-10-02] MEDS: Polyethylene Glycol 3350 17 GM Packet PO SCH (09:20)
[2020-10-03] MEDS: Insulin Regular 300 UNITS/3 ML VIAL SC PRN ×6 (00:47→21:51)
[2020-10-03 03:55] LABS: #Basophils 0.1 thou/uL (0.0-0.2); #Eosinphils 0.6 thou/uL (0.0-0.7); #Lymphocytes 2.7 thou/uL (1.20-3.40); #Monocytes 0.6 thou/uL (0.11-0.59); #Neutrophils 5.6 thou/uL (1.40-6.50); %Basophils 0.7 % (0.0-1.0); %Eosinophils 6.2 % (0.0-10.0); %Lymphocytes 28.7 % (21.0-51.0); %Monocytes 5.9 % (0.0-10.0); %Neutrophils 58.5 % (42.0-75.0); Mean Corpuscular HGB CONC 32.7 g/dL (32.0-36.0); Mean Corpuscular Hemoglobin 32.7 pg (27.0-31.0); Mean Platelet Volume 10.1 fL (7.4-10.4); Platelet Count 292 thou/uL (130-400); RBC Distribution Width 14.7 % (11.5-14.5); Red Blood Cell (RBC) Count 3.37 mill/uL (4.20-5.40); White Blood Cell (WBC) Count 9.5 thou/uL (4.8-10.8)
[2020-10-03 04:11] LABS: Anion Gap 12 mmol/L (10-20); BUN (Urea Nitrogen) 25 mg/dL (9.8-20.1); Calc. Creatinine Clearance 0 mL/min (70-130); Calcium 8.7 mg/dL (7.8-10.44); Carbon Dioxide 25 mmol/L (22-29); Chloride 106 mmol/L (98-107); Glucose 271 mg/dL (70-105); Potassium 3.7 mmol/L (3.5-5.1); Sodium 139 mmol/L (136-145)
[2020-10-03] MEDS: Levothyroxine Sodium 25 MCG TAB PO SCH (06:08)
[2020-10-03] MEDS ORDERED: Magnesium 2 GM/50 ML BAG (IN WATER) ONE (06:18)
[2020-10-03] MEDS: Aspirin Chewable 81 MG TAB PO SCH (09:07)
[2020-10-03] MEDS: Metamucil PACK PER TUBE SCH (09:07)
[2020-10-03] MEDS: Divalproex Sodium 125 mg Sprinkle Capsule PO SCH ×2 (09:07→21:51)
[2020-10-03] MEDS: PARoxetine 20 MG TAB PO SCH (09:07)
[2020-10-03] MEDS: Insulin Glargine 24 UNITS in Pre-Filled Syringe SC SCH ×2 (09:07→21:50)
[2020-10-03] MEDS: Cyanocobalamin (Vitamin B-12) 1,000 MCG TAB PO SCH (09:07)
[2020-10-03] MEDS: Amlodipine 5 MG TAB PO SCH (09:07)
[2020-10-03] MEDS: Heparin 5,000 UNITS/ML VIAL SC SCH ×3 (09:07→21:50)
[2020-10-03] MEDS: Polyethylene Glycol 3350 17 GM Packet PO SCH (09:09)
[2020-10-03] MEDS: Dorzolamide HCl 2% Ophth Soln 10 ml Bottle EA EYE SCH ×2 (09:10→21:55)
[2020-10-03] MEDS: Pantoprazole 40 MG GRANULES PACKET PO SCH (13:20)
[2020-10-03] MEDS: busPIRone HCl 5 MG TAB PO SCH ×2 (13:20→21:51)
[2020-10-04] MEDS: Insulin Regular 300 UNITS/3 ML VIAL SC PRN ×5 (00:24→21:59)
[2020-10-04 03:50] LABS: #Basophils 0.1 thou/uL (0.0-0.2); #Eosinphils 0.6 thou/uL (0.0-0.7); #Lymphocytes 2.7 thou/uL (1.20-3.40); #Monocytes 0.7 thou/uL (0.11-0.59); %Basophils 0.6 % (0.0-1.0); %Eosinophils 5.9 % (0.0-10.0); %Lymphocytes 26.9 % (21.0-51.0); %Monocytes 7.2 % (0.0-10.0); %Neutrophils 59.4 % (42.0-75.0); Hemoglobin 10.3 g/dL (12.0-16.0); Mean Corpuscular HGB CONC 32.1 g/dL (32.0-36.0); Mean Corpuscular Hemoglobin 32.2 pg (27.0-31.0); Mean Platelet Volume 10.1 fL (7.4-10.4); Platelet Count 244 thou/uL (130-400); RBC Distribution Width 14.8 % (11.5-14.5); Red Blood Cell (RBC) Count 3.21 mill/uL (4.20-5.40); White Blood Cell (WBC) Count 10.1 thou/uL (4.8-10.8)
[2020-10-04 04:13] LABS: Anion Gap 15 mmol/L (10-20); BUN (Urea Nitrogen) 25 mg/dL (9.8-20.1); Calc. Creatinine Clearance 186 mL/min (70-130); Calcium 8.6 mg/dL (7.8-10.44); Carbon Dioxide 23 mmol/L (22-29); Chloride 104 mmol/L (98-107); Glucose 237 mg/dL (70-105); Potassium 3.7 mmol/L (3.5-5.1); Sodium 138 mmol/L (136-145)
[2020-10-04] MEDS: Levothyroxine Sodium 25 MCG TAB PO SCH (05:39)
[2020-10-04] MEDS: Insulin Glargine 30 UNITS in Pre-Filled Syringe 1 EACH SC SCH (10:18)
[2020-10-04] MEDS: Metamucil PACK PER TUBE SCH (10:18)
[2020-10-04] MEDS: Aspirin Chewable 81 MG TAB PO SCH (10:18)
[2020-10-04] MEDS: Heparin 5,000 UNITS/ML VIAL SC SCH ×3 (10:19→21:56)
[2020-10-04] MEDS: Amlodipine 5 MG TAB PO SCH (10:19)
[2020-10-04] MEDS: Pantoprazole 40 MG GRANULES PACKET PO SCH (10:19)
[2020-10-04] MEDS: busPIRone HCl 5 MG TAB PO SCH ×2 (10:19→21:58)
[2020-10-04] MEDS: PARoxetine 20 MG TAB PO SCH (10:19)
[2020-10-04] MEDS: Polyethylene Glycol 3350 17 GM Packet PO SCH (10:20)
[2020-10-04] MEDS: Dorzolamide HCl 2% Ophth Soln 10 ml Bottle EA EYE SCH ×2 (10:20→22:03)
[2020-10-04] MEDS: Divalproex Sodium 125 mg Sprinkle Capsule PO SCH ×2 (10:21→21:58)
[2020-10-04] MEDS: Cyanocobalamin (Vitamin B-12) 1,000 MCG TAB PO SCH (10:21)
[2020-10-04] MEDS ORDERED: Magnesium 2 GM/50 ML 2 GM in Premix Bag 1 BAG IVPB SCH (11:15)
[2020-10-04] MEDS: Scopolamine 1.5 mg/72 hour Patch TD SCH (13:40)
[2020-10-04] MEDS: Insulin Glargine 26 UNITS in Pre-Filled Syringe 1 EACH SC SCH (21:57)
[2020-10-05] MEDS: Insulin Regular 300 UNITS/3 ML VIAL SC PRN ×6 (00:51→21:36)
[2020-10-05 03:33] LABS: #Basophils 0.1 thou/uL (0.0-0.2); #Eosinphils 0.4 thou/uL (0.0-0.7); #Lymphocytes 2.6 thou/uL (1.20-3.40); #Monocytes 0.7 thou/uL (0.11-0.59); #Neutrophils 5.1 thou/uL (1.40-6.50); %Basophils 0.7 % (0.0-1.0); %Eosinophils 5.1 % (0.0-10.0); %Lymphocytes 28.7 % (21.0-51.0); %Monocytes 8.1 % (0.0-10.0); %Neutrophils 57.4 % (42.0-75.0); Hemoglobin 10.2 g/dL (12.0-16.0); Mean Corpuscular Hemoglobin 32.1 pg (27.0-31.0); Mean Platelet Volume 10.3 fL (7.4-10.4); Platelet Count 241 thou/uL (130-400); RBC Distribution Width 14.9 % (11.5-14.5); Red Blood Cell (RBC) Count 3.18 mill/uL (4.20-5.40); White Blood Cell (WBC) Count 8.9 thou/uL (4.8-10.8)
[2020-10-05 03:57] LABS: Anion Gap 14 mmol/L (10-20); BUN (Urea Nitrogen) 24 mg/dL (9.8-20.1); Calc. Creatinine Clearance 176 mL/min (70-130); Calcium 8.8 mg/dL (7.8-10.44); Carbon Dioxide 26 mmol/L (22-29); Chloride 104 mmol/L (98-107); Glucose 259 mg/dL (70-105); Potassium 3.6 mmol/L (3.5-5.1); Sodium 140 mmol/L (136-145)
[2020-10-05] MEDS: Levothyroxine Sodium 25 MCG TAB PO SCH (05:50)
[2020-10-05] MEDS ORDERED: Magnesium 2 GM/50 ML 2 GM in Premix Bag 1 BAG IVPB SCH (07:30)
[2020-10-05] MEDS: Heparin 5,000 UNITS/ML VIAL SC SCH ×3 (09:35→21:40)
[2020-10-05] MEDS: Aspirin Chewable 81 MG TAB PO SCH (09:35)
[2020-10-05] MEDS: PARoxetine 20 MG TAB PO SCH (09:35)
[2020-10-05] MEDS: Amlodipine 5 MG TAB PO SCH (09:35)
[2020-10-05] MEDS: busPIRone HCl 5 MG TAB PO SCH ×2 (09:36→21:41)
[2020-10-05] MEDS: Cyanocobalamin (Vitamin B-12) 1,000 MCG TAB PO SCH (09:36)
[2020-10-05] MEDS: Insulin Glargine 30 UNITS in Pre-Filled Syringe 1 EACH SC SCH (09:36)
[2020-10-05] MEDS: Divalproex Sodium 125 mg Sprinkle Capsule PO SCH ×2 (09:36→21:40)
[2020-10-05] MEDS: Metamucil PACK PER TUBE SCH (09:36)
[2020-10-05] MEDS: Polyethylene Glycol 3350 17 GM Packet PO SCH (09:38)
[2020-10-05] MEDS: Dorzolamide HCl 2% Ophth Soln 10 ml Bottle EA EYE SCH ×2 (09:38→21:47)
[2020-10-05] MEDS: Pantoprazole 40 MG GRANULES PACKET PO SCH (09:38)
[2020-10-05] MEDS: Insulin Glargine 26 UNITS in Pre-Filled Syringe 1 EACH SC SCH (21:39)
[2020-10-06] MEDS: Insulin Regular 300 UNITS/3 ML VIAL SC PRN ×6 (00:55→22:14)
[2020-10-06 03:38] LABS: #Basophils 0.1 thou/uL (0.0-0.2); #Eosinphils 0.5 thou/uL (0.0-0.7); #Lymphocytes 2.3 thou/uL (1.20-3.40); #Neutrophils 4.9 thou/uL (1.40-6.50); %Basophils 0.8 % (0.0-1.0); %Eosinophils 5.5 % (0.0-10.0); %Lymphocytes 25.9 % (21.0-51.0); %Monocytes 11.4 % (0.0-10.0); %Neutrophils 56.4 % (42.0-75.0); Mean Corpuscular Hemoglobin 32.4 pg (27.0-31.0); Mean Platelet Volume 10.3 fL (7.4-10.4); Platelet Count 213 thou/uL (130-400); RBC Distribution Width 14.7 % (11.5-14.5); White Blood Cell (WBC) Count 8.7 thou/uL (4.8-10.8)
[2020-10-06 03:58] LABS: Anion Gap 14 mmol/L (10-20); BUN (Urea Nitrogen) 22 mg/dL (9.8-20.1); Calc. Creatinine Clearance 186 mL/min (70-130); Calcium 8.8 mg/dL (7.8-10.44); Carbon Dioxide 24 mmol/L (22-29); Chloride 104 mmol/L (98-107); Glucose 308 mg/dL (70-105); Potassium 3.7 mmol/L (3.5-5.1); Sodium 138 mmol/L (136-145)
[2020-10-06] MEDS: Levothyroxine Sodium 25 MCG TAB PO SCH (05:44)
[2020-10-06] MEDS: Divalproex Sodium 125 mg Sprinkle Capsule PO SCH ×2 (09:53→20:34)
[2020-10-06] MEDS: Aspirin Chewable 81 MG TAB PO SCH (09:53)
[2020-10-06] MEDS: Amlodipine 5 MG TAB PO SCH (09:53)
[2020-10-06] MEDS: busPIRone HCl 5 MG TAB PO SCH ×2 (09:53→20:35)
[2020-10-06] MEDS: Heparin 5,000 UNITS/ML VIAL SC SCH ×3 (09:53→20:36)
[2020-10-06] MEDS: PARoxetine 20 MG TAB PO SCH (09:53)
[2020-10-06] MEDS: Insulin Glargine 30 UNITS in Pre-Filled Syringe 1 EACH SC SCH (09:53)
[2020-10-06] MEDS: Pantoprazole 40 MG GRANULES PACKET PO SCH (09:53)
[2020-10-06] MEDS: Cyanocobalamin (Vitamin B-12) 1,000 MCG TAB PO SCH (09:54)
[2020-10-06] MEDS: Metamucil PACK PER TUBE SCH (09:54)
[2020-10-06] MEDS: Polyethylene Glycol 3350 17 GM Packet PO SCH (09:54)
[2020-10-06] MEDS: Dorzolamide HCl 2% Ophth Soln 10 ml Bottle EA EYE SCH ×2 (09:55→21:07)
[2020-10-06] MEDS: Insulin Glargine 26 UNITS in Pre-Filled Syringe 1 EACH SC SCH (20:35)
[2020-10-07] MEDS: Insulin Regular 300 UNITS/3 ML VIAL SC PRN ×6 (00:19→21:35)
[2020-10-07 03:48] LABS: #Basophils 0.1 thou/uL (0.0-0.2); #Eosinphils 0.4 thou/uL (0.0-0.7); #Lymphocytes 2.7 thou/uL (1.20-3.40); #Monocytes 0.9 thou/uL (0.11-0.59); #Neutrophils 4.6 thou/uL (1.40-6.50); %Basophils 0.7 % (0.0-1.0); %Lymphocytes 30.9 % (21.0-51.0); %Monocytes 10.1 % (0.0-10.0); %Neutrophils 53.2 % (42.0-75.0); Hemoglobin 10.5 g/dL (12.0-16.0); Mean Corpuscular HGB CONC 32.6 g/dL (32.0-36.0); Mean Corpuscular Hemoglobin 32.7 pg (27.0-31.0); Platelet Count 206 thou/uL (130-400); RBC Distribution Width 14.7 % (11.5-14.5); Red Blood Cell (RBC) Count 3.21 mill/uL (4.20-5.40); White Blood Cell (WBC) Count 8.6 thou/uL (4.8-10.8)
[2020-10-07 04:09] LABS: Anion Gap 16 mmol/L (10-20); BUN (Urea Nitrogen) 25 mg/dL (9.8-20.1); Calc. Creatinine Clearance 193 mL/min (70-130); Calcium 8.8 mg/dL (7.8-10.44); Carbon Dioxide 23 mmol/L (22-29); Chloride 104 mmol/L (98-107); Glucose 200 mg/dL (70-105); Potassium 3.8 mmol/L (3.5-5.1); Sodium 139 mmol/L (136-145)
[2020-10-07] MEDS: Levothyroxine Sodium 25 MCG TAB PO SCH (05:57)
[2020-10-07] MEDS ORDERED: predniSONE 20 MG TAB PO SCH (09:00)
[2020-10-07] MEDS: Divalproex Sodium 125 mg Sprinkle Capsule PO SCH ×2 (09:24→21:33)
[2020-10-07] MEDS: Insulin Glargine 35 UNITS in Pre-Filled Syringe SC SCH (09:24)
[2020-10-07] MEDS: Metamucil PACK PER TUBE SCH (09:24)
[2020-10-07] MEDS: Polyethylene Glycol 3350 17 GM Packet PO SCH (09:24)
[2020-10-07] MEDS: Pantoprazole 40 MG GRANULES PACKET PO SCH (09:25)
[2020-10-07] MEDS: Heparin 5,000 UNITS/ML VIAL SC SCH ×3 (09:25→21:34)
[2020-10-07] MEDS: predniSONE 5 MG TAB PO SCH (09:25)
[2020-10-07] MEDS: Cyanocobalamin (Vitamin B-12) 1,000 MCG TAB PO SCH (09:25)
[2020-10-07] MEDS: Aspirin Chewable 81 MG TAB PO SCH (09:25)
[2020-10-07] MEDS: PARoxetine 20 MG TAB PO SCH (09:25)
[2020-10-07] MEDS: Amlodipine 5 MG TAB PO SCH (09:25)
[2020-10-07] MEDS: busPIRone HCl 5 MG TAB PO SCH ×2 (09:25→21:33)
[2020-10-07] MEDS: Dorzolamide HCl 2% Ophth Soln 10 ml Bottle EA EYE SCH ×2 (09:26→21:37)
[2020-10-07] MEDS: Scopolamine 1.5 mg/72 hour Patch TD SCH (11:32)
[2020-10-07] MEDS ORDERED: Magnesium 2 GM/50 ML 2 GM in Premix Bag 1 BAG IVPB SCH (12:45)
[2020-10-07] MEDS ORDERED: Sodium Bicarbonate Tab 325 MG TAB PER TUBE PRN (13:45)
[2020-10-07] MEDS ORDERED: Pancrelipase DR 12,000 1 CAP FS PRN (13:45)
[2020-10-07] MEDS: Insulin Glargine 26 UNITS in Pre-Filled Syringe 1 EACH SC SCH (21:34)
[2020-10-08] MEDS: Insulin Regular 300 UNITS/3 ML VIAL SC PRN ×3 (00:26→21:27)
[2020-10-08 03:58] LABS: #Basophils 0.1 thou/uL (0.0-0.2); #Eosinphils 0.4 thou/uL (0.0-0.7); #Lymphocytes 2.6 thou/uL (1.20-3.40); #Monocytes 0.8 thou/uL (0.11-0.59); #Neutrophils 4.3 thou/uL (1.40-6.50); %Basophils 0.7 % (0.0-1.0); %Eosinophils 4.9 % (0.0-10.0); %Lymphocytes 31.9 % (21.0-51.0); %Monocytes 9.8 % (0.0-10.0); %Neutrophils 52.7 % (42.0-75.0); Hemoglobin 9.7 g/dL (12.0-16.0); Mean Corpuscular HGB CONC 31.7 g/dL (32.0-36.0); Mean Corpuscular Hemoglobin 31.8 pg (27.0-31.0); Mean Platelet Volume 10.5 fL (7.4-10.4); Platelet Count 200 thou/uL (130-400); RBC Distribution Width 14.8 % (11.5-14.5); Red Blood Cell (RBC) Count 3.04 mill/uL (4.20-5.40); White Blood Cell (WBC) Count 8.2 thou/uL (4.8-10.8)
[2020-10-08 04:12] LABS: Anion Gap 12 mmol/L (10-20); BUN (Urea Nitrogen) 29 mg/dL (9.8-20.1); Calc. Creatinine Clearance 164 mL/min (70-130); Calcium 8.7 mg/dL (7.8-10.44); Carbon Dioxide 27 mmol/L (22-29); Chloride 105 mmol/L (98-107); Glucose 265 mg/dL (70-105); Sodium 140 mmol/L (136-145)
[2020-10-08] MEDS: Levothyroxine Sodium 25 MCG TAB PO SCH (06:39)
[2020-10-08] MEDS: Heparin 5,000 UNITS/ML VIAL SC SCH ×3 (09:03→21:45)
[2020-10-08] MEDS: Insulin Glargine 35 UNITS in Pre-Filled Syringe SC SCH (09:03)
[2020-10-08] MEDS: PARoxetine 20 MG TAB PO SCH (09:03)
[2020-10-08] MEDS: Aspirin Chewable 81 MG TAB PO SCH (09:03)
[2020-10-08] MEDS: busPIRone HCl 5 MG TAB PO SCH ×2 (09:03→21:45)
[2020-10-08] MEDS: Polyethylene Glycol 3350 17 GM Packet PO SCH (09:03)
[2020-10-08] MEDS: Divalproex Sodium 125 mg Sprinkle Capsule PO SCH ×2 (09:03→22:24)
[2020-10-08] MEDS: Metamucil PACK PER TUBE SCH (09:03)
[2020-10-08] MEDS: Amlodipine 5 MG TAB PO SCH (09:03)
[2020-10-08] MEDS: predniSONE 5 MG TAB PO SCH (09:03)
[2020-10-08] MEDS: Pantoprazole 40 MG GRANULES PACKET PO SCH (09:04)
[2020-10-08] MEDS: Dorzolamide HCl 2% Ophth Soln 10 ml Bottle EA EYE SCH ×2 (09:04→21:50)
[2020-10-08] MEDS: Cyanocobalamin (Vitamin B-12) 1,000 MCG TAB PO SCH (09:04)
[2020-10-08] MEDS: Insulin Glargine 26 UNITS in Pre-Filled Syringe 1 EACH SC SCH (21:45)
[2020-10-09] MEDS: Insulin Regular 300 UNITS/3 ML VIAL SC PRN ×5 (00:39→21:26)
[2020-10-09 03:43] LABS: #Basophils 0.1 thou/uL (0.0-0.2); #Eosinphils 0.4 thou/uL (0.0-0.7); #Lymphocytes 3.4 thou/uL (1.20-3.40); #Neutrophils 4.7 thou/uL (1.40-6.50); %Basophils 0.6 % (0.0-1.0); %Eosinophils 3.7 % (0.0-10.0); %Lymphocytes 35.7 % (21.0-51.0); %Monocytes 10.2 % (0.0-10.0); %Neutrophils 49.8 % (42.0-75.0); Hemoglobin 10.9 g/dL (12.0-16.0); Mean Corpuscular Hemoglobin 32.5 pg (27.0-31.0); Mean Platelet Volume 10.2 fL (7.4-10.4); Platelet Count 193 thou/uL (130-400); RBC Distribution Width 15.2 % (11.5-14.5); Red Blood Cell (RBC) Count 3.36 mill/uL (4.20-5.40); White Blood Cell (WBC) Count 9.5 thou/uL (4.8-10.8)
[2020-10-09 04:06] LABS: Anion Gap 17 mmol/L (10-20); BUN (Urea Nitrogen) 26 mg/dL (9.8-20.1); Calc. Creatinine Clearance 171 mL/min (70-130); Calcium 9.3 mg/dL (7.8-10.44); Carbon Dioxide 21 mmol/L (22-29); Chloride 106 mmol/L (98-107); Glucose 244 mg/dL (70-105); Potassium 5.2 mmol/L (3.5-5.1); Sodium 139 mmol/L (136-145)
[2020-10-09] MEDS: Levothyroxine Sodium 25 MCG TAB PO SCH (05:58)
[2020-10-09] MEDS: Insulin Glargine 35 UNITS in Pre-Filled Syringe SC SCH (08:58)
[2020-10-09] MEDS: Divalproex Sodium 125 mg Sprinkle Capsule PO SCH ×2 (08:58→21:25)
[2020-10-09] MEDS: predniSONE 5 MG TAB PO SCH (08:59)
[2020-10-09] MEDS: Metamucil PACK PER TUBE SCH (08:59)
[2020-10-09] MEDS: Amlodipine 5 MG TAB PO SCH (08:59)
[2020-10-09] MEDS: PARoxetine 20 MG TAB PO SCH (08:59)
[2020-10-09] MEDS: Polyethylene Glycol 3350 17 GM Packet PO SCH (08:59)
[2020-10-09] MEDS: Pantoprazole 40 MG GRANULES PACKET PO SCH (08:59)
[2020-10-09] MEDS: Heparin 5,000 UNITS/ML VIAL SC SCH ×3 (08:59→21:25)
[2020-10-09] MEDS: Cyanocobalamin (Vitamin B-12) 1,000 MCG TAB PO SCH (08:59)
[2020-10-09] MEDS: busPIRone HCl 5 MG TAB PO SCH ×2 (08:59→21:25)
[2020-10-09] MEDS: Aspirin Chewable 81 MG TAB PO SCH (08:59)
[2020-10-09] MEDS: Dorzolamide HCl 2% Ophth Soln 10 ml Bottle EA EYE SCH ×2 (09:00→21:26)
[2020-10-09] MEDS: Insulin Glargine 30 UNITS in Pre-Filled Syringe 1 EACH SC SCH (21:25)
[2020-10-10] MEDS: Insulin Regular 300 UNITS/3 ML VIAL SC PRN ×3 (00:35→12:01)
[2020-10-10 04:47] LABS: Anion Gap 16 mmol/L (10-20); BUN (Urea Nitrogen) 22 mg/dL (9.8-20.1); Calc. Creatinine Clearance 163 mL/min (70-130); Calcium 9.6 mg/dL (7.8-10.44); Carbon Dioxide 21 mmol/L (22-29); Chloride 103 mmol/L (98-107); Glucose 191 mg/dL (70-105); Potassium 5.7 mmol/L (3.5-5.1); Sodium 134 mmol/L (136-145)
[2020-10-10] MEDS: Levothyroxine Sodium 25 MCG TAB PO SCH (05:45)
[2020-10-10] MEDS: Polyethylene Glycol 3350 17 GM Packet PO SCH (08:25)
[2020-10-10] MEDS: Divalproex Sodium 125 mg Sprinkle Capsule PO SCH ×2 (08:25→21:20)
[2020-10-10] MEDS: Pantoprazole 40 MG GRANULES PACKET PO SCH (08:25)
[2020-10-10] MEDS: Insulin Glargine 35 UNITS in Pre-Filled Syringe SC SCH (08:25)
[2020-10-10] MEDS: Aspirin Chewable 81 MG TAB PO SCH (08:25)
[2020-10-10] MEDS: predniSONE 5 MG TAB PO SCH (08:25)
[2020-10-10] MEDS: Metamucil PACK PER TUBE SCH (08:25)
[2020-10-10] MEDS: PARoxetine 20 MG TAB PO SCH (08:26)
[2020-10-10] MEDS: Heparin 5,000 UNITS/ML VIAL SC SCH (08:26)
[2020-10-10] MEDS: Amlodipine 5 MG TAB PO SCH (08:26)
[2020-10-10] MEDS: Dorzolamide HCl 2% Ophth Soln 10 ml Bottle EA EYE SCH ×2 (08:26→21:20)
[2020-10-10] MEDS: Cyanocobalamin (Vitamin B-12) 1,000 MCG TAB PO SCH (08:26)
[2020-10-10] MEDS: busPIRone HCl 5 MG TAB PO SCH ×2 (08:26→21:20)
[2020-10-10] MEDS: Apixaban 2.5 MG TAB PER TUBE SCH ×2 (09:55→21:19)
[2020-10-10] MEDS: Scopolamine 1.5 mg/72 hour Patch TD SCH (11:57)
[2020-10-11] MEDS: Levothyroxine Sodium 25 MCG TAB PO SCH (05:30)
[2020-10-11 05:46] LABS: Anion Gap 15 mmol/L (10-20); BUN (Urea Nitrogen) 24 mg/dL (9.8-20.1); Calc. Creatinine Clearance 0 mL/min (70-130); Carbon Dioxide 25 mmol/L (22-29); Chloride 101 mmol/L (98-107); Glucose 99 mg/dL (70-105); Potassium 4.8 mmol/L (3.5-5.1); Sodium 136 mmol/L (136-145)
[2020-10-11] MEDS: Dorzolamide HCl 2% Ophth Soln 10 ml Bottle EA EYE SCH ×2 (10:01→23:29)
[2020-10-11] MEDS: Insulin Glargine 35 UNITS in Pre-Filled Syringe SC SCH ×2 (10:01→10:03)
[2020-10-11] MEDS: predniSONE 5 MG TAB PO SCH (10:02)
[2020-10-11] MEDS: busPIRone HCl 5 MG TAB PO SCH ×2 (10:02→21:40)
[2020-10-11] MEDS: Cyanocobalamin (Vitamin B-12) 1,000 MCG TAB PO SCH (10:02)
[2020-10-11] MEDS: Amlodipine 5 MG TAB PO SCH (10:02)
[2020-10-11] MEDS: Apixaban 2.5 MG TAB PER TUBE SCH ×2 (10:02→23:29)
[2020-10-11] MEDS: PARoxetine 20 MG TAB PO SCH (10:03)
[2020-10-11] MEDS: Pantoprazole 40 MG GRANULES PACKET PO SCH (10:03)
[2020-10-11] MEDS: Aspirin Chewable 81 MG TAB PO SCH (10:03)
[2020-10-11] MEDS: Divalproex Sodium 125 mg Sprinkle Capsule PO SCH ×2 (10:03→21:40)
[2020-10-11] MEDS: Polyethylene Glycol 3350 17 GM Packet PO SCH (10:05)
[2020-10-11] MEDS: Metamucil PACK PER TUBE SCH (10:05)
[2020-10-11] MEDS: Insulin Regular 300 UNITS/3 ML VIAL SC PRN ×3 (14:53→23:45)
[2020-10-11] MEDS: Insulin Glargine 30 UNITS in Pre-Filled Syringe 1 EACH SC SCH ×2 (21:40→23:34)
[2020-10-12 04:58] LABS: Anion Gap 15 mmol/L (10-20); BUN (Urea Nitrogen) 26 mg/dL (9.8-20.1); Calc. Creatinine Clearance 149 mL/min (70-130); Carbon Dioxide 25 mmol/L (22-29); Chloride 102 mmol/L (98-107); Glucose 94 mg/dL (70-105); Potassium 5.2 mmol/L (3.5-5.1); Sodium 137 mmol/L (136-145)
[2020-10-12] MEDS: Levothyroxine Sodium 25 MCG TAB PO SCH (05:23)
[2020-10-12] MEDS: PARoxetine 20 MG TAB PO SCH (09:16)
[2020-10-12] MEDS: Divalproex Sodium 125 mg Sprinkle Capsule PO SCH ×2 (09:16→23:41)
[2020-10-12] MEDS: busPIRone HCl 5 MG TAB PO SCH ×2 (09:16→22:07)
[2020-10-12] MEDS: Amlodipine 5 MG TAB PO SCH (09:16)
[2020-10-12] MEDS: Cyanocobalamin (Vitamin B-12) 1,000 MCG TAB PO SCH (09:17)
[2020-10-12] MEDS: predniSONE 5 MG TAB PO SCH (09:17)
[2020-10-12] MEDS: Metamucil PACK PER TUBE SCH (09:18)
[2020-10-12] MEDS: Apixaban 2.5 MG TAB PER TUBE SCH ×2 (09:18→23:41)
[2020-10-12] MEDS: Pantoprazole 40 MG GRANULES PACKET PO SCH (09:18)
[2020-10-12] MEDS: Polyethylene Glycol 3350 17 GM Packet PO SCH (09:18)
[2020-10-12] MEDS: Aspirin Chewable 81 MG TAB PO SCH (09:18)
[2020-10-12] MEDS: Dorzolamide HCl 2% Ophth Soln 10 ml Bottle EA EYE SCH ×2 (09:19→21:32)
[2020-10-12] MEDS: Insulin Regular 300 UNITS/3 ML VIAL SC PRN (16:11)
[2020-10-12] MEDS: Insulin Glargine 30 UNITS in Pre-Filled Syringe 1 EACH SC SCH (21:34)
[2020-10-13] MEDS ORDERED: Acetaminophen 650 MG/20.3 ML UDCUP PO PRN (00:38)
[2020-10-13 05:10] LABS: Anion Gap 14 mmol/L (10-20); BUN (Urea Nitrogen) 29 mg/dL (9.8-20.1); Calc. Creatinine Clearance 146 mL/min (70-130); Calcium 8.9 mg/dL (7.8-10.44); Carbon Dioxide 25 mmol/L (22-29); Chloride 101 mmol/L (98-107); Glucose 157 mg/dL (70-105); Potassium 4.4 mmol/L (3.5-5.1); Sodium 136 mmol/L (136-145)
[2020-10-13] MEDS: Levothyroxine Sodium 25 MCG TAB PO SCH (06:15)
[2020-10-13] MEDS: Apixaban 2.5 MG TAB PER TUBE SCH ×2 (09:27→20:59)
[2020-10-13] MEDS: Amlodipine 5 MG TAB PO SCH (09:27)
[2020-10-13] MEDS: busPIRone HCl 5 MG TAB PO SCH ×2 (09:28→20:59)
[2020-10-13] MEDS: Aspirin Chewable 81 MG TAB PO SCH (09:28)
[2020-10-13] MEDS: Cyanocobalamin (Vitamin B-12) 1,000 MCG TAB PO SCH (09:28)
[2020-10-13] MEDS: Insulin Glargine 35 UNITS in Pre-Filled Syringe SC SCH (09:30)
[2020-10-13] MEDS: Pantoprazole 40 MG GRANULES PACKET PO SCH (09:32)
[2020-10-13] MEDS: Polyethylene Glycol 3350 17 GM Packet PO SCH (09:32)
[2020-10-13] MEDS: predniSONE 5 MG TAB PO SCH (09:33)
[2020-10-13] MEDS: PARoxetine 20 MG TAB PO SCH (09:36)
[2020-10-13] MEDS: Dorzolamide HCl 2% Ophth Soln 10 ml Bottle EA EYE SCH (09:50)
[2020-10-13] MEDS: Metamucil PACK PER TUBE SCH (09:50)
[2020-10-13] MEDS: Divalproex Sodium 125 mg Sprinkle Capsule PO SCH ×2 (11:09→21:03)
[2020-10-13] MEDS: Scopolamine 1.5 mg/72 hour Patch TD SCH (12:13)
[2020-10-13] MEDS: Insulin Regular 300 UNITS/3 ML VIAL SC PRN (18:31)
[2020-10-13] MEDS: Insulin Glargine 30 UNITS in Pre-Filled Syringe 1 EACH SC SCH (20:58)
[2020-10-14] MEDS: Levothyroxine Sodium 25 MCG TAB PO SCH (05:12)
[2020-10-14] MEDS: Dorzolamide HCl 2% Ophth Soln 10 ml Bottle EA EYE SCH ×3 (05:13→22:00)
[2020-10-14 05:40] LABS: Anion Gap 14 mmol/L (10-20); BUN (Urea Nitrogen) 26 mg/dL (9.8-20.1); Calc. Creatinine Clearance 149 mL/min (70-130); Calcium 9.4 mg/dL (7.8-10.44); Carbon Dioxide 27 mmol/L (22-29); Chloride 101 mmol/L (98-107); Glucose 116 mg/dL (70-105); Potassium 4.5 mmol/L (3.5-5.1); Sodium 137 mmol/L (136-145)
[2020-10-14] MEDS: Apixaban 2.5 MG TAB PER TUBE SCH ×2 (08:39→21:31)
[2020-10-14] MEDS: Divalproex Sodium 125 mg Sprinkle Capsule PO SCH ×2 (08:40→21:30)
[2020-10-14] MEDS: predniSONE 5 MG TAB PO SCH (08:40)
[2020-10-14] MEDS: busPIRone HCl 5 MG TAB PO SCH ×2 (08:40→21:31)
[2020-10-14] MEDS: Polyethylene Glycol 3350 17 GM Packet PO SCH (08:40)
[2020-10-14] MEDS: Aspirin Chewable 81 MG TAB PO SCH (08:40)
[2020-10-14] MEDS: Amlodipine 5 MG TAB PO SCH (08:40)
[2020-10-14] MEDS: Pantoprazole 40 MG GRANULES PACKET PO SCH (08:41)
[2020-10-14] MEDS: Cyanocobalamin (Vitamin B-12) 1,000 MCG TAB PO SCH (08:41)
[2020-10-14] MEDS: PARoxetine 20 MG TAB PO SCH (08:41)
[2020-10-14] MEDS: Metamucil PACK PER TUBE SCH (08:42)
[2020-10-14] MEDS: Insulin Glargine 35 UNITS in Pre-Filled Syringe SC SCH (09:26)
[2020-10-14] MEDS: Insulin Glargine 30 UNITS in Pre-Filled Syringe 1 EACH SC SCH ×2 (21:31→21:35)
[2020-10-15] MEDS: Levothyroxine Sodium 25 MCG TAB PO SCH (04:55)
[2020-10-15 05:41] LABS: #Basophils 0.1 thou/uL (0.0-0.2); #Eosinphils 0.3 thou/uL (0.0-0.7); #Monocytes 0.8 thou/uL (0.11-0.59); #Neutrophils 5.5 thou/uL (1.40-6.50); %Basophils 1.1 % (0.0-1.0); %Eosinophils 3.3 % (0.0-10.0); %Lymphocytes 31.1 % (21.0-51.0); %Monocytes 7.7 % (0.0-10.0); %Neutrophils 56.8 % (42.0-75.0); Hemoglobin 12.1 g/dL (12.0-16.0); Mean Corpuscular HGB CONC 32.2 g/dL (32.0-36.0); Mean Corpuscular Hemoglobin 32.4 pg (27.0-31.0); Mean Platelet Volume 9.3 fL (7.4-10.4); Platelet Count 350 thou/uL (130-400); RBC Distribution Width 15.3 % (11.5-14.5); Red Blood Cell (RBC) Count 3.74 mill/uL (4.20-5.40); White Blood Cell (WBC) Count 9.7 thou/uL (4.8-10.8)
[2020-10-15] MEDS: Amlodipine 5 MG TAB PO SCH (10:06)
[2020-10-15] MEDS: Apixaban 2.5 MG TAB PER TUBE SCH ×2 (10:07→21:19)
[2020-10-15] MEDS: busPIRone HCl 5 MG TAB PO SCH ×2 (10:07→21:19)
[2020-10-15] MEDS: Aspirin Chewable 81 MG TAB PO SCH (10:07)
[2020-10-15] MEDS: Divalproex Sodium 125 mg Sprinkle Capsule PO SCH ×2 (10:07→21:19)
[2020-10-15] MEDS: Cyanocobalamin (Vitamin B-12) 1,000 MCG TAB PO SCH (10:07)
[2020-10-15] MEDS: Dorzolamide HCl 2% Ophth Soln 10 ml Bottle EA EYE SCH ×2 (10:09→22:26)
[2020-10-15] MEDS: PARoxetine 20 MG TAB PO SCH (10:10)
[2020-10-15] MEDS: Pantoprazole 40 MG GRANULES PACKET PO SCH (10:10)
[2020-10-15] MEDS: Polyethylene Glycol 3350 17 GM Packet PO SCH (10:10)
[2020-10-15] MEDS: Insulin Glargine 35 UNITS in Pre-Filled Syringe SC SCH (10:10)
[2020-10-15] MEDS: Metamucil PACK PER TUBE SCH (10:11)
[2020-10-15] MEDS: Insulin Regular 300 UNITS/3 ML VIAL SC PRN ×2 (11:10→18:23)
[2020-10-15] MEDS: Insulin Glargine 30 UNITS in Pre-Filled Syringe 1 EACH SC SCH (21:19)
[2020-10-16] MEDS: Levothyroxine Sodium 25 MCG TAB PO SCH (05:28)
[2020-10-16 05:32] LABS: #Basophils 0.1 thou/uL (0.0-0.2); #Eosinphils 0.3 thou/uL (0.0-0.7); #Lymphocytes 2.9 thou/uL (1.20-3.40); #Monocytes 0.8 thou/uL (0.11-0.59); #Neutrophils 4.8 thou/uL (1.40-6.50); %Basophils 0.6 % (0.0-1.0); %Lymphocytes 32.6 % (21.0-51.0); %Monocytes 9.3 % (0.0-10.0); %Neutrophils 54.6 % (42.0-75.0); Hemoglobin 12.6 g/dL (12.0-16.0); Mean Corpuscular HGB CONC 30.9 g/dL (32.0-36.0); Mean Corpuscular Hemoglobin 31.6 pg (27.0-31.0); Mean Platelet Volume 9.1 fL (7.4-10.4); Platelet Count 352 thou/uL (130-400); RBC Distribution Width 15.8 % (11.5-14.5); White Blood Cell (WBC) Count 8.9 thou/uL (4.8-10.8)
[2020-10-16 05:39] LABS: Anion Gap 16 mmol/L (10-20); BUN (Urea Nitrogen) 26 mg/dL (9.8-20.1); Calc. Creatinine Clearance 152 mL/min (70-130); Calcium 9.5 mg/dL (7.8-10.44); Carbon Dioxide 24 mmol/L (22-29); Chloride 100 mmol/L (98-107); Glucose 97 mg/dL (70-105); Potassium 4.4 mmol/L (3.5-5.1); Sodium 136 mmol/L (136-145)
[2020-10-16] MEDS: Insulin Glargine 35 UNITS in Pre-Filled Syringe SC SCH (09:58)
[2020-10-16] MEDS: Metamucil PACK PER TUBE SCH (09:58)
[2020-10-16] MEDS: Polyethylene Glycol 3350 17 GM Packet PO SCH (09:58)
[2020-10-16] MEDS: Apixaban 2.5 MG TAB PER TUBE SCH ×2 (10:00→21:25)
[2020-10-16] MEDS: Divalproex Sodium 125 mg Sprinkle Capsule PO SCH ×2 (10:00→21:25)
[2020-10-16] MEDS: Amlodipine 5 MG TAB PO SCH (10:00)
[2020-10-16] MEDS: Aspirin Chewable 81 MG TAB PO SCH (10:01)
[2020-10-16] MEDS: PARoxetine 20 MG TAB PO SCH (10:01)
[2020-10-16] MEDS: Scopolamine 1.5 mg/72 hour Patch TD SCH (10:01)
[2020-10-16] MEDS: Pantoprazole 40 MG GRANULES PACKET PO SCH (10:01)
[2020-10-16] MEDS: Cyanocobalamin (Vitamin B-12) 1,000 MCG TAB PO SCH (10:01)
[2020-10-16] MEDS: busPIRone HCl 5 MG TAB PO SCH ×2 (10:02→21:25)
[2020-10-16] MEDS: Dorzolamide HCl 2% Ophth Soln 10 ml Bottle EA EYE SCH ×2 (10:02→21:28)
[2020-10-16] MEDS: Insulin Regular 300 UNITS/3 ML VIAL SC PRN (11:58)
[2020-10-16] MEDS: Insulin Glargine 30 UNITS in Pre-Filled Syringe 1 EACH SC SCH (21:26)
[2020-10-17] MEDS: Insulin Regular 300 UNITS/3 ML VIAL SC PRN (00:27)
[2020-10-17] MEDS: Levothyroxine Sodium 25 MCG TAB PO SCH (05:57)
[2020-10-17] MEDS: Polyethylene Glycol 3350 17 GM Packet PO SCH (09:08)
[2020-10-17] MEDS: Insulin Glargine 35 UNITS in Pre-Filled Syringe SC SCH (09:14)
[2020-10-17] MEDS: Divalproex Sodium 125 mg Sprinkle Capsule PO SCH ×2 (09:15→22:02)
[2020-10-17] MEDS: Amlodipine 5 MG TAB PO SCH (09:15)
[2020-10-17] MEDS: Aspirin Chewable 81 MG TAB PO SCH (09:15)
[2020-10-17] MEDS: Apixaban 2.5 MG TAB PER TUBE SCH ×2 (09:16→22:03)
[2020-10-17] MEDS: busPIRone HCl 5 MG TAB PO SCH ×2 (09:16→22:03)
[2020-10-17] MEDS: Metamucil PACK PER TUBE SCH (09:16)
[2020-10-17] MEDS: Cyanocobalamin (Vitamin B-12) 1,000 MCG TAB PO SCH (09:16)
[2020-10-17] MEDS: PARoxetine 20 MG TAB PO SCH (09:16)
[2020-10-17] MEDS: Pantoprazole 40 MG GRANULES PACKET PO SCH (09:17)
[2020-10-17] MEDS: Dorzolamide HCl 2% Ophth Soln 10 ml Bottle EA EYE SCH ×2 (09:20→22:03)
[2020-10-17] MEDS: Insulin Glargine 30 UNITS in Pre-Filled Syringe 1 EACH SC SCH (22:11)
[2020-10-18] MEDS: Insulin Regular 300 UNITS/3 ML VIAL SC PRN ×3 (01:16→17:46)
[2020-10-18] MEDS: Levothyroxine Sodium 25 MCG TAB PO SCH (06:22)
[2020-10-18] MEDS: Amlodipine 5 MG TAB PO SCH (08:16)
[2020-10-18] MEDS: Divalproex Sodium 125 mg Sprinkle Capsule PO SCH ×2 (08:17→21:39)
[2020-10-18] MEDS: PARoxetine 20 MG TAB PO SCH (08:17)
[2020-10-18] MEDS: busPIRone HCl 5 MG TAB PO SCH ×2 (08:17→21:39)
[2020-10-18] MEDS: Cyanocobalamin (Vitamin B-12) 1,000 MCG TAB PO SCH (08:17)
[2020-10-18] MEDS: Aspirin Chewable 81 MG TAB PO SCH (08:17)
[2020-10-18] MEDS: Apixaban 2.5 MG TAB PER TUBE SCH ×2 (08:17→21:39)
[2020-10-18] MEDS: Pantoprazole 40 MG GRANULES PACKET PO SCH (08:17)
[2020-10-18] MEDS: Metamucil PACK PER TUBE SCH (08:18)
[2020-10-18] MEDS: Polyethylene Glycol 3350 17 GM Packet PO SCH (08:18)
[2020-10-18] MEDS: Insulin Glargine 35 UNITS in Pre-Filled Syringe SC SCH (09:18)
[2020-10-18] MEDS: Dorzolamide HCl 2% Ophth Soln 10 ml Bottle EA EYE SCH ×2 (09:20→21:42)
[2020-10-18] MEDS: Insulin Glargine 30 UNITS in Pre-Filled Syringe 1 EACH SC SCH (21:40)
[2020-10-19] MEDS: Levothyroxine Sodium 25 MCG TAB PO SCH (04:59)
[2020-10-19] MEDS: Cyanocobalamin (Vitamin B-12) 1,000 MCG TAB PO SCH (08:01)
[2020-10-19] MEDS: busPIRone HCl 5 MG TAB PO SCH ×2 (08:02→21:18)
[2020-10-19] MEDS: Polyethylene Glycol 3350 17 GM Packet PO SCH (08:02)
[2020-10-19] MEDS: Metamucil PACK PER TUBE SCH (08:02)
[2020-10-19] MEDS: Amlodipine 5 MG TAB PO SCH (08:02)
[2020-10-19] MEDS: Aspirin Chewable 81 MG TAB PO SCH (08:02)
[2020-10-19] MEDS: PARoxetine 20 MG TAB PO SCH (08:02)
[2020-10-19] MEDS: Pantoprazole 40 MG GRANULES PACKET PO SCH (08:03)
[2020-10-19] MEDS: Apixaban 2.5 MG TAB PER TUBE SCH ×2 (08:03→21:14)
[2020-10-19] MEDS: Dorzolamide HCl 2% Ophth Soln 10 ml Bottle EA EYE SCH ×2 (08:03→21:18)
[2020-10-19] MEDS: Divalproex Sodium 125 mg Sprinkle Capsule PO SCH ×2 (08:03→21:02)
[2020-10-19] MEDS: Scopolamine 1.5 mg/72 hour Patch TD SCH (09:47)
[2020-10-19] MEDS: Insulin Glargine 35 UNITS in Pre-Filled Syringe SC SCH (09:47)
[2020-10-19] MEDS: Insulin Regular 300 UNITS/3 ML VIAL SC PRN (16:45)
[2020-10-19] MEDS: Insulin Glargine 30 UNITS in Pre-Filled Syringe 1 EACH SC SCH (21:18)
[2020-10-20] MEDS: Levothyroxine Sodium 25 MCG TAB PO SCH (05:14)
[2020-10-20] MEDS: Insulin Regular 300 UNITS/3 ML VIAL SC PRN ×4 (05:55→21:05)
[2020-10-20] MEDS: Apixaban 2.5 MG TAB PER TUBE SCH ×2 (08:40→21:05)
[2020-10-20] MEDS: Cyanocobalamin (Vitamin B-12) 1,000 MCG TAB PO SCH (08:40)
[2020-10-20] MEDS: busPIRone HCl 5 MG TAB PO SCH ×2 (08:40→21:04)
[2020-10-20] MEDS: Divalproex Sodium 125 mg Sprinkle Capsule PO SCH ×2 (08:40→21:05)
[2020-10-20] MEDS: PARoxetine 20 MG TAB PO SCH (08:41)
[2020-10-20] MEDS: Pantoprazole 40 MG GRANULES PACKET PO SCH (08:41)
[2020-10-20] MEDS: Aspirin Chewable 81 MG TAB PO SCH (08:41)
[2020-10-20] MEDS: Metamucil PACK PER TUBE SCH (08:41)
[2020-10-20] MEDS: Amlodipine 5 MG TAB PO SCH (08:41)
[2020-10-20] MEDS: Polyethylene Glycol 3350 17 GM Packet PO SCH (08:41)
[2020-10-20] MEDS: Insulin Glargine 35 UNITS in Pre-Filled Syringe SC SCH (08:42)
[2020-10-20] MEDS: Dorzolamide HCl 2% Ophth Soln 10 ml Bottle EA EYE SCH ×2 (08:43→21:05)
[2020-10-20 09:08] LABS: Anion Gap 18 mmol/L (10-20); BUN (Urea Nitrogen) 15 mg/dL (9.8-20.1); Calc. Creatinine Clearance 146 mL/min (70-130); Calcium 9.6 mg/dL (7.8-10.44); Carbon Dioxide 24 mmol/L (22-29); Chloride 101 mmol/L (98-107); Glucose 220 mg/dL (70-105); Sodium 139 mmol/L (136-145)
[2020-10-20 09:13] LABS: #Eosinphils 0.4 thou/uL (0.0-0.7); #Lymphocytes 2.8 thou/uL (1.20-3.40); #Monocytes 0.9 thou/uL (0.11-0.59); #Neutrophils 4.1 thou/uL (1.40-6.50); %Basophils 0.5 % (0.0-1.0); %Eosinophils 4.7 % (0.0-10.0); %Lymphocytes 33.6 % (21.0-51.0); %Monocytes 11.3 % (0.0-10.0); %Neutrophils 49.9 % (42.0-75.0); Mean Corpuscular HGB CONC 31.5 g/dL (32.0-36.0); Mean Corpuscular Hemoglobin 32.1 pg (27.0-31.0); Mean Platelet Volume 8.6 fL (7.4-10.4); Platelet Count 413 thou/uL (130-400); RBC Distribution Width 15.8 % (11.5-14.5); Red Blood Cell (RBC) Count 3.73 mill/uL (4.20-5.40); White Blood Cell (WBC) Count 8.3 thou/uL (4.8-10.8)
[2020-10-20] MEDS: Insulin Glargine 30 UNITS in Pre-Filled Syringe 1 EACH SC SCH (21:05)
[2020-10-21 04:04] LABS: Actual Bicarbonate (HCO3a) 15.1 mEq/L (22-28); Base Excess (BEa) -13.5 mEq/L (-2.0 to +3.0); CO2 Tension 45.9 mmHg (35.0-45.0); Carboxyhemoglobin (COHb) 0.4 gm% (0.0-3.0); Hemoglobin (Hb) 11.7 g/dL (12.0-16.0); O2 Tension (PaO2), arterial 422.5 mmHg (80.0-100.0)
[2020-10-21 04:39] LABS: ALV-art Gradient 233.125 mmHg (0-20); Puncture Site RRA; pH, Arterial 7.14 (7.35-7.45)
[2020-10-21 05:16] LABS: Actual Bicarbonate (HCO3a) 19.1 mEq/L (22-28); Base Excess (BEa) -6.7 mEq/L (-2.0 to +3.0); CO2 Tension 39.6 mmHg (35.0-45.0); Calcium, Ionized (arterial) 1.14 mmol/L (1.12-1.30); Carboxyhemoglobin (COHb) 0.4 gm% (0.0-3.0); Hemoglobin (Hb) 11.8 g/dL (12.0-16.0); O2 Tension (PaO2), arterial 63.3 mmHg (80.0-100.0); Potassium - ABG Lab 3.53 mmol/L (3.70-5.30)
[2020-10-21 05:17] LABS: Puncture Site LRA
[2020-10-21] MEDS: Levothyroxine Sodium 25 MCG TAB PO SCH (06:25)
[2020-10-21] MEDS: Insulin Regular 300 UNITS/3 ML VIAL SC PRN ×4 (06:27→21:11)
[2020-10-21 06:39] LABS: Hemoglobin 11.7 g/dL (12.0-16.0); Mean Corpuscular HGB CONC 30.6 g/dL (32.0-36.0); Mean Platelet Volume 8.6 fL (7.4-10.4); Platelet Count 409 thou/uL (130-400); Red Blood Cell (RBC) Count 3.66 mill/uL (4.20-5.40); White Blood Cell (WBC) Count 14.1 thou/uL (4.8-10.8)
[2020-10-21 06:48] LABS: Anion Gap 23 mmol/L (10-20); BUN (Urea Nitrogen) 14 mg/dL (9.8-20.1); Calc. Creatinine Clearance 146 mL/min (70-130); Calcium 9.1 mg/dL (7.8-10.44); Carbon Dioxide 20 mmol/L (22-29); Chloride 101 mmol/L (98-107); Glucose 337 mg/dL (70-105); Potassium 4.8 mmol/L (3.5-5.1); Sodium 139 mmol/L (136-145)
[2020-10-21 06:58] LABS: Band 10 % (5-11); Lymphocytes 8 % (21-51); MDiff Complete? YES; Macrocytosis SLIGHT = 6-15 cells (100X) (0-5/hpf); Metamyelocyte 1 % (0-0); Monocytes 14 % (0-10); Neutrophil 67 % (42-75); Nucleated RBC 1 % (0); Platelet Morphology Comment Appears Decreased
[2020-10-21] MEDS: Aspirin Chewable 81 MG TAB PO SCH (08:58)
[2020-10-21] MEDS: Amlodipine 5 MG TAB PO SCH (08:58)
[2020-10-21] MEDS: Cyanocobalamin (Vitamin B-12) 1,000 MCG TAB PO SCH (08:58)
[2020-10-21] MEDS: Pantoprazole 40 MG GRANULES PACKET PO SCH (08:59)
[2020-10-21] MEDS: Apixaban 2.5 MG TAB PER TUBE SCH ×2 (08:59→21:10)
[2020-10-21] MEDS: Dorzolamide HCl 2% Ophth Soln 10 ml Bottle EA EYE SCH ×2 (08:59→21:11)
[2020-10-21] MEDS: PARoxetine 20 MG TAB PO SCH (08:59)
[2020-10-21] MEDS: busPIRone HCl 5 MG TAB PO SCH ×2 (08:59→21:15)
[2020-10-21] MEDS: Polyethylene Glycol 3350 17 GM Packet PO SCH (08:59)
[2020-10-21] MEDS: Insulin Glargine 35 UNITS in Pre-Filled Syringe SC SCH (09:02)
[2020-10-21] MEDS: Divalproex Sodium 125 mg Sprinkle Capsule PO SCH ×2 (09:02→21:10)
[2020-10-21] MEDS: Metamucil PACK PER TUBE SCH (09:12)
[2020-10-21] MEDS: Insulin Glargine 30 UNITS in Pre-Filled Syringe 1 EACH SC SCH (21:10)
[2020-10-22] MEDS: Levothyroxine Sodium 25 MCG TAB PO SCH (06:09)
[2020-10-22 06:34] LABS: #Basophils 0.1 thou/uL (0.0-0.2); #Eosinphils 0.2 thou/uL (0.0-0.7); #Lymphocytes 3.1 thou/uL (1.20-3.40); #Monocytes 1.2 thou/uL (0.11-0.59); #Neutrophils 6.3 thou/uL (1.40-6.50); %Basophils 0.5 % (0.0-1.0); %Eosinophils 2.3 % (0.0-10.0); %Lymphocytes 28.3 % (21.0-51.0); %Monocytes 10.7 % (0.0-10.0); %Neutrophils 58.3 % (42.0-75.0); Hemoglobin 10.3 g/dL (12.0-16.0); Mean Corpuscular HGB CONC 30.9 g/dL (32.0-36.0); Mean Corpuscular Hemoglobin 31.3 pg (27.0-31.0); Mean Platelet Volume 8.1 fL (7.4-10.4); Platelet Count 405 thou/uL (130-400); RBC Distribution Width 16.4 % (11.5-14.5); Red Blood Cell (RBC) Count 3.27 mill/uL (4.20-5.40); White Blood Cell (WBC) Count 10.8 thou/uL (4.8-10.8)
[2020-10-22 06:45] LABS: Chloride 103 mmol/L (98-107); Potassium 3.7 mmol/L (3.5-5.1); Sodium 140 mmol/L (136-145)
[2020-10-22 06:46] LABS: Calcium 9.3 mg/dL (7.8-10.44); Glucose 148 mg/dL (70-105)
[2020-10-22 06:48] LABS: Anion Gap 15 mmol/L (10-20); Carbon Dioxide 26 mmol/L (22-29)
[2020-10-22 06:50] LABS: BUN (Urea Nitrogen) 15 mg/dL (9.8-20.1); Calc. Creatinine Clearance 126 mL/min (70-130)
[2020-10-22] MEDS: Polyethylene Glycol 3350 17 GM Packet PO SCH (08:43)
[2020-10-22] MEDS: Metamucil PACK PER TUBE SCH (08:43)
[2020-10-22] MEDS: Divalproex Sodium 125 mg Sprinkle Capsule PO SCH ×2 (08:43→20:27)
[2020-10-22] MEDS: Insulin Glargine 35 UNITS in Pre-Filled Syringe SC SCH (08:43)
[2020-10-22] MEDS: PARoxetine 20 MG TAB PO SCH (08:43)
[2020-10-22] MEDS: Aspirin Chewable 81 MG TAB PO SCH (08:44)
[2020-10-22] MEDS: busPIRone HCl 5 MG TAB PO SCH ×2 (08:44→20:28)
[2020-10-22] MEDS: Amlodipine 5 MG TAB PO SCH (08:44)
[2020-10-22] MEDS: Cyanocobalamin (Vitamin B-12) 1,000 MCG TAB PO SCH (08:44)
[2020-10-22] MEDS: Apixaban 2.5 MG TAB PER TUBE SCH ×2 (08:44→20:28)
[2020-10-22] MEDS: Pantoprazole 40 MG GRANULES PACKET PO SCH (08:44)
[2020-10-22] MEDS: Dorzolamide HCl 2% Ophth Soln 10 ml Bottle EA EYE SCH ×2 (08:44→20:28)
[2020-10-22] MEDS: Sodium Chloride 0.9% 1,000 ML IV SCH ×2 (11:12→20:00)
[2020-10-22] MEDS: Insulin Regular 300 UNITS/3 ML VIAL SC PRN (12:52)
[2020-10-22] MEDS: Insulin Glargine 30 UNITS in Pre-Filled Syringe 1 EACH SC SCH (20:28)
[2020-10-23] MEDS: Sodium Chloride 0.9% 1,000 ML IV SCH (04:31)
[2020-10-23 04:35] LABS: #Basophils 0.1 thou/uL (0.0-0.2); #Eosinphils 0.3 thou/uL (0.0-0.7); #Lymphocytes 2.4 thou/uL (1.20-3.40); #Monocytes 1.1 thou/uL (0.11-0.59); #Neutrophils 6.6 thou/uL (1.40-6.50); %Basophils 0.5 % (0.0-1.0); %Eosinophils 3.2 % (0.0-10.0); %Lymphocytes 22.9 % (21.0-51.0); %Monocytes 10.6 % (0.0-10.0); %Neutrophils 62.9 % (42.0-75.0); Hemoglobin 9.5 g/dL (12.0-16.0); Mean Corpuscular HGB CONC 31.3 g/dL (32.0-36.0); Mean Platelet Volume 8.4 fL (7.4-10.4); Platelet Count 353 thou/uL (130-400); RBC Distribution Width 16.3 % (11.5-14.5); Red Blood Cell (RBC) Count 2.97 mill/uL (4.20-5.40); White Blood Cell (WBC) Count 10.6 thou/uL (4.8-10.8)
[2020-10-23 04:54] LABS: Anion Gap 13 mmol/L (10-20); BUN (Urea Nitrogen) 13 mg/dL (9.8-20.1); Calc. Creatinine Clearance 166 mL/min (70-130); Calcium 8.9 mg/dL (7.8-10.44); Carbon Dioxide 26 mmol/L (22-29); Chloride 105 mmol/L (98-107); Glucose 126 mg/dL (70-105); Potassium 3.6 mmol/L (3.5-5.1); Sodium 140 mmol/L (136-145)
[2020-10-23] MEDS: Levothyroxine Sodium 25 MCG TAB PO SCH (06:33)
[2020-10-23] MEDS: Pantoprazole 40 MG GRANULES PACKET PO SCH (08:45)
[2020-10-23] MEDS: Cyanocobalamin (Vitamin B-12) 1,000 MCG TAB PO SCH (08:45)
[2020-10-23] MEDS: Amlodipine 5 MG TAB PO SCH (08:45)
[2020-10-23] MEDS: Polyethylene Glycol 3350 17 GM Packet PO SCH (08:45)
[2020-10-23] MEDS: Aspirin Chewable 81 MG TAB PO SCH (08:45)
[2020-10-23] MEDS: PARoxetine 20 MG TAB PO SCH (08:45)
[2020-10-23] MEDS: Apixaban 2.5 MG TAB PER TUBE SCH ×2 (08:45→21:16)
[2020-10-23] MEDS: busPIRone HCl 5 MG TAB PO SCH ×2 (08:45→21:16)
[2020-10-23] MEDS: Metamucil PACK PER TUBE SCH (08:46)
[2020-10-23] MEDS: Divalproex Sodium 125 mg Sprinkle Capsule PO SCH ×2 (08:47→21:16)
[2020-10-23] MEDS: Dorzolamide HCl 2% Ophth Soln 10 ml Bottle EA EYE SCH ×2 (08:47→21:20)
[2020-10-23] MEDS: Insulin Glargine 35 UNITS in Pre-Filled Syringe SC SCH (08:47)
[2020-10-23] MEDS: Insulin Glargine 30 UNITS in Pre-Filled Syringe 1 EACH SC SCH (21:16)
[2020-10-24] MEDS: Sodium Chloride 0.9% 1,000 ML IV SCH ×2 (03:15→10:23)
[2020-10-24 04:16] LABS: #Basophils 0.1 thou/uL (0.0-0.2); #Eosinphils 0.4 thou/uL (0.0-0.7); #Lymphocytes 2.8 thou/uL (1.20-3.40); #Monocytes 1.1 thou/uL (0.11-0.59); #Neutrophils 5.1 thou/uL (1.40-6.50); %Basophils 0.9 % (0.0-1.0); %Eosinophils 4.2 % (0.0-10.0); %Lymphocytes 29.8 % (21.0-51.0); %Monocytes 11.6 % (0.0-10.0); %Neutrophils 53.5 % (42.0-75.0); Hemoglobin 10.9 g/dL (12.0-16.0); Mean Corpuscular HGB CONC 31.1 g/dL (32.0-36.0); Mean Corpuscular Hemoglobin 31.9 pg (27.0-31.0); Mean Platelet Volume 8.5 fL (7.4-10.4); Platelet Count 368 thou/uL (130-400); RBC Distribution Width 16.6 % (11.5-14.5); Red Blood Cell (RBC) Count 3.43 mill/uL (4.20-5.40); White Blood Cell (WBC) Count 9.4 thou/uL (4.8-10.8)
[2020-10-24 04:33] LABS: Anion Gap 14 mmol/L (10-20); BUN (Urea Nitrogen) 13 mg/dL (9.8-20.1); Calc. Creatinine Clearance 169 mL/min (70-130); Calcium 9.1 mg/dL (7.8-10.44); Carbon Dioxide 24 mmol/L (22-29); Chloride 108 mmol/L (98-107); Glucose 91 mg/dL (70-105); Potassium 3.7 mmol/L (3.5-5.1); Sodium 142 mmol/L (136-145)
[2020-10-24] MEDS: Levothyroxine Sodium 25 MCG TAB PO SCH (06:07)
[2020-10-24] MEDS: Dorzolamide HCl 2% Ophth Soln 10 ml Bottle EA EYE SCH ×2 (09:49→21:00)
[2020-10-24] MEDS: PARoxetine 20 MG TAB PO SCH (09:50)
[2020-10-24] MEDS: Cyanocobalamin (Vitamin B-12) 1,000 MCG TAB PO SCH (09:50)
[2020-10-24] MEDS: Polyethylene Glycol 3350 17 GM Packet PO SCH (09:50)
[2020-10-24] MEDS: Apixaban 2.5 MG TAB PER TUBE SCH ×2 (09:50→20:57)
[2020-10-24] MEDS: Metamucil PACK PER TUBE SCH (09:50)
[2020-10-24] MEDS: busPIRone HCl 5 MG TAB PO SCH ×2 (09:50→20:57)
[2020-10-24] MEDS: Amlodipine 5 MG TAB PO SCH (09:50)
[2020-10-24] MEDS: Divalproex Sodium 125 mg Sprinkle Capsule PO SCH ×2 (09:51→20:57)
[2020-10-24] MEDS: Aspirin Chewable 81 MG TAB PO SCH (09:51)
[2020-10-24] MEDS: Pantoprazole 40 MG GRANULES PACKET PO SCH (09:51)
[2020-10-24] MEDS: Insulin Glargine 35 UNITS in Pre-Filled Syringe SC SCH (09:51)
[2020-10-24] MEDS: Dextrose 50% Abboject 50 ML SYRINGE SLOW IVP PRN (13:10)
[2020-10-24] MEDS: Insulin Glargine 30 UNITS in Pre-Filled Syringe 1 EACH SC SCH (20:58)
[2020-10-25] MEDS: Levothyroxine Sodium 25 MCG TAB PO SCH (05:44)
[2020-10-25] MEDS: Dextrose 50% Abboject 50 ML SYRINGE SLOW IVP PRN (05:46)
[2020-10-25] MEDS: Polyethylene Glycol 3350 17 GM Packet PO SCH (09:38)
[2020-10-25] MEDS: Divalproex Sodium 125 mg Sprinkle Capsule PO SCH ×2 (09:38→21:37)
[2020-10-25] MEDS: Aspirin Chewable 81 MG TAB PO SCH (09:38)
[2020-10-25] MEDS: Metamucil PACK PER TUBE SCH (09:38)
[2020-10-25] MEDS: Pantoprazole 40 MG GRANULES PACKET PO SCH (09:39)
[2020-10-25] MEDS: PARoxetine 20 MG TAB PO SCH (09:39)
[2020-10-25] MEDS: busPIRone HCl 5 MG TAB PO SCH ×2 (09:39→21:37)
[2020-10-25] MEDS: Cyanocobalamin (Vitamin B-12) 1,000 MCG TAB PO SCH (09:39)
[2020-10-25] MEDS: Amlodipine 5 MG TAB PO SCH (09:39)
[2020-10-25] MEDS: Insulin Glargine 35 UNITS in Pre-Filled Syringe SC SCH (09:39)
[2020-10-25] MEDS: Apixaban 2.5 MG TAB PER TUBE SCH ×2 (09:39→21:37)
[2020-10-25] MEDS: Insulin Glargine 20 UNITS in Pre-Filled Syringe 1 EACH SC SCH (09:57)
[2020-10-25] MEDS: Dorzolamide HCl 2% Ophth Soln 10 ml Bottle EA EYE SCH ×2 (09:57→21:35)
[2020-10-26] MEDS: Insulin Regular 300 UNITS/3 ML VIAL SC PRN ×4 (00:38→15:51)
[2020-10-26] MEDS: Levothyroxine Sodium 25 MCG TAB PO SCH (05:05)
[2020-10-26] MEDS: Apixaban 2.5 MG TAB PER TUBE SCH ×2 (08:59→20:35)
[2020-10-26] MEDS: Metamucil PACK PER TUBE SCH (08:59)
[2020-10-26] MEDS: Divalproex Sodium 125 mg Sprinkle Capsule PO SCH ×2 (09:00→20:35)
[2020-10-26] MEDS: Aspirin Chewable 81 MG TAB PO SCH (09:01)
[2020-10-26] MEDS: Pantoprazole 40 MG GRANULES PACKET PO SCH (09:01)
[2020-10-26] MEDS: Amlodipine 5 MG TAB PO SCH (09:01)
[2020-10-26] MEDS: PARoxetine 20 MG TAB PO SCH (09:02)
[2020-10-26] MEDS: Insulin Glargine 20 UNITS in Pre-Filled Syringe 1 EACH SC SCH (09:02)
[2020-10-26] MEDS: Dorzolamide HCl 2% Ophth Soln 10 ml Bottle EA EYE SCH ×2 (09:26→20:36)
[2020-10-26] MEDS: Cyanocobalamin (Vitamin B-12) 1,000 MCG TAB PO SCH (09:27)
[2020-10-26] MEDS: busPIRone HCl 5 MG TAB PO SCH ×2 (09:33→20:35)
[2020-10-26] MEDS: Polyethylene Glycol 3350 17 GM Packet PO SCH (09:57)
[2020-10-26 10:23] LABS: Anion Gap 14 mmol/L (10-20); BUN (Urea Nitrogen) 17 mg/dL (9.8-20.1); Calc. Creatinine Clearance 171 mL/min (70-130); Calcium 9.2 mg/dL (7.8-10.44); Carbon Dioxide 23 mmol/L (22-29); Chloride 108 mmol/L (98-107); Glucose 172 mg/dL (70-105); Potassium 3.7 mmol/L (3.5-5.1); Sodium 141 mmol/L (136-145)
[2020-10-26 10:43] LABS: Band 13 % (5-11); Eosinophils 7 % (0-10); Hemoglobin 10.9 g/dL (12.0-16.0); Lymphocytes 28 % (21-51); MDiff Complete? YES; Mean Corpuscular HGB CONC 32.5 g/dL (32.0-36.0); Mean Corpuscular Hemoglobin 33.3 pg (27.0-31.0); Mean Platelet Volume 8.2 fL (7.4-10.4); Metamyelocyte 2 % (0-0); Monocytes 12 % (0-10); Myelocyte 2 % (0-0); Neutrophil 35 % (42-75); Nucleated RBC 1 % (0); Platelet Count 366 thou/uL (130-400); RBC Distribution Width 16.4 % (11.5-14.5); Red Blood Cell (RBC) Count 3.28 mill/uL (4.20-5.40); White Blood Cell (WBC) Count 9.1 thou/uL (4.8-10.8)
[2020-10-27] MEDS: Insulin Regular 300 UNITS/3 ML VIAL SC PRN ×3 (06:21→20:49)
[2020-10-27] MEDS: Levothyroxine Sodium 25 MCG TAB PO SCH (06:21)
[2020-10-27] MEDS: Amlodipine 5 MG TAB PO SCH (09:24)
[2020-10-27] MEDS: busPIRone HCl 5 MG TAB PO SCH ×2 (09:24→20:47)
[2020-10-27] MEDS: Aspirin Chewable 81 MG TAB PO SCH (09:24)
[2020-10-27] MEDS: PARoxetine 20 MG TAB PO SCH (09:25)
[2020-10-27] MEDS: Polyethylene Glycol 3350 17 GM Packet PO SCH (09:25)
[2020-10-27] MEDS: Apixaban 2.5 MG TAB PER TUBE SCH ×2 (09:25→20:47)
[2020-10-27] MEDS: Pantoprazole 40 MG GRANULES PACKET PO SCH (09:25)
[2020-10-27] MEDS: Divalproex Sodium 125 mg Sprinkle Capsule PO SCH ×2 (09:26→20:47)
[2020-10-27] MEDS: Insulin Glargine 20 UNITS in Pre-Filled Syringe 1 EACH SC SCH (09:26)
[2020-10-27] MEDS: Metamucil PACK PER TUBE SCH (09:42)
[2020-10-27] MEDS: Dorzolamide HCl 2% Ophth Soln 10 ml Bottle EA EYE SCH ×2 (09:48→20:48)
[2020-10-27] MEDS: Cyanocobalamin (Vitamin B-12) 1,000 MCG TAB PO SCH (09:48)
[2020-10-28] MEDS: Levothyroxine Sodium 25 MCG TAB PO SCH (06:01)
[2020-10-28] MEDS: Pantoprazole 40 MG GRANULES PACKET PO SCH (09:16)
[2020-10-28] MEDS: Aspirin Chewable 81 MG TAB PO SCH (09:16)
[2020-10-28] MEDS: Polyethylene Glycol 3350 17 GM Packet PO SCH (09:16)
[2020-10-28] MEDS: Divalproex Sodium 125 mg Sprinkle Capsule PO SCH ×2 (09:16→21:04)
[2020-10-28] MEDS: Cyanocobalamin (Vitamin B-12) 1,000 MCG TAB PO SCH (09:16)
[2020-10-28] MEDS: PARoxetine 20 MG TAB PO SCH (09:16)
[2020-10-28] MEDS: Metamucil PACK PER TUBE SCH (09:17)
[2020-10-28] MEDS: Dorzolamide HCl 2% Ophth Soln 10 ml Bottle EA EYE SCH ×2 (09:17→21:04)
[2020-10-28] MEDS: Apixaban 2.5 MG TAB PER TUBE SCH ×2 (09:17→21:04)
[2020-10-28] MEDS: Insulin Glargine 20 UNITS in Pre-Filled Syringe 1 EACH SC SCH (09:17)
[2020-10-28] MEDS: busPIRone HCl 5 MG TAB PO SCH ×2 (09:17→21:04)
[2020-10-28] MEDS: Amlodipine 5 MG TAB PO SCH (09:17)
[2020-10-28] MEDS: Insulin Regular 300 UNITS/3 ML VIAL SC PRN ×2 (17:39→21:29)
[2020-10-29 03:58] LABS: Anion Gap 13 mmol/L (10-20); BUN (Urea Nitrogen) 14 mg/dL (9.8-20.1); Calc. Creatinine Clearance 176 mL/min (70-130); Calcium 9.1 mg/dL (7.8-10.44); Carbon Dioxide 26 mmol/L (22-29); Chloride 105 mmol/L (98-107); Glucose 279 mg/dL (70-105); Potassium 3.9 mmol/L (3.5-5.1); Sodium 140 mmol/L (136-145)
[2020-10-29 05:27] LABS: Band 4 % (5-11); Eosinophils 12 % (0-10); Hemoglobin 9.9 g/dL (12.0-16.0); Lymphocytes 30 % (21-51); MDiff Complete? YES; Mean Corpuscular HGB CONC 31.5 g/dL (32.0-36.0); Mean Corpuscular Hemoglobin 32.4 pg (27.0-31.0); Mean Platelet Volume 8.1 fL (7.4-10.4); Monocytes 14 % (0-10); Neutrophil 40 % (42-75); Platelet Count 338 thou/uL (130-400); RBC Distribution Width 16.5 % (11.5-14.5); Red Blood Cell (RBC) Count 3.07 mill/uL (4.20-5.40); White Blood Cell (WBC) Count 9.5 thou/uL (4.8-10.8)
[2020-10-29] MEDS: Levothyroxine Sodium 25 MCG TAB PO SCH (05:54)
[2020-10-29] MEDS: Insulin Regular 300 UNITS/3 ML VIAL SC PRN ×2 (05:55→22:50)
[2020-10-29] MEDS ORDERED: Insulin Glargine 30 UNITS in Pre-Filled Syringe 1 EACH SC SCH (09:00)
[2020-10-29] MEDS: Aspirin Chewable 81 MG TAB PO SCH (10:40)
[2020-10-29] MEDS: Apixaban 2.5 MG TAB PER TUBE SCH ×2 (10:40→20:10)
[2020-10-29] MEDS: busPIRone HCl 5 MG TAB PO SCH ×2 (10:40→20:10)
[2020-10-29] MEDS: Cyanocobalamin (Vitamin B-12) 1,000 MCG TAB PO SCH (10:40)
[2020-10-29] MEDS: PARoxetine 20 MG TAB PO SCH (10:40)
[2020-10-29] MEDS: Pantoprazole 40 MG GRANULES PACKET PO SCH (10:40)
[2020-10-29] MEDS: Amlodipine 5 MG TAB PO SCH (10:41)
[2020-10-29] MEDS: Divalproex Sodium 125 mg Sprinkle Capsule PO SCH ×2 (10:41→20:10)
[2020-10-29] MEDS: Polyethylene Glycol 3350 17 GM Packet PO SCH (10:42)
[2020-10-29] MEDS: Dorzolamide HCl 2% Ophth Soln 10 ml Bottle EA EYE SCH ×2 (10:42→20:46)
[2020-10-29] MEDS: Metamucil PACK PER TUBE SCH (10:42)
[2020-10-30] MEDS: Insulin Regular 300 UNITS/3 ML VIAL SC PRN ×4 (04:13→23:22)
[2020-10-30] MEDS: Levothyroxine Sodium 25 MCG TAB PO SCH (05:26)
[2020-10-30] MEDS: Aspirin Chewable 81 MG TAB PO SCH (08:44)
[2020-10-30] MEDS: busPIRone HCl 5 MG TAB PO SCH ×2 (08:44→21:03)
[2020-10-30] MEDS: Apixaban 2.5 MG TAB PER TUBE SCH ×2 (08:44→21:02)
[2020-10-30] MEDS: Amlodipine 5 MG TAB PO SCH (08:44)
[2020-10-30] MEDS: PARoxetine 20 MG TAB PO SCH (08:45)
[2020-10-30] MEDS: Cyanocobalamin (Vitamin B-12) 1,000 MCG TAB PO SCH (08:45)
[2020-10-30] MEDS: Metamucil PACK PER TUBE SCH (08:45)
[2020-10-30] MEDS: Divalproex Sodium 125 mg Sprinkle Capsule PO SCH ×2 (08:45→21:02)
[2020-10-30] MEDS: Pantoprazole 40 MG GRANULES PACKET PO SCH (08:45)
[2020-10-30] MEDS ORDERED: Insulin Glargine 40 UNITS in Pre-Filled Syringe 1 EACH SC SCH (09:00)
[2020-10-30] MEDS ORDERED: Sodium Chloride 0.9% 500 ML IV SCH (10:45)
[2020-10-30] MEDS: Polyethylene Glycol 3350 17 GM Packet PO SCH (11:21)
[2020-10-30] MEDS: Dorzolamide HCl 2% Ophth Soln 10 ml Bottle EA EYE SCH ×2 (11:21→21:03)
[2020-10-30 13:25] VITALS: BMI 48.4
[2020-10-31 04:23] LABS: Hemoglobin 9.8 g/dL (12.0-16.0); Mean Corpuscular HGB CONC 31.4 g/dL (32.0-36.0); Mean Corpuscular Hemoglobin 32.2 pg (27.0-31.0); Mean Platelet Volume 7.9 fL (7.4-10.4); Platelet Count 362 thou/uL (130-400); RBC Distribution Width 16.4 % (11.5-14.5); Red Blood Cell (RBC) Count 3.05 mill/uL (4.20-5.40); White Blood Cell (WBC) Count 8.2 thou/uL (4.8-10.8)
[2020-10-31 04:34] LABS: Anion Gap 13 mmol/L (10-20); BUN (Urea Nitrogen) 8 mg/dL (9.8-20.1); Calc. Creatinine Clearance 160 mL/min (70-130); Calcium 9.3 mg/dL (7.8-10.44); Carbon Dioxide 24 mmol/L (22-29); Chloride 107 mmol/L (98-107); Glucose 302 mg/dL (70-105); Potassium 4.3 mmol/L (3.5-5.1); Sodium 140 mmol/L (136-145)
[2020-10-31 05:03] LABS: Band 16 % (5-11); Eosinophils 13 % (0-10); Lymphocytes 33 % (21-51); MDiff Complete? YES; Monocytes 7 % (0-10); Neutrophil 31 % (42-75); Nucleated RBC 1 % (0)
[2020-10-31] MEDS: Levothyroxine Sodium 25 MCG TAB PO SCH (06:50)
[2020-10-31] MEDS ORDERED: Lantus 1000 UNITS/10 ML VIAL SC SCH (09:00)
[2020-10-31] MEDS: Pantoprazole 40 MG GRANULES PACKET PO SCH (09:02)
[2020-10-31] MEDS: PARoxetine 20 MG TAB PO SCH (09:02)
[2020-10-31] MEDS: Cyanocobalamin (Vitamin B-12) 1,000 MCG TAB PO SCH (09:02)
[2020-10-31] MEDS: Divalproex Sodium 125 mg Sprinkle Capsule PO SCH ×2 (09:02→21:02)
[2020-10-31] MEDS: busPIRone HCl 5 MG TAB PO SCH ×2 (09:03→21:03)
[2020-10-31] MEDS: Polyethylene Glycol 3350 17 GM Packet PO SCH (09:03)
[2020-10-31] MEDS: Aspirin Chewable 81 MG TAB PO SCH (09:03)
[2020-10-31] MEDS: Amlodipine 5 MG TAB PO SCH (09:03)
[2020-10-31] MEDS: Metamucil PACK PER TUBE SCH (09:03)
[2020-10-31] MEDS: Apixaban 2.5 MG TAB PER TUBE SCH ×2 (09:03→21:02)
[2020-10-31] MEDS: Lantus 1000 UNITS/10 ML VIAL SC SCH (09:04)
[2020-10-31] MEDS: Dorzolamide HCl 2% Ophth Soln 10 ml Bottle EA EYE SCH ×2 (09:04→21:03)
[2020-10-31] MEDS: Insulin Regular 300 UNITS/3 ML VIAL SC PRN ×3 (11:31→22:54)
[2020-11-01] MEDS: Levothyroxine Sodium 25 MCG TAB PO SCH (06:00)
[2020-11-01] MEDS: Insulin Regular 300 UNITS/3 ML VIAL SC PRN ×2 (06:01→11:44)
[2020-11-01] MEDS: Pantoprazole 40 MG GRANULES PACKET PO SCH (08:03)
[2020-11-01] MEDS: Dorzolamide HCl 2% Ophth Soln 10 ml Bottle EA EYE SCH (08:03)
[2020-11-01] MEDS: Amlodipine 5 MG TAB PO SCH (08:03)
[2020-11-01] MEDS: busPIRone HCl 5 MG TAB PO SCH (08:03)
[2020-11-01] MEDS: Aspirin Chewable 81 MG TAB PO SCH (08:03)
[2020-11-01] MEDS: Lantus 1000 UNITS/10 ML VIAL SC SCH (08:03)
[2020-11-01] MEDS: Polyethylene Glycol 3350 17 GM Packet PO SCH (08:03)
[2020-11-01] MEDS: Cyanocobalamin (Vitamin B-12) 1,000 MCG TAB PO SCH (08:03)
[2020-11-01] MEDS: PARoxetine 20 MG TAB PO SCH (08:03)
[2020-11-01] MEDS: Metamucil PACK PER TUBE SCH (08:04)
[2020-11-01] MEDS: Divalproex Sodium 125 mg Sprinkle Capsule PO SCH (08:04)
[2020-11-01] MEDS: Apixaban 2.5 MG TAB PER TUBE SCH (08:04)
[2020-11-01 08:39] VITALS: TEMP 97.5
[2020-11-01 12:16] VITALS: BP 123/54
[2020-11-02] MEDS ORDERED: Lantus 1000 UNITS/10 ML VIAL SC SCH (09:00)
== END 2020-11-01 16:00 | DRG 4 ==
LOC: ERS 23:21 → ERHOLD 09-10 03:20 → IMCU/EMU 09-10 06:50 → 2SW 10-10 18:59 → CCU 10-21 04:29 → IMCU/EMU 10-27 10:27
PROVIDERS: ADMIT Internal Medicine; ATTEND Internal Medicine
PROC: 5A1955Z Respiratory Ventilation, Greater than 96 Consecutive Hours (ICD-10-PCS; principal; 2020-09-10)
PROC: 3E033XZ Introduction of Vasopressor into Peripheral Vein, Percutaneous Approach (ICD-10-PCS; 2020-09-10)
PROC: XW13325 Transfusion of Convalescent Plasma (Nonautologous) into Peripheral Vein, Percutaneous Approach, New Technology Group 5 (ICD-10-PCS; 2020-09-10)
PROC: 8E0ZXY6 Isolation (ICD-10-PCS; 2020-09-10)
PROC: 0BH17EZ Insertion of Endotracheal Airway into Trachea, Via Natural or Artificial Opening (ICD-10-PCS; 2020-09-10)
PROC: 5A09357 Assistance with Respiratory Ventilation, Less than 24 Consecutive Hours, Continuous Positive Airway Pressure (ICD-10-PCS; 2020-09-10)
PROC: 02HV33Z Insertion of Infusion Device into Superior Vena Cava, Percutaneous Approach (ICD-10-PCS; 2020-09-10)
PROC: 04HY32Z Insertion of Monitoring Device into Lower Artery, Percutaneous Approach (ICD-10-PCS; 2020-09-10)
PROC: 4A143B0 Monitoring of Venous Pressure, Central, Percutaneous Approach (ICD-10-PCS; 2020-09-10)
PROC: 0D9670Z Drainage of Stomach with Drainage Device, Via Natural or Artificial Opening (ICD-10-PCS; 2020-09-10)
PROC: 5A1945Z Respiratory Ventilation, 24-96 Consecutive Hours (ICD-10-PCS; 2020-09-26)
PROC: 0BH17EZ Insertion of Endotracheal Airway into Trachea, Via Natural or Artificial Opening (ICD-10-PCS; 2020-09-26)
PROC: 0B21XFZ Change Tracheostomy Device in Trachea, External Approach (ICD-10-PCS; 2020-10-10)
PROC: 5A1955Z Respiratory Ventilation, Greater than 96 Consecutive Hours (ICD-10-PCS; 2020-10-21)
PROC: 0B21XFZ Change Tracheostomy Device in Trachea, External Approach (ICD-10-PCS; 2020-10-21)
PROC: 5A12012 Performance of Cardiac Output, Single, Manual (ICD-10-PCS; 2020-10-23)
PROC: 0B113F4 Bypass Trachea to Cutaneous with Tracheostomy Device, Percutaneous Approach (ICD-10-PCS; 2020-10-25)
PROC: 0DH63UZ Insertion of Feeding Device into Stomach, Percutaneous Approach (ICD-10-PCS; 2020-10-25)
DX: A41.89 Other specified sepsis (principal); U07.1 COVID-19; J96.01 Acute respiratory failure with hypoxia; J12.82 Pneumonia due to coronavirus disease 2019; R65.21 Severe sepsis with septic shock; G93.41 Metabolic encephalopathy; I46.9 Cardiac arrest, cause unspecified; E87.2 Acidosis; E87.0 Hyperosmolality and hypernatremia; I47.2 Ventricular tachycardia; D62 Acute posthemorrhagic anemia; E87.1 Hypo-osmolality and hyponatremia; G93.1 Anoxic brain damage, not elsewhere classified; Z68.42 Body mass index [BMI] 45.0-49.9, adult; E03.9 Hypothyroidism, unspecified; G40.909 Epilepsy, unspecified, not intractable, without status epilepticus; I10 Essential (primary) hypertension; E66.01 Morbid (severe) obesity due to excess calories; I66.22 Occlusion and stenosis of left posterior cerebral artery; E87.6 Hypokalemia; R00.1 Bradycardia, unspecified; E11.65 Type 2 diabetes mellitus with hyperglycemia; E83.42 Hypomagnesemia; E83.39 Other disorders of phosphorus metabolism; E87.5 Hyperkalemia; E11.649 Type 2 diabetes mellitus with hypoglycemia without coma; I69.320 Aphasia following cerebral infarction; Z78.1 Physical restraint status; Z79.899 Other long term (current) drug therapy; Z79.82 Long term (current) use of aspirin; Z79.4 Long term (current) use of insulin; Z74.01 Bed confinement status; Z79.890 Hormone replacement therapy; H54.61 Unqualified visual loss, right eye, normal vision left eye
CPT/HCPCS: 31500; 31624; 36415; 36416; 36430; 36556; 36600; 36620; 51702; 71045; 71275; 80048; 80053; 80164; 82553; 82805; 83605; 83735; 83880; 84100; 84145; 84443; 84484; 85025; 85379; 86140; 86850; 86900; 86901; 87040; 87077; 87149; 92950; 93005; 94002; 94003; 94640; 94660; 96365; 96366; 96368; 96375; 96376; 99292; C9113; J0330; J0360; J0456; J0696; J1100; J1644; J1815; J1940; J2060; J2704; J3010; J3475; J3480; J3490; J7050; J7070; J7512; J7620; P9017; Q9967; S0028

== ENCOUNTER 2020-12-25 12:26 | Inpatient (IN) | payer MEDICARE, MEDICAID ==
[2020-12-25 13:23] LABS: Hemoglobin 11.5 g/dL (12.0-16.0); Mean Corpuscular HGB CONC 29.3 g/dL (32.0-36.0); Mean Corpuscular Hemoglobin 30.1 pg (27.0-31.0); Mean Platelet Volume 10.6 fL (7.4-10.4); Platelet Count 206 thou/uL (130-400); RBC Distribution Width 17.9 % (11.5-14.5); Red Blood Cell (RBC) Count 3.84 mill/uL (4.20-5.40); White Blood Cell (WBC) Count 17.4 thou/uL (4.8-10.8)
[2020-12-25 13:50] LABS: Anisocytosis SLIGHT = 6-15 cells (100X) (0-5/hpf); Band 10 % (5-11); Eosinophils 19 % (0-10); Large Platelets SLIGHT; Lymphocytes 27 % (21-51); MDiff Complete? YES; Macrocytosis SLIGHT = 6-15 cells (100X) (0-5/hpf); Monocytes 2 % (0-10); Neutrophil 42 % (42-75); Nucleated RBC 1 % (0); Platelet Morphology Comment Appears Adequate; Polychromasia SLIGHT = 2-3 cells (100X) (0-2/hpf)
[2020-12-25 13:53] LABS: ALT (SGPT) 17 U/L (8-55); AST (SGOT) 48 U/L (5-34); Albumin 2.9 g/dL (3.5-5.0); Alkaline Phosphatase 85 U/L (40-110); Anion Gap 18 mmol/L (10-20); BUN (Urea Nitrogen) 108 mg/dL (9.8-20.1); Bilirubin, Total 0.3 mg/dL (0.2-1.2); Calc. Creatinine Clearance 0 mL/min (70-130); Calcium 9.7 mg/dL (7.8-10.44); Carbon Dioxide 30 mmol/L (22-29); Chloride 125 mmol/L (98-107); Glucose 370 mg/dL (70-105); Potassium 4.3 mmol/L (3.5-5.1); Protein, Total 8.9 g/dL (6.0-8.3); Sodium 169 mmol/L (136-145)
[2020-12-25 14:05] LABS: CKMB 5.6 ng/mL (0-6.6)
[2020-12-25] MEDS ORDERED: Cefepime 2 GM VIAL ONE (14:20)
[2020-12-25] MEDS ORDERED: Azithromycin 500 MG VIAL ONE (14:20)
[2020-12-25 14:47] LABS: Bacteria/HPF 3+ HPF (None Seen); Bilirubin Negative (Negative); Blood, Urine 2+ (Negative); Clarity Extra Turbid (Clear); Glucose, Urine (Dipstick) Greater than 1000 mg/dL (Negative); Ketone, Urine Negative (Negative); Leukocyte 500 Leu/uL (Negative); Nitrite Negative (Negative); Protein, Urine (Dipstick) 100 mg/dL (Neg-Trace); Specific Gravity, Urine 1.015 (1.002-1.036); Squamous Epithelial None Seen HPF (0-3); Transitional Epithelial 0-3 HPF (None Seen); Urobilinogen Normal mg/dL (Less than 2); WBC/HPF Greater than 50 HPF (0-3); pH, Urine 6.5 (5.0-9.0)
[2020-12-25] MEDS ORDERED: Ondansetron PF 4 MG/2 ML Vial IVP PRN (15:53)
[2020-12-25] MEDS ORDERED: Ondansetron ODT 4 MG TAB PO PRN (15:53)
[2020-12-25] MEDS ORDERED: Acetaminophen 650 MG Suppository PR PRN (15:53)
[2020-12-25] MEDS ORDERED: Sodium Chloride 0.9% 1,000 ML IV SCH (16:00)
[2020-12-25] MEDS ORDERED: Dextrose 5% in Water 1,000 ML IV PRN ×2 (16:01→17:58)
[2020-12-25] MEDS ORDERED: Dextrose 50% Abboject 50 ML SYRINGE SLOW IVP PRN ×2 (16:01→17:58)
[2020-12-25] MEDS ORDERED: Insulin Regular 300 UNITS/3 ML VIAL SC PRN ×2 (16:01)
[2020-12-25 16:56] LABS: Anion Gap 16 mmol/L (10-20); BUN (Urea Nitrogen) 96 mg/dL (9.8-20.1); Calc. Creatinine Clearance 0 mL/min (70-130); Calcium 8.7 mg/dL (7.8-10.44); Carbon Dioxide 25 mmol/L (22-29); Chloride 131 mmol/L (98-107); Glucose 300 mg/dL (70-105); Potassium 3.9 mmol/L (3.5-5.1); Sodium 168 mmol/L (136-145)
[2020-12-25 17:18] LABS: Lactic Acid 2.6 mmol/L (0.5-2.2)
[2020-12-25] MEDS ORDERED: Dextrose 5 %-0.45 % NaCl 1,000 ML IV SCH (18:00)
[2020-12-25] MEDS ORDERED: Apixaban 2.5 MG TAB PER TUBE SCH (21:00)
[2020-12-25] MEDS: HumaLOG 300 UNITS/3 ML VIAL SC PRN (22:02)
[2020-12-25 22:09] LABS: Anion Gap 14 mmol/L (10-20); BUN (Urea Nitrogen) 95 mg/dL (9.8-20.1); Calc. Creatinine Clearance 53 mL/min (70-130); Calcium 8.7 mg/dL (7.8-10.44); Carbon Dioxide 29 mmol/L (22-29); Chloride 130 mmol/L (98-107); Glucose 277 mg/dL (70-105); Potassium 3.6 mmol/L (3.5-5.1); Sodium 169 mmol/L (136-145)
[2020-12-25] MEDS ORDERED: Dextrose 5% in Water 1,000 ML IV SCH (22:30)
[2020-12-25 22:32] LABS: CKMB 8.7 ng/mL (0-6.6)
[2020-12-26 05:26] LABS: #Basophils 0.1 thou/uL (0.0-0.2); #Eosinphils 2.2 thou/uL (0.0-0.7); #Lymphocytes 3.6 thou/uL (1.20-3.40); #Monocytes 0.9 thou/uL (0.11-0.59); %Basophils 0.7 % (0.0-1.0); %Eosinophils 14.9 % (0.0-10.0); %Lymphocytes 24.5 % (21.0-51.0); %Monocytes 5.7 % (0.0-10.0); %Neutrophils 54.2 % (42.0-75.0); Anisocytosis SLIGHT = 6-15 cells (100X) (0-5/hpf); Hemoglobin 10.7 g/dL (12.0-16.0); MDiff Complete? YES; Mean Corpuscular HGB CONC 28.8 g/dL (32.0-36.0); Mean Corpuscular Hemoglobin 30.3 pg (27.0-31.0); Mean Platelet Volume 10.8 fL (7.4-10.4); Platelet Count 181 thou/uL (130-400); RBC Distribution Width 17.6 % (11.5-14.5); Red Blood Cell (RBC) Count 3.54 mill/uL (4.20-5.40); White Blood Cell (WBC) Count 14.8 thou/uL (4.8-10.8)
[2020-12-26] MEDS: HumaLOG 300 UNITS/3 ML VIAL SC PRN ×3 (06:00→18:49)
[2020-12-26 06:12] LABS: SARS-CoV-2 PCR by NAA Not Detected (NotDetected)
[2020-12-26 08:09] LABS: Hemoglobin 10.4 g/dL (12.0-16.0); Mean Corpuscular HGB CONC 29.4 g/dL (32.0-36.0); Mean Corpuscular Hemoglobin 30.5 pg (27.0-31.0); Mean Platelet Volume 10.5 fL (7.4-10.4); Platelet Count 174 thou/uL (130-400); RBC Distribution Width 17.9 % (11.5-14.5); Red Blood Cell (RBC) Count 3.39 mill/uL (4.20-5.40); White Blood Cell (WBC) Count 12.7 thou/uL (4.8-10.8)
[2020-12-26 08:10] LABS: #Basophils 0.1 thou/uL (0.0-0.2); #Monocytes 0.6 thou/uL (0.11-0.59); #Neutrophils 7.1 thou/uL (1.40-6.50); %Basophils 0.6 % (0.0-1.0); %Eosinophils 15.3 % (0.0-10.0); %Lymphocytes 23.6 % (21.0-51.0); %Monocytes 4.5 % (0.0-10.0)
[2020-12-26] MEDS ORDERED: Dextrose 5% in Water 1,000 ML IV SCH (08:15)
[2020-12-26 08:41] LABS: ALT (SGPT) 14 U/L (8-55); AST (SGOT) 31 U/L (5-34); Albumin 2.3 g/dL (3.5-5.0); Alkaline Phosphatase 62 U/L (40-110); Anion Gap 13 mmol/L (10-20); BUN (Urea Nitrogen) 93 mg/dL (9.8-20.1); Bilirubin, Total 0.3 mg/dL (0.2-1.2); Calc. Creatinine Clearance 55 mL/min (70-130); Calcium 8.7 mg/dL (7.8-10.44); Carbon Dioxide 29 mmol/L (22-29); Chloride 130 mmol/L (98-107); Glucose 283 mg/dL (70-105); Potassium 3.4 mmol/L (3.5-5.1); Protein, Total 7.3 g/dL (6.0-8.3); Sodium 169 mmol/L (136-145)
[2020-12-26 08:49] LABS: MDiff Complete? YES; Macrocytosis SLIGHT = 6-15 cells (100X) (0-5/hpf); Platelet Morphology Comment Appears Adequate; Polychromasia SLIGHT = 2-3 cells (100X) (0-2/hpf)
[2020-12-26] MEDS ORDERED: Hydrocortisone Sod Succ/PF 100 mg/2 ml Vial IVP SCH (09:00)
[2020-12-26] MEDS ORDERED: Norepinephrine 8 MG/0.9% NS 250 ML ONE (09:03)
[2020-12-26] MEDS ORDERED: Albumin 25% 25 GM/100 ML BOT IVPB ONE (09:15)
[2020-12-26] MEDS ORDERED: Sodium Chloride 0.9% 1,000 ML IV SCH (09:15)
[2020-12-26] MEDS: Albumin 25% 25 GM/100 ML BOT IVPB SCH ×3 (12:18→21:19)
[2020-12-26] MEDS: busPIRone HCl 5 MG TAB PER TUBE SCH ×2 (12:18→21:19)
[2020-12-26] MEDS: Atorvastatin Calcium 40 MG TAB PER TUBE SCH (12:18)
[2020-12-26] MEDS: Aspirin Chewable 81 MG TAB PER TUBE SCH (12:18)
[2020-12-26] MEDS: Apixaban 2.5 MG TAB PER TUBE SCH ×2 (12:18→21:19)
[2020-12-26] MEDS: Dorzolamide HCl 2% Ophth Soln 10 ml Bottle L EYE SCH ×2 (12:19→21:19)
[2020-12-26] MEDS: Polyethylene Glycol 3350 17 GM Packet PER TUBE SCH (12:19)
[2020-12-26] MEDS: Hydrocortisone 10 mg Tablet PO SCH (12:19)
[2020-12-26] MEDS: Metamucil PACK PER TUBE SCH (12:20)
[2020-12-26] MEDS: Valproate Sodium 250 mg/5 ml UD Cup PER TUBE SCH ×2 (12:20→21:19)
[2020-12-26] MEDS ORDERED: Norepinephrine 8 MG/0.9% NS 250 ML IVPB SCH (12:30)
[2020-12-26] MEDS: Dextrose 5% in Water 1,000 ML IV SCH ×2 (12:34→18:08)
[2020-12-26 12:38] LABS: Creatinine, Urine 25.2 mg/dL (47-110)
[2020-12-26 12:46] LABS: Albumin 2.8 g/dL (3.5-5.0); Anion Gap 13 mmol/L (10-20); BUN (Urea Nitrogen) 86 mg/dL (9.8-20.1); BUN/Creatinine Ratio 37.55; Calc. Creatinine Clearance 59 mL/min (70-130); Calcium 8.6 mg/dL (7.8-10.44); Carbon Dioxide 29 mmol/L (22-29); Chloride 125 mmol/L (98-107); Glucose 375 mg/dL (70-105); Phosphorus 2.7 mg/dL (2.3-4.7); Sodium 164 mmol/L (136-145)
[2020-12-26] MEDS ORDERED: Potassium Phosphate 15 MMOL in Sodium Chloride 0.9% 250 ML 250 ML IVPB SCH (14:45)
[2020-12-26] MEDS: Cefepime 2 GM in Sodium Chloride 0.9% 100 ML IVPB SCH (15:20)
[2020-12-26] MEDS ORDERED: Vancomycin 1 GM in Premix Bag 1 BAG IVPB SCH (16:00)
[2020-12-26] MEDS: Hydrocortisone Sod Succ/PF 100 mg/2 ml Vial IVP SCH (16:13)
[2020-12-26 17:17] LABS: Vancomycin, Random 16.9 ug/mL (See Comment)
[2020-12-26 17:29] LABS: Albumin 3.1 g/dL (3.5-5.0); Anion Gap 14 mmol/L (10-20); BUN (Urea Nitrogen) 79 mg/dL (9.8-20.1); BUN/Creatinine Ratio 35.75; Calc. Creatinine Clearance 62 mL/min (70-130); Calcium 8.4 mg/dL (7.8-10.44); Carbon Dioxide 28 mmol/L (22-29); Chloride 123 mmol/L (98-107); Glucose 399 mg/dL (70-105); Phosphorus 2.7 mg/dL (2.3-4.7); Potassium 3.1 mmol/L (3.5-5.1); Sodium 162 mmol/L (136-145)
[2020-12-26] MEDS: Vancomycin HCl 1.5 GM in Sodium Chloride 0.9% 250 ML 300 ML IVPB SCH (18:02)
[2020-12-26] MEDS: Potassium Bicarbonate/Cit Ac 20 MEQ TAB PER TUBE SCH (18:02)
[2020-12-26] MEDS ORDERED: Albumin 25% 100 ML ONE (20:24)
[2020-12-26 20:44] LABS: Albumin 3.1 g/dL (3.5-5.0); Anion Gap 15 mmol/L (10-20); BUN (Urea Nitrogen) 76 mg/dL (9.8-20.1); BUN/Creatinine Ratio 35.51; Calc. Creatinine Clearance 64 mL/min (70-130); Calcium 8.5 mg/dL (7.8-10.44); Carbon Dioxide 28 mmol/L (22-29); Chloride 124 mmol/L (98-107); Glucose 404 mg/dL (70-105); Phosphorus 3.7 mg/dL (2.3-4.7); Sodium 163 mmol/L (136-145)
[2020-12-26] MEDS: Latanoprost 0.005% Ophth Soln 2.5 ml Bottle L EYE SCH (21:31)
[2020-12-27] MEDS: Hydrocortisone Sod Succ/PF 100 mg/2 ml Vial IVP SCH ×3 (00:10→15:44)
[2020-12-27] MEDS: Potassium Bicarbonate/Cit Ac 20 MEQ TAB PER TUBE SCH ×4 (00:10→18:10)
[2020-12-27] MEDS: HumaLOG 300 UNITS/3 ML VIAL SC PRN ×3 (00:18→11:49)
[2020-12-27] MEDS: Dextrose 5% in Water 1,000 ML IV SCH (00:21)
[2020-12-27 04:46] LABS: #Basophils 0.1 thou/uL (0.0-0.2); #Eosinphils 0.1 thou/uL (0.0-0.7); #Lymphocytes 2.3 thou/uL (1.20-3.40); #Monocytes 0.3 thou/uL (0.11-0.59); #Neutrophils 8.6 thou/uL (1.40-6.50); %Basophils 0.5 % (0.0-1.0); %Monocytes 2.4 % (0.0-10.0); %Neutrophils 76.1 % (42.0-75.0); Mean Corpuscular HGB CONC 29.4 g/dL (32.0-36.0); Mean Corpuscular Hemoglobin 29.7 pg (27.0-31.0); Mean Platelet Volume 10.6 fL (7.4-10.4); Platelet Count 146 thou/uL (130-400); RBC Distribution Width 17.3 % (11.5-14.5); Red Blood Cell (RBC) Count 3.03 mill/uL (4.20-5.40); White Blood Cell (WBC) Count 11.3 thou/uL (4.8-10.8)
[2020-12-27 05:04] LABS: Anion Gap 14 mmol/L (10-20); BUN (Urea Nitrogen) 72 mg/dL (9.8-20.1); Calc. Creatinine Clearance 71 mL/min (70-130); Calcium 8.5 mg/dL (7.8-10.44); Carbon Dioxide 26 mmol/L (22-29); Chloride 122 mmol/L (98-107); Glucose 382 mg/dL (70-105); Potassium 3.7 mmol/L (3.5-5.1); Sodium 158 mmol/L (136-145)
[2020-12-27] MEDS: Levothyroxine Sodium 25 MCG TAB PER TUBE SCH (05:11)
[2020-12-27] MEDS: Hydrocortisone 10 mg Tablet PO SCH (08:49)
[2020-12-27] MEDS: Polyethylene Glycol 3350 17 GM Packet PER TUBE SCH (08:49)
[2020-12-27] MEDS: Metamucil PACK PER TUBE SCH (08:49)
[2020-12-27] MEDS: Aspirin Chewable 81 MG TAB PER TUBE SCH (08:50)
[2020-12-27] MEDS: Valproate Sodium 250 mg/5 ml UD Cup PER TUBE SCH ×2 (08:50→20:27)
[2020-12-27] MEDS: Atorvastatin Calcium 40 MG TAB PER TUBE SCH (08:50)
[2020-12-27] MEDS: Dorzolamide HCl 2% Ophth Soln 10 ml Bottle L EYE SCH ×2 (08:50→20:27)
[2020-12-27] MEDS: Lantus 1000 UNITS/10 ML VIAL SC SCH ×2 (08:52→20:27)
[2020-12-27] MEDS: busPIRone HCl 5 MG TAB PER TUBE SCH ×2 (09:08→20:27)
[2020-12-27] MEDS: Apixaban 2.5 MG TAB PER TUBE SCH ×2 (09:08→20:27)
[2020-12-27] MEDS: Cefepime 2 GM in Sodium Chloride 0.9% 100 ML IVPB SCH (14:45)
[2020-12-27] MEDS: Vancomycin HCl 1.5 GM in Sodium Chloride 0.9% 250 ML 300 ML IVPB SCH (18:44)
[2020-12-27] MEDS: Latanoprost 0.005% Ophth Soln 2.5 ml Bottle L EYE SCH (20:27)
[2020-12-28] MEDS: Potassium Bicarbonate/Cit Ac 20 MEQ TAB PER TUBE SCH ×4 (00:11→17:58)
[2020-12-28] MEDS: Hydrocortisone Sod Succ/PF 100 mg/2 ml Vial IVP SCH ×3 (00:11→17:58)
[2020-12-28] MEDS: HumaLOG 300 UNITS/3 ML VIAL SC PRN ×5 (00:11→18:15)
[2020-12-28 04:04] LABS: Hemoglobin 9.6 g/dL (12.0-16.0); Mean Corpuscular HGB CONC 30.2 g/dL (32.0-36.0); Mean Corpuscular Hemoglobin 30.1 pg (27.0-31.0); Mean Corpuscular Volume 99.7 fL (78.0-98.0); Mean Platelet Volume 10.9 fL (7.4-10.4); Platelet Count 167 thou/uL (130-400); RBC Distribution Width 17.5 % (11.5-14.5); Red Blood Cell (RBC) Count 3.19 mill/uL (4.20-5.40); White Blood Cell (WBC) Count 10.2 thou/uL (4.8-10.8)
[2020-12-28 04:09] LABS: Anion Gap 13 mmol/L (10-20); BUN (Urea Nitrogen) 56 mg/dL (9.8-20.1); Calc. Creatinine Clearance 76 mL/min (70-130); Calcium 8.7 mg/dL (7.8-10.44); Carbon Dioxide 28 mmol/L (22-29); Chloride 124 mmol/L (98-107); Glucose 409 mg/dL (70-105); Sodium 161 mmol/L (136-145)
[2020-12-28 04:30] LABS: Band 9 % (5-11); Eosinophils 2 % (0-10); Lymphocytes 15 % (21-51); MDiff Complete? YES; Monocytes 4 % (0-10); Neutrophil 70 % (42-75); Nucleated RBC 4 % (0)
[2020-12-28] MEDS ORDERED: Dextrose 5% in Water 1,000 ML IV SCH (05:00)
[2020-12-28] MEDS: Dextrose 5% in Water 1,000 ML IV SCH ×3 (05:24→18:12)
[2020-12-28] MEDS: Levothyroxine Sodium 25 MCG TAB PER TUBE SCH (05:35)
[2020-12-28] MEDS: Hydrocortisone 10 mg Tablet PO SCH (08:56)
[2020-12-28] MEDS: Dorzolamide HCl 2% Ophth Soln 10 ml Bottle L EYE SCH ×2 (08:56→20:39)
[2020-12-28] MEDS: Aspirin Chewable 81 MG TAB PER TUBE SCH (08:59)
[2020-12-28] MEDS: Apixaban 2.5 MG TAB PER TUBE SCH ×2 (08:59→20:43)
[2020-12-28] MEDS: Atorvastatin Calcium 40 MG TAB PER TUBE SCH (09:00)
[2020-12-28] MEDS: Metamucil PACK PER TUBE SCH (09:00)
[2020-12-28] MEDS: Polyethylene Glycol 3350 17 GM Packet PER TUBE SCH (09:00)
[2020-12-28] MEDS: busPIRone HCl 5 MG TAB PER TUBE SCH ×2 (09:00→20:37)
[2020-12-28] MEDS: Valproate Sodium 250 mg/5 ml UD Cup PER TUBE SCH ×2 (09:04→20:37)
[2020-12-28] MEDS: Lantus 1000 UNITS/10 ML VIAL SC SCH ×2 (09:05→20:37)
[2020-12-28] MEDS: Cefepime 2 GM in Sodium Chloride 0.9% 100 ML IVPB SCH (14:16)
[2020-12-28] MEDS ORDERED: Sodium Bicarbonate Tab 325 MG TAB PER TUBE PRN (15:00)
[2020-12-28] MEDS ORDERED: Pancrelipase DR 12,000 1 CAP FS PRN (15:00)
[2020-12-28] MEDS: GUAIFENESIN SF SOLN 200 MG/10 ML UDCUP PO SCH ×2 (15:11→20:37)
[2020-12-28 17:54] LABS: Vancomycin, Trough 29.2 ug/mL
[2020-12-28] MEDS: Vancomycin HCl 1.5 GM in Sodium Chloride 0.9% 250 ML 300 ML IVPB SCH (18:28)
[2020-12-28] MEDS: Latanoprost 0.005% Ophth Soln 2.5 ml Bottle L EYE SCH (20:39)
[2020-12-29] MEDS: Dextrose 5% in Water 1,000 ML IV SCH ×3 (00:20→18:02)
[2020-12-29] MEDS: Hydrocortisone Sod Succ/PF 100 mg/2 ml Vial IVP SCH ×3 (00:21→18:03)
[2020-12-29] MEDS: Potassium Bicarbonate/Cit Ac 20 MEQ TAB PER TUBE SCH ×4 (00:21→18:03)
[2020-12-29] MEDS: HumaLOG 300 UNITS/3 ML VIAL SC PRN ×4 (00:24→18:09)
[2020-12-29] MEDS: GUAIFENESIN SF SOLN 200 MG/10 ML UDCUP PO SCH ×4 (01:59→20:29)
[2020-12-29 04:02] LABS: Anion Gap 11 mmol/L (10-20); BUN (Urea Nitrogen) 40 mg/dL (9.8-20.1); Calc. Creatinine Clearance 96 mL/min (70-130); Calcium 8.3 mg/dL (7.8-10.44); Carbon Dioxide 26 mmol/L (22-29); Chloride 123 mmol/L (98-107); Glucose 338 mg/dL (70-105); Potassium 3.4 mmol/L (3.5-5.1); Sodium 157 mmol/L (136-145)
[2020-12-29 04:19] LABS: Band 2 % (5-11); Hemoglobin 9.4 g/dL (12.0-16.0); Hypochromia SLIGHT = 6-15 cells (100X) (0-5/hpf); Lymphocytes 22 % (21-51); MDiff Complete? YES; Mean Corpuscular HGB CONC 29.8 g/dL (32.0-36.0); Mean Corpuscular Hemoglobin 29.4 pg (27.0-31.0); Mean Corpuscular Volume 98.6 fL (78.0-98.0); Mean Platelet Volume 11.2 fL (7.4-10.4); Monocytes 4 % (0-10); Neutrophil 72 % (42-75); Nucleated RBC 5 % (0); Platelet Count 152 thou/uL (130-400); Platelet Morphology Comment Appears Adequate; RBC Distribution Width 17.4 % (11.5-14.5); Red Blood Cell (RBC) Count 3.18 mill/uL (4.20-5.40); White Blood Cell (WBC) Count 12.4 thou/uL (4.8-10.8)
[2020-12-29] MEDS: Levothyroxine Sodium 25 MCG TAB PER TUBE SCH (05:03)
[2020-12-29] MEDS: Valproate Sodium 250 mg/5 ml UD Cup PER TUBE SCH ×2 (09:14→20:29)
[2020-12-29] MEDS: Aspirin Chewable 81 MG TAB PER TUBE SCH (09:17)
[2020-12-29] MEDS: busPIRone HCl 5 MG TAB PER TUBE SCH ×2 (09:17→20:29)
[2020-12-29] MEDS: Atorvastatin Calcium 40 MG TAB PER TUBE SCH (09:17)
[2020-12-29] MEDS: Apixaban 2.5 MG TAB PER TUBE SCH ×2 (09:17→20:29)
[2020-12-29] MEDS: Lantus 1000 UNITS/10 ML VIAL SC SCH ×2 (09:18→20:29)
[2020-12-29] MEDS: Dorzolamide HCl 2% Ophth Soln 10 ml Bottle L EYE SCH ×2 (09:18→20:34)
[2020-12-29] MEDS: Metamucil PACK PER TUBE SCH (09:19)
[2020-12-29] MEDS: Polyethylene Glycol 3350 17 GM Packet PER TUBE SCH (09:19)
[2020-12-29] MEDS ORDERED: Potassium Bicarbonate/Cit Ac 20 MEQ TAB PER TUBE SCH (13:30)
[2020-12-29] MEDS: Cefepime 2 GM in Sodium Chloride 0.9% 100 ML IVPB SCH (13:53)
[2020-12-29 17:02] LABS: Vancomycin, Random 15.3 ug/mL (See Comment)
[2020-12-29] MEDS ORDERED: Vancomycin HCl 1 GM in Premix Bag 1 BAG IVPB SCH (18:00)
[2020-12-29] MEDS: Vancomycin HCl 1.25 GM in Sodium Chloride 0.9% 250 ML 250 ML IVPB SCH (20:29)
[2020-12-29] MEDS: Latanoprost 0.005% Ophth Soln 2.5 ml Bottle L EYE SCH (20:34)
[2020-12-30] MEDS: HumaLOG 300 UNITS/3 ML VIAL SC PRN ×3 (00:34→12:23)
[2020-12-30] MEDS: Hydrocortisone Sod Succ/PF 100 mg/2 ml Vial IVP SCH ×2 (00:34→09:36)
[2020-12-30] MEDS: Potassium Bicarbonate/Cit Ac 20 MEQ TAB PER TUBE SCH ×5 (00:34→23:22)
[2020-12-30] MEDS: Dextrose 5% in Water 1,000 ML IV SCH ×2 (00:35→18:44)
[2020-12-30] MEDS: GUAIFENESIN SF SOLN 200 MG/10 ML UDCUP PO SCH ×4 (03:21→21:19)
[2020-12-30 04:23] LABS: Mean Corpuscular HGB CONC 31.3 g/dL (32.0-36.0); Mean Corpuscular Hemoglobin 30.6 pg (27.0-31.0); Mean Corpuscular Volume 97.8 fL (78.0-98.0); Platelet Count 156 thou/uL (130-400); RBC Distribution Width 17.3 % (11.5-14.5); Red Blood Cell (RBC) Count 3.28 mill/uL (4.20-5.40); White Blood Cell (WBC) Count 14.4 thou/uL (4.8-10.8)
[2020-12-30 04:30] LABS: Albumin 2.8 g/dL (3.5-5.0); Phosphorus 2.1 mg/dL (2.3-4.7)
[2020-12-30 04:32] LABS: Anion Gap 11 mmol/L (10-20); BUN (Urea Nitrogen) 32 mg/dL (9.8-20.1); Calc. Creatinine Clearance 122 mL/min (70-130); Calcium 8.3 mg/dL (7.8-10.44); Carbon Dioxide 25 mmol/L (22-29); Chloride 120 mmol/L (98-107); Glucose 373 mg/dL (70-105); Magnesium 2.4 mg/dL (1.6-2.6); Potassium 3.7 mmol/L (3.5-5.1); Sodium 152 mmol/L (136-145)
[2020-12-30 04:47] LABS: Lymphocytes 19 % (21-51); MDiff Complete? YES; Metamyelocyte 1 % (0-0); Monocytes 3 % (0-10); Neutrophil 77 % (42-75); Nucleated RBC 1 % (0); Platelet Morphology Comment Appears Adequate
[2020-12-30] MEDS: Levothyroxine Sodium 25 MCG TAB PER TUBE SCH (04:59)
[2020-12-30] MEDS ORDERED: Potassium Phosphate 15 MMOL in Sodium Chloride 0.9% 250 ML 250 ML IVPB SCH (07:45)
[2020-12-30] MEDS: Valproate Sodium 250 mg/5 ml UD Cup PER TUBE SCH ×2 (09:35→21:21)
[2020-12-30] MEDS: busPIRone HCl 5 MG TAB PER TUBE SCH ×2 (09:35→21:30)
[2020-12-30] MEDS: Atorvastatin Calcium 40 MG TAB PER TUBE SCH (09:36)
[2020-12-30] MEDS: Lantus 1000 UNITS/10 ML VIAL SC SCH ×2 (09:36→21:31)
[2020-12-30] MEDS: Apixaban 2.5 MG TAB PER TUBE SCH ×2 (09:37→21:19)
[2020-12-30] MEDS: Dorzolamide HCl 2% Ophth Soln 10 ml Bottle L EYE SCH ×2 (09:37→21:20)
[2020-12-30] MEDS: Metamucil PACK PER TUBE SCH (09:38)
[2020-12-30] MEDS: Polyethylene Glycol 3350 17 GM Packet PER TUBE SCH (09:38)
[2020-12-30] MEDS: Aspirin Chewable 81 MG TAB PER TUBE SCH (09:38)
[2020-12-30] MEDS: Cefepime 2 GM in Sodium Chloride 0.9% 100 ML IVPB SCH (13:51)
[2020-12-30] MEDS ORDERED: Fentanyl 100 MCG/2 ML VIAL ONE (15:21)
[2020-12-30] MEDS ORDERED: Albumin 5% 500 ML ONE (15:21)
[2020-12-30] MEDS ORDERED: Bupivacaine PF 0.5% 30 ML VIAL ONE (15:31)
[2020-12-30] MEDS ORDERED: Sodium Chloride 0.9% 10 ML ONE (15:31)
[2020-12-30] MEDS ORDERED: Lidocaine 1% w/Epinephrine 1:100K 20 ML VIAL ONE (15:31)
[2020-12-30] MEDS ORDERED: Thrombin 5000 UNITS/5 ML VIAL ONE ×2 (15:31→16:52)
[2020-12-30] MEDS ORDERED: Mineral Oil Sterile 10ML 10 ML UDCUP ONE ×2 (15:31→16:52)
[2020-12-30] MEDS ORDERED: Bacitracin Zinc Ointment 30 gm TUBE ONE ×2 (15:31→18:07)
[2020-12-30] MEDS ORDERED: ePHEDrine Sulfate 50 MG/10 ML VIAL ONE (16:02)
[2020-12-30] MEDS ORDERED: PROPOFOL 200 MG/20 ML VIAL ONE (16:02)
[2020-12-30] MEDS: predniSONE 20 MG TAB PER TUBE SCH (21:19)
[2020-12-30] MEDS: Latanoprost 0.005% Ophth Soln 2.5 ml Bottle L EYE SCH (21:20)
[2020-12-30] MEDS: Vancomycin HCl 1.25 GM in Sodium Chloride 0.9% 250 ML 250 ML IVPB SCH (21:28)
[2020-12-31] MEDS: HumaLOG 300 UNITS/3 ML VIAL SC PRN ×4 (00:47→21:00)
[2020-12-31] MEDS: GUAIFENESIN SF SOLN 200 MG/10 ML UDCUP PO SCH ×4 (03:09→20:52)
[2020-12-31 04:07] LABS: Anion Gap 12 mmol/L (10-20); BUN (Urea Nitrogen) 26 mg/dL (9.8-20.1); Calc. Creatinine Clearance 164 mL/min (70-130); Calcium 8.2 mg/dL (7.8-10.44); Carbon Dioxide 25 mmol/L (22-29); Chloride 121 mmol/L (98-107); Glucose 231 mg/dL (70-105); Potassium 3.7 mmol/L (3.5-5.1); Sodium 154 mmol/L (136-145)
[2020-12-31 04:59] LABS: Band 14 % (5-11); Hemoglobin 9.7 g/dL (12.0-16.0); Lymphocytes 30 % (21-51); MDiff Complete? YES; Mean Corpuscular HGB CONC 31.1 g/dL (32.0-36.0); Mean Corpuscular Hemoglobin 30.3 pg (27.0-31.0); Mean Corpuscular Volume 97.5 fL (78.0-98.0); Mean Platelet Volume 10.8 fL (7.4-10.4); Monocytes 1 % (0-10); Neutrophil 55 % (42-75); Nucleated RBC 2 % (0); Platelet Count 156 thou/uL (130-400); RBC Distribution Width 17.1 % (11.5-14.5); Red Blood Cell (RBC) Count 3.18 mill/uL (4.20-5.40); White Blood Cell (WBC) Count 17.3 thou/uL (4.8-10.8)
[2020-12-31] MEDS: Levothyroxine Sodium 25 MCG TAB PER TUBE SCH (05:33)
[2020-12-31] MEDS: Potassium Bicarbonate/Cit Ac 20 MEQ TAB PER TUBE SCH ×3 (05:33→17:23)
[2020-12-31] MEDS: Atorvastatin Calcium 40 MG TAB PER TUBE SCH (09:03)
[2020-12-31] MEDS: Valproate Sodium 250 mg/5 ml UD Cup PER TUBE SCH ×2 (09:03→20:53)
[2020-12-31] MEDS: Aspirin Chewable 81 MG TAB PER TUBE SCH (09:04)
[2020-12-31] MEDS: Metamucil PACK PER TUBE SCH (09:04)
[2020-12-31] MEDS: predniSONE 20 MG TAB PER TUBE SCH (09:04)
[2020-12-31] MEDS: busPIRone HCl 5 MG TAB PER TUBE SCH ×2 (09:04→20:52)
[2020-12-31] MEDS: Polyethylene Glycol 3350 17 GM Packet PER TUBE SCH (09:04)
[2020-12-31] MEDS: Apixaban 2.5 MG TAB PER TUBE SCH ×2 (09:04→20:52)
[2020-12-31] MEDS: Dorzolamide HCl 2% Ophth Soln 10 ml Bottle L EYE SCH ×2 (09:04→20:54)
[2020-12-31] MEDS: Lantus 1000 UNITS/10 ML VIAL SC SCH ×2 (09:05→21:00)
[2020-12-31] MEDS: Acetaminophen 325 MG TAB PO PRN (12:06)
[2020-12-31 12:36] VITALS: BMI 45.6
[2020-12-31] MEDS: Cefepime 2 GM in Sodium Chloride 0.9% 100 ML IVPB SCH (14:28)
[2020-12-31 19:16] LABS: Vancomycin, Trough 17.1 ug/mL
[2020-12-31] MEDS: Vancomycin HCl 1.25 GM in Sodium Chloride 0.9% 250 ML 250 ML IVPB SCH (20:48)
[2020-12-31] MEDS: Latanoprost 0.005% Ophth Soln 2.5 ml Bottle L EYE SCH (20:53)
[2021-01-01] MEDS: Acetaminophen 325 MG TAB PO PRN ×2 (00:02→05:46)
[2021-01-01] MEDS: Potassium Bicarbonate/Cit Ac 20 MEQ TAB PER TUBE SCH ×2 (00:02→05:45)
[2021-01-01] MEDS: GUAIFENESIN SF SOLN 200 MG/10 ML UDCUP PO SCH ×4 (01:47→20:51)
[2021-01-01] MEDS: Cefepime 2 GM in Sodium Chloride 0.9% 100 ML IVPB SCH ×2 (01:48→14:25)
[2021-01-01 03:51] LABS: #Basophils 0.1 thou/uL (0.0-0.2); #Eosinphils 0.7 thou/uL (0.0-0.7); #Lymphocytes 5.1 thou/uL (1.20-3.40); #Monocytes 1.3 thou/uL (0.11-0.59); #Neutrophils 10.8 thou/uL (1.40-6.50); %Basophils 0.7 % (0.0-1.0); %Lymphocytes 28.4 % (21.0-51.0); %Monocytes 7.2 % (0.0-10.0); %Neutrophils 59.8 % (42.0-75.0); Hemoglobin 9.5 g/dL (12.0-16.0); Mean Corpuscular HGB CONC 30.7 g/dL (32.0-36.0); Mean Platelet Volume 10.6 fL (7.4-10.4); Platelet Count 210 thou/uL (130-400); RBC Distribution Width 17.5 % (11.5-14.5); Red Blood Cell (RBC) Count 3.16 mill/uL (4.20-5.40); White Blood Cell (WBC) Count 18.1 thou/uL (4.8-10.8)
[2021-01-01 04:12] LABS: Calcium 8.2 mg/dL (7.8-10.44); Chloride 120 mmol/L (98-107); Potassium 4.8 mmol/L (3.5-5.1); Sodium 149 mmol/L (136-145)
[2021-01-01 04:13] LABS: Glucose 203 mg/dL (70-105)
[2021-01-01 04:14] LABS: Anion Gap 12 mmol/L (10-20); Carbon Dioxide 22 mmol/L (22-29)
[2021-01-01 04:16] LABS: Calc. Creatinine Clearance 161 mL/min (70-130); Phosphorus 1.9 mg/dL (2.3-4.7)
[2021-01-01 04:17] LABS: BUN (Urea Nitrogen) 25 mg/dL (9.8-20.1)
[2021-01-01 04:18] LABS: Magnesium 2.3 mg/dL (1.6-2.6)
[2021-01-01] MEDS ORDERED: Potassium Phosphate 15 MMOL in Sodium Chloride 0.9% 250 ML 250 ML IVPB SCH (05:15)
[2021-01-01] MEDS: Levothyroxine Sodium 25 MCG TAB PER TUBE SCH (05:46)
[2021-01-01] MEDS: HumaLOG 300 UNITS/3 ML VIAL SC PRN ×2 (06:03→16:46)
[2021-01-01] MEDS: busPIRone HCl 5 MG TAB PER TUBE SCH ×2 (08:27→20:51)
[2021-01-01] MEDS: predniSONE 20 MG TAB PER TUBE SCH (08:27)
[2021-01-01] MEDS: Atorvastatin Calcium 40 MG TAB PER TUBE SCH (08:28)
[2021-01-01] MEDS: Apixaban 2.5 MG TAB PER TUBE SCH ×2 (08:28→20:51)
[2021-01-01] MEDS: Aspirin Chewable 81 MG TAB PER TUBE SCH (08:28)
[2021-01-01] MEDS: PHOS-NAK 1 PKT PACK PER TUBE SCH ×3 (08:28→20:51)
[2021-01-01] MEDS: Polyethylene Glycol 3350 17 GM Packet PER TUBE SCH (08:29)
[2021-01-01] MEDS: Dorzolamide HCl 2% Ophth Soln 10 ml Bottle L EYE SCH ×2 (08:30→20:52)
[2021-01-01] MEDS: Metamucil PACK PER TUBE SCH (08:30)
[2021-01-01] MEDS: Valproate Sodium 250 mg/5 ml UD Cup PER TUBE SCH ×2 (08:30→20:51)
[2021-01-01] MEDS: Lantus 1000 UNITS/10 ML VIAL SC SCH ×2 (08:31→21:15)
[2021-01-01] MEDS: Vancomycin HCl 1.25 GM in Sodium Chloride 0.9% 250 ML 250 ML IVPB SCH (20:46)
[2021-01-01] MEDS: Latanoprost 0.005% Ophth Soln 2.5 ml Bottle L EYE SCH (20:51)
[2021-01-02] MEDS: Cefepime 2 GM in Sodium Chloride 0.9% 100 ML IVPB SCH ×2 (01:53→13:51)
[2021-01-02] MEDS: GUAIFENESIN SF SOLN 200 MG/10 ML UDCUP PO SCH ×4 (01:53→21:00)
[2021-01-02 03:51] LABS: Hemoglobin 9.3 g/dL (12.0-16.0); Mean Corpuscular HGB CONC 30.6 g/dL (32.0-36.0); Mean Corpuscular Hemoglobin 30.2 pg (27.0-31.0); Mean Corpuscular Volume 98.8 fL (78.0-98.0); Mean Platelet Volume 10.5 fL (7.4-10.4); Platelet Count 230 thou/uL (130-400); RBC Distribution Width 18.8 % (11.5-14.5); Red Blood Cell (RBC) Count 3.06 mill/uL (4.20-5.40)
[2021-01-02 04:06] LABS: Anion Gap 9 mmol/L (10-20); BUN (Urea Nitrogen) 24 mg/dL (9.8-20.1); Calc. Creatinine Clearance 172 mL/min (70-130); Calcium 8.2 mg/dL (7.8-10.44); Carbon Dioxide 23 mmol/L (22-29); Chloride 115 mmol/L (98-107); Glucose 185 mg/dL (70-105); Sodium 142 mmol/L (136-145)
[2021-01-02 04:18] LABS: Eosinophils 6 % (0-10); Lymphocytes 38 % (21-51); MDiff Complete? YES; Monocytes 5 % (0-10); Neutrophil 50 % (42-75); Nucleated RBC 2 % (0); Platelet Morphology Comment Appears Adequate
[2021-01-02] MEDS: HumaLOG 300 UNITS/3 ML VIAL SC PRN ×4 (04:59→21:07)
[2021-01-02] MEDS: Levothyroxine Sodium 25 MCG TAB PER TUBE SCH (04:59)
[2021-01-02] MEDS ORDERED: predniSONE 20 MG TAB PER TUBE SCH (09:00)
[2021-01-02] MEDS: busPIRone HCl 5 MG TAB PER TUBE SCH ×2 (09:14→20:44)
[2021-01-02] MEDS: Atorvastatin Calcium 40 MG TAB PER TUBE SCH (09:14)
[2021-01-02] MEDS: Aspirin Chewable 81 MG TAB PER TUBE SCH (09:14)
[2021-01-02] MEDS: Metamucil PACK PER TUBE SCH (09:14)
[2021-01-02] MEDS: PHOS-NAK 1 PKT PACK PER TUBE SCH ×3 (09:14→20:45)
[2021-01-02] MEDS: Apixaban 2.5 MG TAB PER TUBE SCH ×2 (09:15→20:44)
[2021-01-02] MEDS: Valproate Sodium 250 mg/5 ml UD Cup PER TUBE SCH ×2 (09:15→20:44)
[2021-01-02] MEDS: Dorzolamide HCl 2% Ophth Soln 10 ml Bottle L EYE SCH ×2 (09:15→20:46)
[2021-01-02] MEDS: Polyethylene Glycol 3350 17 GM Packet PER TUBE SCH (09:16)
[2021-01-02] MEDS: Lantus 1000 UNITS/10 ML VIAL SC SCH ×2 (09:17→20:46)
[2021-01-02] MEDS: predniSONE 20 MG TAB PER TUBE SCH (09:37)
[2021-01-02] MEDS ORDERED: Torsemide 10 MG TAB PER TUBE SCH (12:45)
[2021-01-02] MEDS: Vancomycin HCl 1.25 GM in Sodium Chloride 0.9% 250 ML 250 ML IVPB SCH (20:44)
[2021-01-02] MEDS: Latanoprost 0.005% Ophth Soln 2.5 ml Bottle L EYE SCH (20:46)
[2021-01-03] MEDS: GUAIFENESIN SF SOLN 200 MG/10 ML UDCUP PO SCH ×4 (02:20→21:20)
[2021-01-03] MEDS: Cefepime 2 GM in Sodium Chloride 0.9% 100 ML IVPB SCH (02:20)
[2021-01-03 03:58] LABS: Anion Gap 11 mmol/L (10-20); BUN (Urea Nitrogen) 26 mg/dL (9.8-20.1); Calc. Creatinine Clearance 167 mL/min (70-130); Calcium 8.8 mg/dL (7.8-10.44); Carbon Dioxide 24 mmol/L (22-29); Chloride 109 mmol/L (98-107); Glucose 142 mg/dL (70-105); Magnesium 1.8 mg/dL (1.6-2.6); Potassium 4.5 mmol/L (3.5-5.1); Sodium 139 mmol/L (136-145)
[2021-01-03 04:30] LABS: Band 1 % (5-11); Eosinophils 14 % (0-10); Large Platelets SLIGHT; Lymphocytes 28 % (21-51); MDiff Complete? YES; Mean Corpuscular HGB CONC 31.6 g/dL (32.0-36.0); Mean Platelet Volume 10.5 fL (7.4-10.4); Monocytes 5 % (0-10); Neutrophil 52 % (42-75); Platelet Count 259 thou/uL (130-400); Platelet Morphology Comment Appears Adequate; RBC Distribution Width 19.8 % (11.5-14.5); Red Blood Cell (RBC) Count 3.24 mill/uL (4.20-5.40); White Blood Cell (WBC) Count 18.4 thou/uL (4.8-10.8)
[2021-01-03] MEDS: Levothyroxine Sodium 25 MCG TAB PER TUBE SCH (05:06)
[2021-01-03] MEDS: Apixaban 2.5 MG TAB PER TUBE SCH ×2 (08:44→21:11)
[2021-01-03] MEDS: predniSONE 20 MG TAB PER TUBE SCH (08:44)
[2021-01-03] MEDS: PHOS-NAK 1 PKT PACK PER TUBE SCH (08:44)
[2021-01-03] MEDS: Aspirin Chewable 81 MG TAB PER TUBE SCH (08:44)
[2021-01-03] MEDS: Valproate Sodium 250 mg/5 ml UD Cup PER TUBE SCH ×2 (08:44→21:10)
[2021-01-03] MEDS: Atorvastatin Calcium 40 MG TAB PER TUBE SCH (08:44)
[2021-01-03] MEDS: Dorzolamide HCl 2% Ophth Soln 10 ml Bottle L EYE SCH ×2 (08:44→21:11)
[2021-01-03] MEDS: busPIRone HCl 5 MG TAB PER TUBE SCH ×2 (08:44→21:21)
[2021-01-03] MEDS: Torsemide 10 MG TAB PER TUBE SCH (08:44)
[2021-01-03] MEDS: Polyethylene Glycol 3350 17 GM Packet PER TUBE SCH (08:44)
[2021-01-03] MEDS: Metamucil PACK PER TUBE SCH (08:44)
[2021-01-03] MEDS: Lantus 1000 UNITS/10 ML VIAL SC SCH ×2 (08:45→21:21)
[2021-01-03] MEDS: HumaLOG 300 UNITS/3 ML VIAL SC PRN ×2 (12:44→18:25)
[2021-01-03 19:37] LABS: Vancomycin, Trough 20.7 ug/mL
[2021-01-03] MEDS: Amoxicillin/Potassium Clav 600 mg/5 ml Oral Suspension PO SCH (21:10)
[2021-01-03] MEDS: Latanoprost 0.005% Ophth Soln 2.5 ml Bottle L EYE SCH (21:11)
[2021-01-04] MEDS: GUAIFENESIN SF SOLN 200 MG/10 ML UDCUP PO SCH ×4 (03:05→20:26)
[2021-01-04] MEDS: Levothyroxine Sodium 25 MCG TAB PER TUBE SCH (04:51)
[2021-01-04 05:18] LABS: Anion Gap 13 mmol/L (10-20); BUN (Urea Nitrogen) 27 mg/dL (9.8-20.1); Calc. Creatinine Clearance 168 mL/min (70-130); Calcium 8.8 mg/dL (7.8-10.44); Carbon Dioxide 26 mmol/L (22-29); Chloride 105 mmol/L (98-107); Glucose 133 mg/dL (70-105); Magnesium 1.9 mg/dL (1.6-2.6); Sodium 140 mmol/L (136-145)
[2021-01-04 06:18] LABS: #Basophils 0.1 thou/uL (0.0-0.2); #Eosinphils 2.4 thou/uL (0.0-0.7); #Lymphocytes 4.8 thou/uL (1.20-3.40); #Monocytes 1.3 thou/uL (0.11-0.59); #Neutrophils 9.3 thou/uL (1.40-6.50); %Basophils 0.4 % (0.0-1.0); %Eosinophils 13.6 % (0.0-10.0); %Lymphocytes 26.9 % (21.0-51.0); %Neutrophils 52.1 % (42.0-75.0); Anisocytosis SLIGHT = 6-15 cells (100X) (0-5/hpf); MDiff Complete? YES; Mean Corpuscular HGB CONC 29.9 g/dL (32.0-36.0); Mean Corpuscular Hemoglobin 29.3 pg (27.0-31.0); Mean Platelet Volume 10.5 fL (7.4-10.4); Platelet Count 324 thou/uL (130-400); Platelet Morphology Comment Appears Adequate; RBC Distribution Width 19.9 % (11.5-14.5); Red Blood Cell (RBC) Count 3.43 mill/uL (4.20-5.40); White Blood Cell (WBC) Count 17.8 thou/uL (4.8-10.8)
[2021-01-04] MEDS: Torsemide 10 MG TAB PER TUBE SCH (09:39)
[2021-01-04] MEDS: Amoxicillin/Potassium Clav 600 mg/5 ml Oral Suspension PO SCH ×2 (09:39→20:25)
[2021-01-04] MEDS: Metamucil PACK PER TUBE SCH (09:39)
[2021-01-04] MEDS: Polyethylene Glycol 3350 17 GM Packet PER TUBE SCH (09:39)
[2021-01-04] MEDS: Atorvastatin Calcium 40 MG TAB PER TUBE SCH (09:40)
[2021-01-04] MEDS: Aspirin Chewable 81 MG TAB PER TUBE SCH (09:40)
[2021-01-04] MEDS: Lantus 1000 UNITS/10 ML VIAL SC SCH ×2 (09:40→20:27)
[2021-01-04] MEDS: Apixaban 2.5 MG TAB PER TUBE SCH ×2 (09:40→20:27)
[2021-01-04] MEDS: predniSONE 20 MG TAB PER TUBE SCH (09:40)
[2021-01-04] MEDS: busPIRone HCl 5 MG TAB PER TUBE SCH ×2 (09:40→20:27)
[2021-01-04] MEDS: Dorzolamide HCl 2% Ophth Soln 10 ml Bottle L EYE SCH ×2 (09:41→20:25)
[2021-01-04] MEDS: Valproate Sodium 250 mg/5 ml UD Cup PER TUBE SCH ×2 (09:44→20:26)
[2021-01-04] MEDS: HumaLOG 300 UNITS/3 ML VIAL SC PRN (17:54)
[2021-01-04] MEDS: Latanoprost 0.005% Ophth Soln 2.5 ml Bottle L EYE SCH (20:25)
[2021-01-05] MEDS: GUAIFENESIN SF SOLN 200 MG/10 ML UDCUP PO SCH ×4 (02:19→21:03)
[2021-01-05 04:56] LABS: #Eosinphils 1.6 thou/uL (0.0-0.7); #Lymphocytes 4.5 thou/uL (1.20-3.40); %Basophils 0.3 % (0.0-1.0); %Eosinophils 9.9 % (0.0-10.0); %Lymphocytes 27.9 % (21.0-51.0); %Monocytes 6.4 % (0.0-10.0); %Neutrophils 55.5 % (42.0-75.0); Hemoglobin 9.6 g/dL (12.0-16.0); Mean Corpuscular Hemoglobin 30.2 pg (27.0-31.0); Mean Corpuscular Volume 97.5 fL (78.0-98.0); Mean Platelet Volume 10.5 fL (7.4-10.4); Platelet Count 348 thou/uL (130-400); RBC Distribution Width 19.6 % (11.5-14.5); Red Blood Cell (RBC) Count 3.19 mill/uL (4.20-5.40); White Blood Cell (WBC) Count 16.1 thou/uL (4.8-10.8)
[2021-01-05] MEDS: Levothyroxine Sodium 25 MCG TAB PER TUBE SCH (05:16)
[2021-01-05 06:01] LABS: Anion Gap 12 mmol/L (10-20); BUN (Urea Nitrogen) 26 mg/dL (9.8-20.1); Calc. Creatinine Clearance 172 mL/min (70-130); Calcium 8.6 mg/dL (7.8-10.44); Carbon Dioxide 27 mmol/L (22-29); Chloride 102 mmol/L (98-107); Glucose 136 mg/dL (70-105); Magnesium 1.9 mg/dL (1.6-2.6); Potassium 3.9 mmol/L (3.5-5.1); Sodium 137 mmol/L (136-145)
[2021-01-05] MEDS: Metamucil PACK PER TUBE SCH (10:18)
[2021-01-05] MEDS: Aspirin Chewable 81 MG TAB PER TUBE SCH (10:19)
[2021-01-05] MEDS: Polyethylene Glycol 3350 17 GM Packet PER TUBE SCH (10:19)
[2021-01-05] MEDS: Lantus 1000 UNITS/10 ML VIAL SC SCH ×2 (10:19→21:04)
[2021-01-05] MEDS: predniSONE 20 MG TAB PER TUBE SCH (10:20)
[2021-01-05] MEDS: Torsemide 10 MG TAB PER TUBE SCH (10:20)
[2021-01-05] MEDS: Atorvastatin Calcium 40 MG TAB PER TUBE SCH (10:20)
[2021-01-05] MEDS: busPIRone HCl 5 MG TAB PER TUBE SCH ×2 (10:20→21:04)
[2021-01-05] MEDS: Apixaban 2.5 MG TAB PER TUBE SCH ×2 (10:20→21:04)
[2021-01-05] MEDS: Dorzolamide HCl 2% Ophth Soln 10 ml Bottle L EYE SCH ×2 (10:20→21:03)
[2021-01-05] MEDS: Valproate Sodium 250 mg/5 ml UD Cup PER TUBE SCH ×2 (10:21→21:02)
[2021-01-05] MEDS: Amoxicillin/Potassium Clav 600 mg/5 ml Oral Suspension PO SCH ×2 (10:24→21:03)
[2021-01-05] MEDS: HumaLOG 300 UNITS/3 ML VIAL SC PRN (18:26)
[2021-01-05] MEDS: Latanoprost 0.005% Ophth Soln 2.5 ml Bottle L EYE SCH (21:03)
[2021-01-06] MEDS: GUAIFENESIN SF SOLN 200 MG/10 ML UDCUP PO SCH ×4 (01:49→20:42)
[2021-01-06 04:55] LABS: Anion Gap 12 mmol/L (10-20); BUN (Urea Nitrogen) 25 mg/dL (9.8-20.1); Calc. Creatinine Clearance 166 mL/min (70-130); Calcium 8.5 mg/dL (7.8-10.44); Carbon Dioxide 25 mmol/L (22-29); Chloride 100 mmol/L (98-107); Glucose 174 mg/dL (70-105); Potassium 4.5 mmol/L (3.5-5.1); Sodium 132 mmol/L (136-145)
[2021-01-06] MEDS: Levothyroxine Sodium 25 MCG TAB PER TUBE SCH (05:49)
[2021-01-06 05:59] LABS: Band 7 % (5-11); Eosinophils 8 % (0-10); Hemoglobin 9.7 g/dL (12.0-16.0); Lymphocytes 30 % (21-51); MDiff Complete? YES; Mean Corpuscular HGB CONC 30.9 g/dL (32.0-36.0); Mean Corpuscular Hemoglobin 30.3 pg (27.0-31.0); Mean Corpuscular Volume 98.3 fL (78.0-98.0); Mean Platelet Volume 10.6 fL (7.4-10.4); Monocytes 5 % (0-10); Neutrophil 50 % (42-75); Platelet Count 331 thou/uL (130-400); RBC Distribution Width 19.7 % (11.5-14.5); Red Blood Cell (RBC) Count 3.18 mill/uL (4.20-5.40); White Blood Cell (WBC) Count 15.4 thou/uL (4.8-10.8)
[2021-01-06] MEDS: predniSONE 20 MG TAB PER TUBE SCH (09:27)
[2021-01-06] MEDS: Apixaban 2.5 MG TAB PER TUBE SCH ×2 (09:28→20:44)
[2021-01-06] MEDS: Aspirin Chewable 81 MG TAB PER TUBE SCH (09:28)
[2021-01-06] MEDS: busPIRone HCl 5 MG TAB PER TUBE SCH ×2 (09:28→20:44)
[2021-01-06] MEDS: Amoxicillin/Potassium Clav 600 mg/5 ml Oral Suspension PO SCH ×2 (09:28→20:48)
[2021-01-06] MEDS: Dorzolamide HCl 2% Ophth Soln 10 ml Bottle L EYE SCH ×2 (09:28→20:41)
[2021-01-06] MEDS: Atorvastatin Calcium 40 MG TAB PER TUBE SCH (09:28)
[2021-01-06] MEDS: Torsemide 10 MG TAB PER TUBE SCH (09:29)
[2021-01-06] MEDS: Polyethylene Glycol 3350 17 GM Packet PER TUBE SCH (09:29)
[2021-01-06] MEDS: Metamucil PACK PER TUBE SCH (09:29)
[2021-01-06] MEDS: Valproate Sodium 250 mg/5 ml UD Cup PER TUBE SCH ×2 (09:30→20:42)
[2021-01-06] MEDS: Lantus 1000 UNITS/10 ML VIAL SC SCH ×2 (09:31→20:43)
[2021-01-06] MEDS: Latanoprost 0.005% Ophth Soln 2.5 ml Bottle L EYE SCH (20:42)
[2021-01-07] MEDS: GUAIFENESIN SF SOLN 200 MG/10 ML UDCUP PO SCH ×3 (04:20→14:58)
[2021-01-07 04:49] LABS: #Basophils 0.1 thou/uL (0.0-0.2); #Eosinphils 0.7 thou/uL (0.0-0.7); #Lymphocytes 4.3 thou/uL (1.20-3.40); #Monocytes 1.1 thou/uL (0.11-0.59); %Basophils 0.5 % (0.0-1.0); %Eosinophils 4.1 % (0.0-10.0); %Lymphocytes 26.2 % (21.0-51.0); %Neutrophils 62.1 % (42.0-75.0); Hemoglobin 9.9 g/dL (12.0-16.0); Mean Corpuscular HGB CONC 30.5 g/dL (32.0-36.0); Mean Corpuscular Hemoglobin 29.6 pg (27.0-31.0); Mean Platelet Volume 10.1 fL (7.4-10.4); Platelet Count 398 thou/uL (130-400); RBC Distribution Width 19.5 % (11.5-14.5); Red Blood Cell (RBC) Count 3.34 mill/uL (4.20-5.40); White Blood Cell (WBC) Count 16.2 thou/uL (4.8-10.8)
[2021-01-07 05:20] LABS: Anion Gap 13 mmol/L (10-20); BUN (Urea Nitrogen) 24 mg/dL (9.8-20.1); Calc. Creatinine Clearance 166 mL/min (70-130); Calcium 8.8 mg/dL (7.8-10.44); Carbon Dioxide 24 mmol/L (22-29); Chloride 104 mmol/L (98-107); Glucose 186 mg/dL (70-105); Magnesium 2.1 mg/dL (1.6-2.6); Potassium 4.2 mmol/L (3.5-5.1); Sodium 137 mmol/L (136-145)
[2021-01-07] MEDS: Levothyroxine Sodium 25 MCG TAB PER TUBE SCH (06:03)
[2021-01-07] MEDS: Amoxicillin/Potassium Clav 600 mg/5 ml Oral Suspension PO SCH (09:13)
[2021-01-07] MEDS: Metamucil PACK PER TUBE SCH (09:13)
[2021-01-07] MEDS: Apixaban 2.5 MG TAB PER TUBE SCH (09:14)
[2021-01-07] MEDS: Polyethylene Glycol 3350 17 GM Packet PER TUBE SCH (09:14)
[2021-01-07] MEDS: Valproate Sodium 250 mg/5 ml UD Cup PER TUBE SCH (09:16)
[2021-01-07] MEDS: Atorvastatin Calcium 40 MG TAB PER TUBE SCH (09:17)
[2021-01-07] MEDS: Aspirin Chewable 81 MG TAB PER TUBE SCH (09:17)
[2021-01-07] MEDS: predniSONE 20 MG TAB PER TUBE SCH (09:17)
[2021-01-07] MEDS: Acetaminophen 325 MG TAB PO PRN (09:17)
[2021-01-07] MEDS: busPIRone HCl 5 MG TAB PER TUBE SCH (09:18)
[2021-01-07] MEDS: Lantus 1000 UNITS/10 ML VIAL SC SCH (09:18)
[2021-01-07] MEDS: Dorzolamide HCl 2% Ophth Soln 10 ml Bottle L EYE SCH (09:18)
[2021-01-07] MEDS: Torsemide 10 MG TAB PER TUBE SCH (09:19)
[2021-01-07 14:54] VITALS: BP 101/56; TEMP 98.3
== END 2021-01-07 16:20 | DRG 853 ==
LOC: ERS 12:26 → 2NO 15:35 → CCU 12-26 08:49 → IMCU/EMU 12-27 12:58 → 2NO 01-03 21:10
PROVIDERS: ADMIT Family Medicine; ATTEND Internal Medicine
PROC: 3E033XZ Introduction of Vasopressor into Peripheral Vein, Percutaneous Approach (ICD-10-PCS; 2020-12-26)
PROC: 02HV33Z Insertion of Infusion Device into Superior Vena Cava, Percutaneous Approach (ICD-10-PCS; 2020-12-26)
PROC: 0HRFX74 Replacement of Right Hand Skin with Autologous Tissue Substitute, Partial Thickness, External Approach (ICD-10-PCS; principal; 2020-12-30)
PROC: 0PBT0ZZ Excision of Right Finger Phalanx, Open Approach (ICD-10-PCS; 2020-12-30)
PROC: 0HBHXZZ Excision of Right Upper Leg Skin, External Approach (ICD-10-PCS; 2020-12-30)
DX: A41.9 Sepsis, unspecified organism (principal); L89.153 Pressure ulcer of sacral region, stage 3; G93.41 Metabolic encephalopathy; J18.9 Pneumonia, unspecified organism; J96.21 Acute and chronic respiratory failure with hypoxia; E11.52 Type 2 diabetes mellitus with diabetic peripheral angiopathy with gangrene; N17.9 Acute kidney failure, unspecified; E87.0 Hyperosmolality and hypernatremia; Z68.42 Body mass index [BMI] 45.0-49.9, adult; M87.3 Other secondary osteonecrosis; Z86.16 Personal history of COVID-19; Z20.822 Contact with and (suspected) exposure to COVID-19; I12.9 Hypertensive chronic kidney disease with stage 1 through stage 4 chronic kidney disease, or unspecified chronic kidney disease; E78.5 Hyperlipidemia, unspecified; E11.22 Type 2 diabetes mellitus with diabetic chronic kidney disease; G40.909 Epilepsy, unspecified, not intractable, without status epilepticus; E03.9 Hypothyroidism, unspecified; E86.0 Dehydration; H54.40 Blindness, one eye, unspecified eye; H40.9 Unspecified glaucoma; K21.9 Gastro-esophageal reflux disease without esophagitis; F41.9 Anxiety disorder, unspecified; E66.01 Morbid (severe) obesity due to excess calories; E86.9 Volume depletion, unspecified; N18.9 Chronic kidney disease, unspecified; S60.221A Contusion of right hand, initial encounter; E11.65 Type 2 diabetes mellitus with hyperglycemia; I48.91 Unspecified atrial fibrillation; X58.XXXA Exposure to other specified factors, initial encounter; E87.6 Hypokalemia; E83.39 Other disorders of phosphorus metabolism; Z86.73 Personal history of transient ischemic attack (TIA), and cerebral infarction without residual deficits; Z79.82 Long term (current) use of aspirin; Z79.890 Hormone replacement therapy; Z79.4 Long term (current) use of insulin; Z79.51 Long term (current) use of inhaled steroids; Z79.899 Other long term (current) drug therapy; Z93.0 Tracheostomy status; Z79.01 Long term (current) use of anticoagulants; Z93.1 Gastrostomy status; M62.241 Nontraumatic ischemic infarction of muscle, right hand
CPT/HCPCS: 36415; 36416; 51701; 70450; 71045; 80048; 80053; 80202; 81003; 81015; 82040; 82553; 82570; 83605; 83735; 83880; 84100; 84145; 84156; 84300; 84443; 84484; 85025; 86140; 87040; 87086; 87149; 87635; 93005; 94640; 96365; 96366; 96367; J0456; J0692; J1720; J1815; J2704; J3010; J3370; J3490; J7030; J7050; J7512; J7620; P9045; P9047; S0020; U0003; U0005